=== PATIENT | female | born 1990 | race Caucasian/White ===

== ENCOUNTER 2020-03-30 11:54 | Outpatient (CLI) | payer OTHER ==
--- NOTE | 2020-03-30 16:56 | XRAY Report ---
PROCEDURE: Knee 3 View LT INDICATIONS: KNEE PAIN, LEFT TECHNIQUE: 3 views of the left knee(s) were acquired. COMPARISON: None. FINDINGS: Bones: No acute fractures or dislocations. No suspicious bony lesions. Soft tissues: Small joint effusion. No suspicious soft tissue calcifications. IMPRESSION: Small suprapatellar joint effusion. No acute fracture or dislocation of the left knee. If there is persistent clinical concern for a radiographically occult fracture, recommend immobiliza tion and repeat imaging in 10 to 14 days. Reviewed by: Richard Gomez MD on 03/30/2020 4:54 PM PST Approved by: Richard Gomez MD on 03/30/2020 4:54 PM PST Station ID: [id number]
== END 2020-03-30 23:59 | disposition home or self-care (01) ==
LOC: DI.N 11:54
PROVIDERS: ATTEND Family Medicine
DX: M25.562 Pain in left knee (principal); M25.462 Effusion, left knee

== ENCOUNTER 2020-04-01 06:23 | Emergency (ER) | payer OTHER ==
[2020-04-01] MEDS ORDERED: IBUPROFEN 600 MG TABLET PO STA (07:17)
--- NOTE | 2020-04-01 07:22 | ED Physician Documentation ---
History of Present Illness - Stated complaint Stated Complaint: LT KNEE PX - Chief complaint Chief Complaint: Trauma Ext - History obtained from History obtained from: Patient - Additonal information Additional information: 29-year-old woman with history of diabetes, recent left knee injury 3 weeks ago status post clinic visit 2 days ago presents with worsening pain since that time. She states that she had a mechanical fall onto the knee with sudden onset severe pain that was constant gradually improving, but then started to result in swelling about a week ago prompting her to go to the clinic. X-rays at that time showed no fracture but a suprapatellar effusion. She was discharged and told she had a soft tissue injury. Patient states she has been ambulatory but that her pain has been constant and the swelling is getting worse. 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 - Present Medications Home Medications: Ambulatory Orders Medication Instructions Recorded Confirmed Insulin Glargine [Lantus Solostar] 10 - 20 units SUBQ DAILY 04/01/20 04/01/20 Sitagliptin Phos/Metformin HCl 1 tab PO BID 04/01/20 04/01/20 [Janumet 50-1,000 mg Tablet] - Allergies Allergies/Adverse Reactions: Allergies Allergy/AdvReac Type Severity Reaction Status Date / Time No Known Drug Allergies Allergy Verified 04/01/20 06:38 - Social History Does the pt smoke?: No Smoking Status: Never smoker Does the pt drink ETOH?: Yes Does the pt have substance abuse?: No - Immunizations Immunizations are current?: Yes - POLST Patient has POLST: No PD ED PE NORMAL - Vitals Vital signs reviewed: Yes - General General: Alert and oriented X 3 - HEENT HEENT: PERRL, EOMI - Extremities Extremities: Other (Left knee tender with range of motion. No bony tenderness. +anterior drawer sign. tender with vargus stress) - Neuro Neuro: Other (Normal strength, sensation, and movement in distal left lower extremity) Results - Vitals Vitals: Vital Signs - 24 hr 04/01/20 06:25 Temperature 36.8 C Heart Rate 95 Respiratory 16 Rate Blood Pressure 130/84 H O2 Saturation 98 Oxygen O2 Source Room air PD MEDICAL DECISION MAKING - ED course ED course: 29-year-old woman with left knee injury presents for second opinion after being seen in clinic 2 days ago with worsening pain. Agree that she has a soft tissue injury (likely ligament strain). Will repeat xrays, place in knee immobilizer and have her follow-up with orthopedics in 8 to 10 days. Return precautions given. Departure - Departure Clinical Impression: Suprapatellar effusion of knee, Knee pain Condition: Good Instructions: ED RICE, ED Immobilizer Knee Follow-Up: John Roman MD [Provider Admit Priv/Credential] - Comments: You were seen in the emergency department for persistent knee pain. You have fluid around your knee on examination and on x-ray. It does not appear that you have a break in any of the bones but you likely have a mild ligament tear/strain of the ligaments in your knee. This will require rest and follow-up with orthopedics in 8 to 10 days. Return to the ED if your symptoms worsen or you have other concerns. Forms: Activity restrictions
--- NOTE | 2020-04-01 08:10 | XRAY Report ---
PROCEDURE: Knee 2 View LT INDICATIONS: worsening swelling, knee pain TECHNIQUE: 2 views of the left knee(s) were acquired. COMPARISON: 03/30/2020 FINDINGS: Bones: No fractures or dislocations. No suspicious bony lesions. Soft tissues: There is a small joint effusion. No suspicious soft tissue calcifications. IMPRESSION: Small joint effusion again seen, without an acute bony abnormality seen. If there is strong clinical concern for internal derangement of the knee, please consider a dedicated , scheduled knee MRI for further evaluation (assuming that there is no contraindication). Reviewed by: Hardeep Rivera MD on 04/01/2020 7:09 AM [facility] Approved by: Hardeep Rivera MD on 04/01/2020 7:09 AM [facility] Station ID: [id number]
[2020-04-01 08:29] VITALS: BP 133/74
== END 2020-04-01 08:28 | disposition home or self-care (01) ==
LOC: ED 06:23
DX: M25.462 Effusion, left knee (principal); E11.9 Type 2 diabetes mellitus without complications; Z79.4 Long term (current) use of insulin
CPT/HCPCS: 73560; 99283; A9270

== ENCOUNTER 2020-04-02 12:02 | Inpatient (IN) | payer OTHER ==
[2020-04-02] MEDS ORDERED: HYDROmorphone 1 MG/ML CARPUJECT IVP STA (12:18)
--- NOTE | 2020-04-02 12:21 | ED Physician Documentation ---
History of Present Illness - Stated complaint Stated Complaint: L KNEE PX - Chief complaint Chief Complaint: Ext Problem - History obtained from History obtained from: Patient - Additonal information Additional information: 29-year-old female returns to the emergency department for evaluation of worsening left knee pain. She reports a slip and fall about 1 month ago on the linoleum at home but did not think much of it about 1 week ago she began to have having generalized swelling of the knee and increased pain with weightbearing. She presented to the emergency department yesterday underwent x-ray imaging that showed moderate effusion but no acute fractures. She was placed in a knee immobilizer and advised follow-up with orthopedics. She has had increased difficulty and pain with weightbearing since then. No fevers. She presents the emergency department crying and tearful. She reports that she is taking 1000 mg of ibuprofen 6 times a day. She does have a history of diabetes type 2. Typically has blood sugars in the 120s at home. 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 - Present Medications Home Medications: Ambulatory Orders Medication Instructions Recorded Confirmed Insulin Glargine [Lantus Solostar] 10 - 20 units SUBQ DAILY 04/01/20 04/02/20 Sitagliptin Phos/Metformin HCl 1 tab PO BID 04/01/20 04/02/20 [Janumet 50-1,000 mg Tablet] - Allergies Allergies/Adverse Reactions: Allergies Allergy/AdvReac Type Severity Reaction Status Date / Time No Known Drug Allergies Allergy Verified 04/02/20 12:05 - Social History Does the pt smoke?: No Smoking Status: Never smoker Does the pt drink ETOH?: Yes Does the pt have substance abuse?: No - Immunizations Immunizations are current?: Yes - POLST Patient has POLST: No PD ED PE EXPANDED - General General: Alert, In Pain - Cardiac Cardiac: Regular Rate, Tachy, Radial strong equal, Pedal strong equal, Cap refill < 2 sec - Respiratory Respiratory: Clear to ausultation camila. No: Distress, Labored - Abdomen Abdomen: Normal Bowel sounds. No: Tender to palpation - Extremities Extremities: Left knee (generalized swelling and mild warmth; no erythema; difficulty flexing knee secondary to pain; will not bear weight. + micromotion tenderness) Results - Vitals Vitals: Vital Signs - 24 hr 04/02/20 04/02/20 04/02/20 12:05 13:19 14:08 Temperature 36.7 C 36.9 C 36.8 C Heart Rate 111 H 94 97 Respiratory 20 16 14 Rate Blood Pressure 145/97 H 121/75 123/86 H O2 Saturation 98 96 99 Oxygen O2 Source Room air - Labs Labs: Microbiology 04/02/20 12:54 Body Fluid Culture - Preliminary Synovial Fluid Laboratory Tests 04/02/20 04/02/20 04/02/20 12:40 12:40 12:40 WBC 13.4 H RBC 4.49 Hgb 14.1 Hct 42.0 MCV 93.5 MCH 31.4 H MCHC 33.6 RDW 11.7 L Plt Count 309 MPV 9.6 Neut # (Auto) 9.0 H Lymph # (Auto) 3.3 Edwards # (Auto) 0.7 Eos # (Auto) 0.4 Baso # (Auto) 0.1 Absolute Nucleated RBC 0.00 Nucleated RBC % 0.0 ESR 45 H Sodium 133 L Potassium 3.7 Chloride 98 L Carbon Dioxide 23 Anion Gap 12.0 BUN 9 Creatinine 0.5 Estimated GFR (MDRD) 147 Glucose 352 H POC Whole Bld Glucose Calcium 9.4 Total Bilirubin 0.5 AST 30 ALT 42 Alkaline Phosphatase 198 H C-Reactive Protein 7.4 H Total Protein 7.8 Albumin 3.6 Globulin 4.2 Albumin/Globulin Ratio 0.9 L Lipase 32 Serum HCG, Qual Fluid Source Fluid Color Fluid Clarity Fluid WBC Fluid RBC Fluid Neutrophils % Fluid Lymphocytes % Fluid Monocytes % Fld Mesothelial Cell % Fluid Crystals 04/02/20 04/02/20 04/02/20 12:40 12:54 12:54 WBC RBC Hgb Hct MCV MCH MCHC RDW Plt Count MPV Neut # (Auto) Lymph # (Auto) Edwards # (Auto) Eos # (Auto) Baso # (Auto) Absolute Nucleated RBC Nucleated RBC % ESR Sodium Potassium Chloride Carbon Dioxide Anion Gap BUN Creatinine Estimated GFR (MDRD) Glucose POC Whole Bld Glucose Calcium Total Bilirubin AST ALT Alkaline Phosphatase C-Reactive Protein Total Protein Albumin Globulin Albumin/Globulin Ratio Lipase Serum HCG, Qual NEGATIVE Fluid Source KNEE Fluid Color PINK Fluid Clarity CLOUDY Fluid WBC 92699 Fluid RBC 83332 Fluid Neutrophils % 79 Fluid Lymphocytes % 13 Fluid Monocytes % 8 Fld Mesothelial Cell % Not Reportable Fluid Crystals NONE SEEN 04/02/20 13:29 WBC RBC Hgb Hct MCV MCH MCHC RDW Plt Count MPV Neut # (Auto) Lymph # (Auto) Edwards # (Auto) Eos # (Auto) Baso # (Auto) Absolute Nucleated RBC Nucleated RBC % ESR Sodium Potassium Chloride Carbon Dioxide Anion Gap BUN Creatinine Estimated GFR (MDRD) Glucose POC Whole Bld Glucose 277 H Calcium Total Bilirubin AST ALT Alkaline Phosphatase C-Reactive Protein Total Protein Albumin Globulin Albumin/Globulin Ratio Lipase Serum HCG, Qual Fluid Source Fluid Color Fluid Clarity Fluid WBC Fluid RBC Fluid Neutrophils % Fluid Lymphocytes % Fluid Monocytes % Fld Mesothelial Cell % Fluid Crystals Procedures - Arthrocentesis Joint: Knee Preparation: Consent obtained, Sterile prep and drape Anesthesia: Lidocaine 1% Fluid: Bloody, Cloudy, Sent for crystals, Sent for culture, Fluid obtained - cc (3), Sent for gram stain Aftercare: Dressing applied, No complications PD MEDICAL DECISION MAKING - ED course Complexity details: reviewed results, re-evaluated patient, considered differential, d/w patient ED course: 21-year-old female presents emergency department with worsening left knee pain. This is after a fall about 1 month ago. Seen here yesterday for the pain and had an x-ray completed that showed no fracture but generalized effusion. Since discharge yesterday she has had worsening pain and inability to bear weight. Here in the emergency department we did proceed with an arthrocentesis that showed a white count greater than 22,079% neutrophils. The Gram stain did show rare gram-positive cocci. This case was discussed with on-call orthopedic surgeon Dr. John Roman who would like to take the patient to the OR for washout this afternoon. Screening labs do show a white blood cell count greater than 13,000 as well as a CRP of 7. Blood cultures are pending. 2 g of IV ceftriaxone has been ordered. Plan will be to admit to medicine service with orthopedic consultation. 1530: Dr. Schneider has agreed to admit pt to the hospital following OR this afternoon for washout of left knee by orthopedics service Departure - Departure Disposition: 66 [facility] DC/Xfer Clinical Impression: DM hyperosmolarity type II, uncontrolled Septic arthritis Qualifiers: Septic arthritis location: knee Septic arthritis organism: due to unspecified organism Laterality: left Qualified Code(s): M00.9 - Pyogenic arthritis, unspecified
[2020-04-02] MEDS ORDERED: HYDROmorphone 1 MG/ML CARPUJECT IM STA (12:23)
[2020-04-02] MEDS ORDERED: BUFFERED LIDOCAINE 10 ML SYRINGE SUBQ STA (12:32)
[2020-04-02 12:50] LABS: BASOPHILS # (AUTO) 0.1 10^3/uL (0.0-0.1); BASOPHILS % (AUTO) 0.4 %; EOSINOPHILS # (AUTO) 0.4 10^3/uL (0.0-0.7); EOSINOPHILS % (AUTO) 2.6 %; HGB - HEMOGLOBIN 14.1 g/dL (12.0-16.0); LYMPHOCYTES # (AUTO) 3.3 10^3/uL (1.5-3.5); LYMPHOCYTES % (AUTO) 24.7 %; MEAN CORPUSCULAR HEMOGLOBIN 31.4 pg (27.0-31.0); MEAN CORPUSCULAR HGB CONC 33.6 g/dL (32.0-36.0); MEAN CORPUSCULAR VOLUME 93.5 fL (81.0-99.0); MEAN PLATELET VOLUME 9.6 fL (7.9-10.8); MONOCYTES # (AUTO) 0.7 10^3/uL (0.0-1.0); MONOCYTES % (AUTO) 5.4 %; NEUTROPHILS % (AUTO) 66.7 %; PLT - PLATELET COUNT 309 10^3/uL (130-450); RED BLOOD COUNT 4.49 10^6/uL (4.20-5.40); RED CELL DISTRIBUTION WIDTH 11.7 % (12.0-15.0); WHITE BLOOD COUNT 13.4 x10^3/uL (4.8-10.8)
[2020-04-02] MEDS ORDERED: DEXAMETHASONE 10 MG/ML VIAL PO STA (13:00)
[2020-04-02] MEDS ORDERED: CHERRY SYRUP 10 ML UDC PO ONE (13:00)
[2020-04-02 13:05] LABS: ALBUMIN 3.6 g/dL (3.2-5.5); ALBUMIN/GLOBULIN RATIO 0.9 (1.0-2.2); BILIRUBIN,TOTAL 0.5 mg/dL (0.2-1.0); CALCIUM 9.4 mg/dL (8.5-10.3); CREATININE 0.5 mg/dL (0.4-1.0); CRP - C-REACTIVE PROTEIN 7.4 mg/dL (0-1.0); TOTAL PROTEIN 7.8 g/dL (6.7-8.2)
[2020-04-02 13:25] LABS: BF CLARITY CLOUDY
[2020-04-02 13:32] LABS: BF COLOR PINK
[2020-04-02 13:33] LABS: CC,BF RBC 12000 /mm^3
[2020-04-02] MEDS ORDERED: ONDANSETRON ODT 4 MG TABLET TL STA (13:59)
[2020-04-02 14:06] LABS: LYMPHOCYTES %,BODY FLUID 13 %; MONOCYTES %,BODY FLUID 8 %
[2020-04-02 14:07] LABS: BF SOURCE KNEE
[2020-04-02] MEDS ORDERED: cefTRIAXone 250 MG VIAL IV STA (14:26)
[2020-04-02] MEDS ORDERED: SODIUM CHLORIDE 0.9% 1,000 ML IV STA (14:45)
[2020-04-02] MEDS ORDERED: VANCOMYCIN INJ 1.5 GM in SODIUM CHLORIDE 0.9% 500 ML IV SCH (15:00)
[2020-04-02] MEDS ORDERED: cefTRIAXone 2 GM in SODIUM CHLORIDE 0.9% MINIBAG 100 ML IV STA (15:12)
[2020-04-02 15:19] LABS: HCG,QUALITATIVE BLOOD NEGATIVE
[2020-04-02] MEDS ORDERED: cefTRIAXone 2 GM VIAL ONE (15:26)
--- NOTE | 2020-04-02 15:28 | ANESTHESIA ---
Pre-Anesthesia VS, & Labs - Diagnosis L knee sepsis - Procedure L knee arthroscopic washout Vital Signs: Temp Pulse Resp BP Pulse Ox 36.8 C 97 14 123/86 H 99 04/02/20 14:08 04/02/20 14:08 04/02/20 14:08 04/02/20 14:08 04/02/20 14:08 Height: 5 ft 2 in Weight (kg): 93.894 kg Body Mass Index: 37.8 BMI Classification: Obese - NPO Last Fluid Intake: sips h20 in ER Last Food Intake: 7 hours - Is Patient ?: Waiver signed ([employer]) - Lab Results Current Lab Results: Laboratory Tests 04/02/20 13:29: POC Whole Bld Glucose 277 H 04/02/20 12:40: Serum HCG, Qual NEGATIVE 04/02/20 12:40: ESR 45 H 04/02/20 12:40: Sodium 133 L, Potassium 3.7, Chloride 98 L, Carbon Dioxide 23, Anion Gap 12.0, BUN 9, Creatinine 0.5, Estimated GFR (MDRD) 147, Glucose 352 H, Calcium 9.4, Total Bilirubin 0.5, AST 30, ALT 42, Alkaline Phosphatase 198 H, C- Reactive Protein 7.4 H, Total Protein 7.8, Albumin 3.6, Globulin 4.2, Albumin/Globulin Ratio 0.9 L, Lipase 32 04/02/20 12:40: WBC 13.4 H, RBC 4.49, Hgb 14.1, Hct 42.0, MCV 93.5, MCH 31.4 H, MCHC 33.6, RDW 11.7 L, Plt Count 309, MPV 9.6, Neut # (Auto) 9.0 H, Lymph # (Auto) 3.3, [place] # (Auto) 0.7, Eos # (Auto) 0.4, Baso # (Auto) 0.1, Absolute Nucleated RBC 0.00, Nucleated RBC % 0.0 Lab results reviewed: Yes Fish Bones: 04/02/20 12:40 04/02/20 12:40 Home Medications and Allergies Active Medications Vancomycin HCl 2 gm/ Sodium (Chloride) 500 mls @ 250 mls/hr IV ONCE ONE Stop: 04/02/20 17:29 Ceftriaxone Sodium 2 gm/ (Sodium Chloride) 100 mls @ 200 mls/hr IV ONCE STA Stop: 04/02/20 15:41 Last Admin: 04/02/20 15:17 Dose: 200 mls/hr Documented by: Insulin Glargine [Lantus Solostar] 10 - 20 units SUBQ DAILY 04/01/20 Sitagliptin Phos/Metformin HCl [Janumet 50-1,000 mg Tablet] 1 tab PO BID 04/01/20 Allergies/Adverse Reactions: Allergies Allergy/AdvReac Type Severity Reaction Status Date / Time No Known Drug Allergies Allergy Verified 04/02/20 12:05 Anes History & Medical History - Anesthetic History Anesthesia Complications: reports: No previous complications Family history of Anesthesia Complications: Denies Family history of Malignant Hyperthermia: Denies - Medical History Cardiovascular: reports: None Urinary: reports: None Neuro: reports: None Musculoskeletal: reports: Other (L knee swelling) Endocrine/Autoimmune: reports: Type 2 diabetes Smoking Status: Never smoker Psychosocial: reports: Cannabis History of Cancer?: No - Surgical History Gynecologic: section Orthopedic: Other Exam General: Alert, Oriented x3, Cooperative Dental: WNL Mouth Openin Fingerbreadth Neck Mobility: Normal Mallampati classification: II Thyromental Distance: 4-6 cm Respiratory: Lungs clear, Normal breath sounds, No respiratory distress Cardiovascular: Regular rate Neurological: Normal speech Mental/Cognitive Status: Alert/Oriented X3, Normal for patient Cognitive Status: Within normal limits Plan Anesthesia Type: General Consent for Procedure(s) Verified and Reviewed: Yes Code Status: Attempt Resuscitation ASA classification: 2-Mild systemic disease Is this case an emergency?: Yes
[2020-04-02] MEDS ORDERED: VANCOMYCIN INJ 2 GM in SODIUM CHLORIDE 0.9% 500 ML IV ONE (15:30)
--- NOTE | 2020-04-02 15:40 | HISTORY & PHYSICAL EXAMINATION ---
Chief Complaint - Chief Complaint Chief Complaint: Left knee pain History of Present Illness - Admitted From Admitted From:: er - History Obtained From History obtained from: patient - History of Present Illness HPI Comment/Other: This patient seen in consultation today with regards to her left knee. She states that a week or 2 ago she fell onto the knee and bruised it however did not think she had really done much damage. Knee pain seemed to improve however the past couple days she noticed increased pain and swelling in the knee. She was seen both in urgent care as well as in the emergency room yesterday, where radiographs showed a small effusion with no acute bony abnormalities. She woke up this morning with severe pain in the knee, unable to weight-bear. She noted increased swelling of the knee. She denies any constitutional symptoms. Denies any fevers chills or night sweats. She has not felt unwell. She denies any other sources of infection.Arthrocentesis performed in the emergency room earlier today shows gram-positive cocci on Gram stain. CRP and ESR significantly elevated. WBC 13.4.She has a type II diabetic on insulin. 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 Exam - Vital Signs Vital Signs: Vital Signs x48h Temp Pulse Resp BP Pulse Ox 04/02/20 14:08 36.8 C 97 14 123/86 H 99 04/02/20 13:19 36.9 C 94 16 121/75 96 04/02/20 12:05 36.7 C 111 H 20 145/97 H 98 - Physical Exam General Appearance: positive: No acute distress Eyes Bilateral: positive: Normal inspection, PERRL, EOMI Neck: positive: Nml inspection Respiratory: positive: No respiratory distress, Breath sounds nml Cardiovascular: positive: Regular rate & rhythm Peripheral Pulses: positive: 2+ Abdomen: positive: Non-tender Skin: positive: Color nml, Other (Skin is intact.) Extremities: positive: Other (Examination of the left knee shows obvious swelling with a large joint effusion. Globally tender to palpation. Warm to touch compared to the contralateral side. Range of motion limited by pain.) Neurologic/Psychiatric: positive: Oriented x3, Motor nml, Sensation nml, Mood/affect nml Conclusion/Plan - Problem List (1) Septic arthritis Conclusion/Plan: I have recommended an arthroscopic irrigation and debridement of the left knee. We have discussed the risks and benefits associated with surgery. We have discussed the perioperative recovery course is to be expected. Patient will need at least 2 weeks of intravenous antibiotics, potentially up to 6 weeks.After discussion of surgery, patient has elected to proceed. Surgical site has been marked. Consent has been signed. I have asked the hospitalist to admit the patient for glycemic control, management of comorbidities, and management of antibiotic therapy. Patient will likely require a PICC line. Qualifiers: Septic arthritis location: knee Septic arthritis organism: due to unspecified organism Laterality: left Qualified Code(s): M00.9 - Pyogenic arthritis, unspecified - Lab Results Lab results reviewed: Yes Fish Bones: 04/02/20 12:40 04/02/20 12:40 Other Lab Results: Gram stain of the left knee intra-articular fluid positive for gram-positive cocci. - Diagnostic Imaging Results Diagnostic Imaging Results: positive: Read independently (No acute bony abnormalities noted. Moderate joint effusion)
[2020-04-02] MEDS ORDERED: LIDOCAINE 2%-EPI 1:100000 20 ML MDV ONE (15:43)
[2020-04-02] MEDS ORDERED: ROPIVACAINE 0.2% PF 20ML VIAL ONE (15:43)
[2020-04-02] MEDS ORDERED: ROPIVACAINE 0.5% PF 20 ML AMPULE ONE (15:44)
[2020-04-02] MEDS ORDERED: ROPIVACAINE 0.5% PF 20 ML AMPULE IU ONE ×2 (15:49)
[2020-04-02] MEDS ORDERED: LIDOCAINE 2%-EPI 1:100000 20 ML MDV SUBQ ONE (15:50)
[2020-04-02] MEDS ORDERED: VANCOMYCIN 1 GM VIAL ONE (15:52)
[2020-04-02 16:03] LABS: C. PNEUMONIAE- RESP PCR PANEL NOT DETECTED
--- NOTE | 2020-04-02 16:06 | OPERATIVE REPORT ---
Operative Report - General Procedure Date: 04/02/20 Planned Procedure: Arthroscopic irrigation and debridement left knee Pre-Op Diagnosis: Septic arthritis left knee Procedure Performed: Arthroscopic irrigation and debridement left knee Post Op Diagnosis: Same - Procedure Note Primary Surgeon: Abel Secondary Surgeon: Eliseo Anesthesia Technique: General LMA Estimated Blood Loss (mL): 5 Complications: none - Other Other Information/Narrative: Preamble: This 29-year-old diabetic presented to the emergency room with septic arthritis of the left knee. After discussion of operative and nonoperative management, patient elected to proceed with irrigation and debridement of the left knee. Consent was signed and site was marked. Patient received intravenous antibiotics in the emergency room for treatment of infection. Operative note: Patient was taken to the operating room general anesthetic was administered. Placed in the supine position with all bony prominences well- padded. Leg was then prepped and draped in usual sterile fashion. Surgical timeout was completed, verifying patient, procedure and side. Knee was preinjected with 2% lidocaine with epinephrine for hemostasis. Superolateral outflow portal created followed by anteromedial and anterolateral arthroscopy working portals. Arthroscope was introduced into the joint. There was evidence of extensive synovitis involving the fat pad with some synovitis in the notch.Patellofemoral compartment visualized and articular cartilage intact. Medial compartment visualized. Medial meniscus intact. 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 Lateral compartment visualized and there was focal area of grade II chondromalacia in the central lateral femoral condyle as well. Lateral meniscus intact. The knee was flushed with 6 L normal saline. Portals closed with nylon. Knee was infiltrated with 0.5% ropivacaine and 1 g of vancomycin. Sterile dressings were then applied. Patient was then transferred to regular hospital bed and taken to the recovery room in stable condition with no intraoperative complications. Postoperative plan: Vancomycin empirically until cultures and sensitivities are back. Probable duration of intravenous antibiotics 4 to 6 weeks. Weightbearing as tolerated. Aspirin 81 mg p.o. twice daily for 14 days for prophylaxis against deep vein thrombosis. Dressing change postoperative day 2 then as needed. Sutures out 10 to 14 days in clinic. Outpatient referral to infectious diseases.
[2020-04-02] MEDS ORDERED: ePHEDrine 50 MG/ML VIAL IVP PRN (16:22)
[2020-04-02] MEDS ORDERED: ATROPINE ABBOJECT 1 MG/10 ML SYRINGE IVP PRN (16:22)
[2020-04-02] MEDS ORDERED: NALOXONE 0.4 MG/ML VIAL IVP PRN (16:22)
[2020-04-02] MEDS ORDERED: MORPHINE 2 MG/ML CARPUJECT IVP PRN (16:22)
[2020-04-02] MEDS ORDERED: ONDANSETRON 4 MG/2 ML VIAL IVP PRN (16:22)
[2020-04-02] MEDS ORDERED: fentaNYL 100 MCG/2 ML VIAL IVP PRN (16:22)
[2020-04-02] MEDS ORDERED: HYDROmorphone 0.5 MG/0.5 ML SYRINGE IVP PRN (16:22)
[2020-04-02] MEDS ORDERED: ACETAMINOPHEN 1,000 MG/100 ML 100 ML IV PRN (16:58)
[2020-04-02] MEDS ORDERED: DOCUSATE SODIUM 100 MG CAPSULE PO PRN (16:58)
[2020-04-02] MEDS ORDERED: SODIUM CHLORIDE FLUSH 0.9% 10 ML SYRINGE IVP PRN (16:58)
[2020-04-02] MEDS ORDERED: PROCHLORPERAZINE 10 MG/2 ML VIAL IVP PRN (16:58)
[2020-04-02] MEDS ORDERED: LACTATED RINGERS 1,000 ML IV ONE ×2 (16:58→17:32)
[2020-04-02] MEDS ORDERED: LACTATED RINGERS 1,000 ML IV SCH (17:00)
[2020-04-02] MEDS ORDERED: HYDROmorphone 1 MG/ML CARPUJECT ONE (17:27)
--- NOTE | 2020-04-02 17:35 | ANESTHESIA POST OP EVALUATION ---
Anesthesia Post Eval - Post Anesthesia Eval Vitals: Last Vital Signs Temp 37 C 04/02/20 17:25 Pulse 90 04/02/20 17:25 Resp 16 04/02/20 17:25 BP 122/88 H 04/02/20 17:25 Pulse Ox 100 04/02/20 17:25 CV Function Including HR & BP: positive: Stable Pain Control: positive: Satisfactory Nausea & Vomiting: positive: Negative (treated with Zofran) Mental Status: positive: Baseline Respiratory Status: Airway Patent (cough that continues to resolve) Hydration Status: Satisfactory Anesthesia Complications: positive: None
[2020-04-02] MEDS ORDERED: INSULIN REGULAR HUMAN 300 UNIT/3 ML VIAL SUBQ SCH (18:00)
[2020-04-02] MEDS: SODIUM CHLORIDE FLUSH 0.9% 10 ML SYRINGE IVP SCH (18:41)
[2020-04-02] MEDS: METOCLOPRAMIDE 10 MG/2 ML VIAL IVP PRN (19:15)
--- NOTE | 2020-04-02 19:19 | HISTORY & PHYSICAL EXAMINATION ---
Chief Complaint - Chief Complaint Chief Complaint: Left knee swelling and pain History of Present Illness - Admitted From Admitted From:: [facility] ED - History Obtained From Records Reviewed: Yes History obtained from: Patient - History of Present Illness HPI Comment/Other: Patient is 29-year-old female with medical history significant for diabetes mellitus type 2 on Lantus who presented to the ED with worsening left knee swelling and pain to the point where she was unable to walk today. Her symptoms started a couple of weeks ago when she slipped and fell in her kitchen landing on her left knee. The knee was bruised but there was no puncture injury to it. 1 week later it became harder to bend the knee. Another week after that the k nee was swollen. She went to urgent care where an x-ray was done on , 03/30/2020. She came to the emergency department on 04/01/2020 because the pain in the left knee had gotten worse and it was more difficult to get around. X-ray was repeated and she was given an immobilizing knee brace and discharged home. However today the pain was unbearable and she could not walk so she returned to the ED. Fluid was aspirated from the knee joint and it was concerning for a septic joint. There were a few gram-positive cocci on Gram stain and 22,000 WBCs. The patient did not have fever or redness in the area. However the knee was warm to touch. She denied chest pain, dyspnea, abdominal pain, nausea, vomiting. She was taken to the OR for a washout by Dr. Roman and then to the [facility] floor afterwards. She is being admitted for further treatment. Currently at bedside she was resting comfortably. History - Past Medical History Cardiovascular: reports: None Neuro: reports: None Endocrine/Autoimmune: reports: Type 2 diabetes : reports: None Musculoskeletal: reports: Other Derm: reports: Other (Hydradenitis suppurativa) MRSA Hx?: No - Past Surgical History Ortho: reports: Other /DRAFTER LANDSCAPE: reports: section Other past surgical history: Reconstructive surgery to the left ankle ligament. Pilonidal cyst removal. Tonsillectomy and adenoidectomy - Family & Social History Family History Comment/Other: The patient's father in his 40s from esophageal cancer. He used to smoke and drink. The patient's mother has diabetes mellitus type 2. She has obesity and underwent a gastric bypass. The patient sister has diabetes mellitus type 2. Social History Notes: The patient lives at home with her son and . Her is in the [place] and is currently in [employer] on duty. Her sister is currently living with her and helping with her son. The patient does not smoke tobacco products. She quit smoking 3 years ago. She smoked for 2 years before then. She stated that a pack of cigarettes would last her about a month when she was smoking. She smokes marijuana. She rarely drinks alcohol. - POLST Patient has POLST: No POLST Status: Full Code Meds/Allgy - Home Medications Home Medications: Ambulatory Orders Medication Instructions Recorded Confirmed Insulin Glargine [Lantus Solostar] 10 - 20 units SUBQ DAILY 04/01/20 04/02/20 Sitagliptin Phos/Metformin HCl 1 tab PO BID 04/01/20 04/02/20 [Janumet 50-1,000 mg Tablet] - Allergies Allergies/Adverse Reactions: Allergies Allergy/AdvReac Type Severity Reaction Status Date / Time No Known Drug Allergies Allergy Verified 04/02/20 12:05 Review of Systems - Constitutional Constitutional: denies: Fatigue, Fever, Chills - Eyes Eyes: denies: Pain, Dipolpia - Ears, Nose & Throat Ears, Nose & Throat: denies: Ear pain, Sore throat - Cardiovascular Cariovascular: denies: Irregular heart rate, Palpitations, Chest pain - Respiratory Respiratory: denies: Cough, Sputum production, Wheezing, SOB at rest, SOB with exertion - Gastrointestinal Gastrointestinal: denies: Abdominal pain, Abdominal distention, Constipation, Diarrhea, Coffee grounds emesis, Reflux/heartburn - Musculoskeletal Musculoskeletal: reports: Joint pain (Left knee joint swelling and pain). denies: Muscle pain, Back pain, Muscle aches - Integumentary Integumentary: denies: Rash, Pruritis - Neurological Neurological: denies: General weakness, Focal weakness, Headache, Dizziness - Psychiatric Psychiatric: denies: Depression, Anxiety - Endocrine Endocrine: denies: Polyuria, Polydypsia - Hematologic/Lymphatic Hematologic/Lymphatic: denies: Anemia, Bruising, Petechiae Prior Level of Functionality: She is independent of activities of daily living. Exam - Vital Signs Vital Signs: Vital Signs x48h Temp Pulse Pulse Resp BP BP Pulse Ox 04/02/20 18:34 37.0 C 92 20 123/80 99 04/02/20 17:35 37 C 87 16 132/74 H 99 04/02/20 17:30 36.9 C 85 16 135/87 H 98 04/02/20 17:25 37 C 90 16 122/88 H 100 04/02/20 17:20 37 C 88 16 120/76 99 04/02/20 17:15 37 C 89 16 113/58 L 100 04/02/20 17:10 36.9 C 98 19 134/89 H 100 04/02/20 17:05 36.8 C 99 18 133/78 H 100 04/02/20 17:00 36.8 C 103 H 20 119/75 99 04/02/20 15:40 37.3 C 102 H 16 122/77 98 04/02/20 14:08 36.8 C 97 14 123/86 H 99 04/02/20 13:19 36.9 C 94 16 121/75 96 04/02/20 12:05 36.7 C 111 H 20 145/97 H 98 - Physical Exam General Appearance: positive: Alert, Mild distress, Moderate distress Eyes Bilateral: positive: PERRL, EOMI ENT: positive: No signs of dehydration Neck: positive: No JVD, Trachea midline Respiratory: positive: Chest non-tender, No respiratory distress, Breath sounds nml. negative: Wheezes, Rales, Rhonchi Cardiovascular: positive: Regular rate & rhythm, No murmur. negative: Tachycardia Abdomen: negative: Non-tender, No organomegaly, Nml bowel sounds, No distention, Guarding, Rebound Back: negative: Nml inspection, CVA tenderness (R) Skin: positive: Color nml, No rash, Warm, Dry Extremities: positive: Joint swelling (Left knee. Left lower extremity is currently wrapped in bandage status post washout of the left knee joint.) Neurologic/Psychiatric: positive: Oriented x3, Mood/affect nml Conclusion/Plan - Problem List (1) Septic arthritis Conclusion/Plan: Status post washout by Dr. Roman. Gram stain from synovial fluid showed rare gram-positive cocci. Patient was given vancomycin and Rocephin in the ED. We will continue vancomycin and Rocephin 1 g IV daily for now. Synovial fluid cultures pending. We will de-escalate antibiotics accordingly. Pain management as needed. PT/OT to evaluate, treat and give recommendations. Orthopedics following. Qualifiers: Septic arthritis location: knee Septic arthritis organism: due to unspecified organism Laterality: left Qualified Code(s): M00.9 - Pyogenic arthritis, unspecified (2) DM hyperosmolarity type II, uncontrolled Conclusion/Plan: Patient's hemoglobin A1c was 11.6. Patient normally takes Lantus 20 units nightly if blood sugar greater than or equal to 150 and 10 units nightly if blood sugar less than 150. Lantus 20 units nightly ordered. Patient placed on moderate dose sliding scale insulin. Accu-Cheks before every meal and at bedtime. Carb controlled diet. - Lab Results Lab results reviewed: Yes Fish Bones: 04/02/20 12:40 04/02/20 12:40 Core Measures - Anticipated LOS I expect patient to be DC'd or transferred within 96 hours.: Yes - DVT/VTE - Prophylaxis VTE/DVT Device ordered at admit?: Yes VTE/DVT Prophylaxis med ordered at admit?: Yes
[2020-04-02 21:20] LABS: HEMOGLOBIN A1c% 11.6 % (4.27-6.07)
[2020-04-02] MEDS: ASPIRIN EC 81 MG TABLET PO SCH (22:07)
[2020-04-02] MEDS: INSULIN GLARGINE 300 UNIT/3 ML PEN SUBQ SCH (22:07)
[2020-04-02] MEDS ORDERED: LORazepam 2 MG/ML VIAL IVP PRN (22:13)
[2020-04-02] MEDS: INSULIN ASPART 300 UNIT/3 ML PEN SUBQ SCH (22:15)
[2020-04-02] MEDS ORDERED: NALOXONE 2 MG in SODIUM CHLORIDE 0.9% 495 ML IV SCH (23:00)
[2020-04-03] MEDS: HYDROcod/ACETAM 5/325 MG TABLET PO PRN ×4 (00:40→15:57)
[2020-04-03] MEDS ORDERED: VANCOMYCIN INJ 1.5 GM in SODIUM CHLORIDE 0.9% 500 ML IV SCH (04:00)
[2020-04-03] MEDS ORDERED: WATER FOR INJECTION,STERILE 20 ML MC ONE (04:30)
[2020-04-03] MEDS: ACETAMINOPHEN 325 MG TABLET PO PRN ×2 (04:55→14:20)
[2020-04-03] MEDS ORDERED: BENZOCAINE/MENTHOL LOZENGE MM PRN (04:56)
[2020-04-03] MEDS: SODIUM CHLORIDE FLUSH 0.9% 10 ML SYRINGE IVP SCH ×3 (05:06→17:02)
[2020-04-03] MEDS: ONDANSETRON 4 MG/2 ML VIAL IVP PRN ×2 (05:46→14:19)
[2020-04-03 05:55] LABS: BASOPHILS % (AUTO) 0.2 %; HGB - HEMOGLOBIN 13.1 g/dL (12.0-16.0); LYMPHOCYTES # (AUTO) 1.8 10^3/uL (1.5-3.5); LYMPHOCYTES % (AUTO) 11.3 %; MEAN CORPUSCULAR HEMOGLOBIN 30.8 pg (27.0-31.0); MEAN CORPUSCULAR HGB CONC 32.3 g/dL (32.0-36.0); MEAN CORPUSCULAR VOLUME 95.5 fL (81.0-99.0); MEAN PLATELET VOLUME 9.9 fL (7.9-10.8); MONOCYTES # (AUTO) 0.4 10^3/uL (0.0-1.0); MONOCYTES % (AUTO) 2.3 %; NEUTROPHILS # (AUTO) 13.3 10^3/uL (1.5-6.6); NEUTROPHILS % (AUTO) 85.7 %; PLT - PLATELET COUNT 295 10^3/uL (130-450); RED BLOOD COUNT 4.25 10^6/uL (4.20-5.40); RED CELL DISTRIBUTION WIDTH 11.6 % (12.0-15.0); WHITE BLOOD COUNT 15.5 x10^3/uL (4.8-10.8)
[2020-04-03 06:08] LABS: ALBUMIN 3.2 g/dL (3.2-5.5); ALBUMIN/GLOBULIN RATIO 0.9 (1.0-2.2); BILIRUBIN,TOTAL 1.1 mg/dL (0.2-1.0); CALCIUM 8.7 mg/dL (8.5-10.3); CREATININE 0.5 mg/dL (0.4-1.0); TOTAL PROTEIN 6.9 g/dL (6.7-8.2)
--- NOTE | 2020-04-03 07:21 | PROVIDER PROGRESS NOTE ---
Subjective - General Admit Date: 04/02/20 Procedure Date: 04/02/20 Post Op Days: 1 Procedure Performed: Arthroscopic washout left knee - Review of Systems Wound/Incisions: positive: Dressing dry and intact General: positive: No symptoms Musculoskeletal: positive: Joint pain (Denies numbness and tingling) Objective - Patient Data Vital Signs: Vital Signs x48h Temp Pulse Resp BP Pulse Ox 04/03/20 04:53 36.5 C 89 16 118/77 99 04/03/20 00:23 36.5 C 80 18 120/85 H 98 Weight: Weight 04/01/20 04/02/20 04/03/20 23:59 23:59 23:59 Weight (kg) 98 kg Intake & Output: Intake and Output Totals x24h 04/01/20 04/02/20 04/03/20 23:59 23:59 23:59 Intake Total 1900 1733 Output Total 900 Balance 1000 1733 - Lab Results Lab Results: 04/03/20 05:35 04/03/20 05:35 Other Lab Results: Lab Results x24hrs 04/03/20 04/03/20 04/02/20 Range/Units 05:35 05:35 18:35 WBC 15.5 H (4.8-10.8) x10^3/uL RBC 4.25 (4.20-5.40) 10^6/uL Hgb 13.1 (12.0-16.0) g/dL Hct 40.6 (37.0-47.0) % MCV 95.5 (81.0-99.0) fL MCH 30.8 (27.0-31.0) pg MCHC 32.3 (32.0-36.0) g/dL RDW 11.6 L (12.0-15.0) % Plt Count 295 (130-450) 10^3/uL MPV 9.9 (7.9-10.8) fL Neut # (Auto) 13.3 H (1.5-6.6) 10^3/uL Lymph # (Auto) 1.8 (1.5-3.5) 10^3/uL Treasure # (Auto) 0.4 (0.0-1.0) 10^3/uL Eos # (Auto) 0.0 (0.0-0.7) 10^3/uL Baso # (Auto) 0.0 (0.0-0.1) 10^3/uL Absolute Nucleated RBC 0.00 x10^3/uL Nucleated RBC % 0.0 /100WBC ESR (0-20) mm/Hr Sodium 132 L (135-145) mmol/L Potassium 3.7 (3.5-5.0) mmol/L Chloride 100 L (101-111) mmol/L Carbon Dioxide 21 (21-32) mmol/L Anion Gap 11.0 (6-13) BUN 15 (6-20) mg/dL Creatinine 0.5 (0.4-1.0) mg/dL Estimated GFR (MDRD) 147 (>89) Glucose 307 H (70-100) mg/dL POC Whole Bld Glucose 333 H (70 - 100) mg/dL Estimat Average Glucose (70-100) mg/dL Hemoglobin A1c % (4.27-6.07) % Calcium 8.7 (8.5-10.3) mg/dL Total Bilirubin 1.1 H (0.2-1.0) mg/dL AST 23 (10-42) IU/L ALT 37 (10-60) IU/L Alkaline Phosphatase 139 H (42-121) IU/L C-Reactive Protein (0-1.0) mg/dL Total Protein 6.9 (6.7-8.2) g/dL Albumin 3.2 (3.2-5.5) g/dL Globulin 3.7 (2.1-4.2) g/dL Albumin/Globulin Ratio 0.9 L (1.0-2.2) Lipase (22-51) U/L Serum HCG, Qual Fluid Source Fluid Color Fluid Clarity Fluid WBC /mm^3 Fluid RBC /mm^3 Fluid Neutrophils % % Fluid Lymphocytes % % Fluid Monocytes % % Fld Mesothelial Cell % Fluid Crystals Nasal Adenovirus (PCR) Nasal B. parapertussis DNA (PCR) Nasal Coronavir 229E PCR Nasal Coronavir HKU1 PCR Nasal Coronavir NL63 PCR Nasal Coronavir OC43 PCR Nasal Enterovir/Rhinovir PCR Nasal Influenza B PCR Nasal Influenza A PCR Nasal Parainfluen 1 PCR Nasal Parainfluen 2 PCR Nasal Parainfluen 3 PCR Nasal Parainfluen 4 PCR Nasal RSV (PCR) Nasal B.pertussis DNA PCR Nasal C.pneumoniae (PCR) Da Human Metapneumo PCR Nasal M.pneumoniae (PCR) Nasal SARS-CoV-2 (PCR) Serum Ketones (NEGATIVE) 04/02/20 04/02/20 04/02/20 Range/Units 14:42 13:29 12:54 WBC (4.8-10.8) x10^3/uL RBC (4.20-5.40) 10^6/uL Hgb (12.0-16.0) g/dL Hct (37.0-47.0) % MCV (81.0-99.0) fL MCH (27.0-31.0) pg MCHC (32.0-36.0) g/dL RDW (12.0-15.0) % Plt Count (130-450) 10^3/uL MPV (7.9-10.8) fL Neut # (Auto) (1.5-6.6) 10^3/uL Lymph # (Auto) (1.5-3.5) 10^3/uL Treasure # (Auto) (0.0-1.0) 10^3/uL Eos # (Auto) (0.0-0.7) 10^3/uL Baso # (Auto) (0.0-0.1) 10^3/uL Absolute Nucleated RBC x10^3/uL Nucleated RBC % /100WBC ESR (0-20) mm/Hr Sodium (135-145) mmol/L Potassium (3.5-5.0) mmol/L Chloride (101-111) mmol/L Carbon Dioxide (21-32) mmol/L Anion Gap (6-13) BUN (6-20) mg/dL Creatinine (0.4-1.0) mg/dL Estimated GFR (MDRD) (>89) Glucose (70-100) mg/dL POC Whole Bld Glucose 277 H (70 - 100) mg/dL Estimat Average Glucose (70-100) mg/dL Hemoglobin A1c % (4.27-6.07) % Calcium (8.5-10.3) mg/dL Total Bilirubin (0.2-1.0) mg/dL AST (10-42) IU/L ALT (10-60) IU/L Alkaline Phosphatase (42-121) IU/L C-Reactive Protein (0-1.0) mg/dL Total Protein (6.7-8.2) g/dL Albumin (3.2-5.5) g/dL Globulin (2.1-4.2) g/dL Albumin/Globulin Ratio (1.0-2.2) Lipase (22-51) U/L Serum HCG, Qual Fluid Source Fluid Color Fluid Clarity Fluid WBC /mm^3 Fluid RBC /mm^3 Fluid Neutrophils % % Fluid Lymphocytes % % Fluid Monocytes % % Fld Mesothelial Cell % Fluid Crystals NONE SEEN Nasal Adenovirus (PCR) NOT DETECTED Nasal B. parapertussis DNA (PCR) NOT DETECTED Nasal Coronavir 229E PCR NOT DETECTED Nasal Coronavir HKU1 PCR NOT DETECTED Nasal Coronavir NL63 PCR NOT DETECTED Nasal Coronavir OC43 PCR NOT DETECTED Nasal Enterovir/Rhinovir PCR NOT DETECTED Nasal Influenza B PCR NOT DETECTED Nasal Influenza A PCR NOT DETECTED Nasal Parainfluen 1 PCR NOT DETECTED Nasal Parainfluen 2 PCR NOT DETECTED Nasal Parainfluen 3 PCR NOT DETECTED Nasal Parainfluen 4 PCR NOT DETECTED Nasal RSV (PCR) NOT DETECTED Nasal B.pertussis DNA PCR NOT DETECTED Nasal C.pneumoniae (PCR) NOT DETECTED Da Human Metapneumo PCR NOT DETECTED Nasal M.pneumoniae (PCR) NOT DETECTED Nasal SARS-CoV-2 (PCR) NOT DETECTED Serum Ketones (NEGATIVE) 04/02/20 04/02/20 04/02/20 Range/Units 12:54 12:40 12:40 WBC (4.8-10.8) x10^3/uL RBC (4.20-5.40) 10^6/uL Hgb (12.0-16.0) g/dL Hct (37.0-47.0) % MCV (81.0-99.0) fL MCH (27.0-31.0) pg MCHC (32.0-36.0) g/dL RDW (12.0-15.0) % Plt Count (130-450) 10^3/uL MPV (7.9-10.8) fL Neut # (Auto) (1.5-6.6) 10^3/uL Lymph # (Auto) (1.5-3.5) 10^3/uL Treasure # (Auto) (0.0-1.0) 10^3/uL Eos # (Auto) (0.0-0.7) 10^3/uL Baso # (Auto) (0.0-0.1) 10^3/uL Absolute Nucleated RBC x10^3/uL Nucleated RBC % /100WBC ESR (0-20) mm/Hr Sodium (135-145) mmol/L Potassium (3.5-5.0) mmol/L Chloride (101-111) mmol/L Carbon Dioxide (21-32) mmol/L Anion Gap (6-13) BUN (6-20) mg/dL Creatinine (0.4-1.0) mg/dL Estimated GFR (MDRD) (>89) Glucose (70-100) mg/dL POC Whole Bld Glucose (70 - 100) mg/dL Estimat Average Glucose 286 H (70-100) mg/dL Hemoglobin A1c % 11.6 H (4.27-6.07) % Calcium (8.5-10.3) mg/dL Total Bilirubin (0.2-1.0) mg/dL AST (10-42) IU/L ALT (10-60) IU/L Alkaline Phosphatase (42-121) IU/L C-Reactive Protein (0-1.0) mg/dL Total Protein (6.7-8.2) g/dL Albumin (3.2-5.5) g/dL Globulin (2.1-4.2) g/dL Albumin/Globulin Ratio (1.0-2.2) Lipase (22-51) U/L Serum HCG, Qual Fluid Source KNEE Fluid Color PINK Fluid Clarity CLOUDY Fluid WBC 85082 /mm^3 Fluid RBC 07075 /mm^3 Fluid Neutrophils % 79 % Fluid Lymphocytes % 13 % Fluid Monocytes % 8 % Fld Mesothelial Cell % Not Reportable Fluid Crystals Nasal Adenovirus (PCR) Nasal B. parapertussis DNA (PCR) Nasal Coronavir 229E PCR Nasal Coronavir HKU1 PCR Nasal Coronavir NL63 PCR Nasal Coronavir OC43 PCR Nasal Enterovir/Rhinovir PCR Nasal Influenza B PCR Nasal Influenza A PCR Nasal Parainfluen 1 PCR Nasal Parainfluen 2 PCR Nasal Parainfluen 3 PCR Nasal Parainfluen 4 PCR Nasal RSV (PCR) Nasal B.pertussis DNA PCR Nasal C.pneumoniae (PCR) Da Human Metapneumo PCR Nasal M.pneumoniae (PCR) Nasal SARS-CoV-2 (PCR) Serum Ketones NEGATIVE (NEGATIVE) 04/02/20 04/02/20 04/02/20 Range/Units 12:40 12:40 12:40 WBC (4.8-10.8) x10^3/uL RBC (4.20-5.40) 10^6/uL Hgb (12.0-16.0) g/dL Hct (37.0-47.0) % MCV (81.0-99.0) fL MCH (27.0-31.0) pg MCHC (32.0-36.0) g/dL RDW (12.0-15.0) % Plt Count (130-450) 10^3/uL MPV (7.9-10.8) fL Neut # (Auto) (1.5-6.6) 10^3/uL Lymph # (Auto) (1.5-3.5) 10^3/uL Treasure # (Auto) (0.0-1.0) 10^3/uL Eos # (Auto) (0.0-0.7) 10^3/uL Baso # (Auto) (0.0-0.1) 10^3/uL Absolute Nucleated RBC x10^3/uL Nucleated RBC % /100WBC ESR 45 H (0-20) mm/Hr Sodium 133 L (135-145) mmol/L Potassium 3.7 (3.5-5.0) mmol/L Chloride 98 L (101-111) mmol/L Carbon Dioxide 23 (21-32) mmol/L Anion Gap 12.0 (6-13) BUN 9 (6-20) mg/dL Creatinine 0.5 (0.4-1.0) mg/dL Estimated GFR (MDRD) 147 (>89) Glucose 352 H (70-100) mg/dL POC Whole Bld Glucose (70 - 100) mg/dL Estimat Average Glucose (70-100) mg/dL Hemoglobin A1c % (4.27-6.07) % Calcium 9.4 (8.5-10.3) mg/dL Total Bilirubin 0.5 (0.2-1.0) mg/dL AST 30 (10-42) IU/L ALT 42 (10-60) IU/L Alkaline Phosphatase 198 H (42-121) IU/L C-Reactive Protein 7.4 H (0-1.0) mg/dL Total Protein 7.8 (6.7-8.2) g/dL Albumin 3.6 (3.2-5.5) g/dL Globulin 4.2 (2.1-4.2) g/dL Albumin/Globulin Ratio 0.9 L (1.0-2.2) Lipase 32 (22-51) U/L Serum HCG, Qual NEGATIVE Fluid Source Fluid Color Fluid Clarity Fluid WBC /mm^3 Fluid RBC /mm^3 Fluid Neutrophils % % Fluid Lymphocytes % % Fluid Monocytes % % Fld Mesothelial Cell % Fluid Crystals Nasal Adenovirus (PCR) Nasal B. parapertussis DNA (PCR) Nasal Coronavir 229E PCR Nasal Coronavir HKU1 PCR Nasal Coronavir NL63 PCR Nasal Coronavir OC43 PCR Nasal Enterovir/Rhinovir PCR Nasal Influenza B PCR Nasal Influenza A PCR Nasal Parainfluen 1 PCR Nasal Parainfluen 2 PCR Nasal Parainfluen 3 PCR Nasal Parainfluen 4 PCR Nasal RSV (PCR) Nasal B.pertussis DNA PCR Nasal C.pneumoniae (PCR) Da Human Metapneumo PCR Nasal M.pneumoniae (PCR) Nasal SARS-CoV-2 (PCR) Serum Ketones (NEGATIVE) 04/02/20 Range/Units 12:40 WBC 13.4 H (4.8-10.8) x10^3/uL RBC 4.49 (4.20-5.40) 10^6/uL Hgb 14.1 (12.0-16.0) g/dL Hct 42.0 (37.0-47.0) % MCV 93.5 (81.0-99.0) fL MCH 31.4 H (27.0-31.0) pg MCHC 33.6 (32.0-36.0) g/dL RDW 11.7 L (12.0-15.0) % Plt Count 309 (130-450) 10^3/uL MPV 9.6 (7.9-10.8) fL Neut # (Auto) 9.0 H (1.5-6.6) 10^3/uL Lymph # (Auto) 3.3 (1.5-3.5) 10^3/uL Treasure # (Auto) 0.7 (0.0-1.0) 10^3/uL Eos # (Auto) 0.4 (0.0-0.7) 10^3/uL Baso # (Auto) 0.1 (0.0-0.1) 10^3/uL Absolute Nucleated RBC 0.00 x10^3/uL Nucleated RBC % 0.0 /100WBC ESR (0-20) mm/Hr Sodium (135-145) mmol/L Potassium (3.5-5.0) mmol/L Chloride (101-111) mmol/L Carbon Dioxide (21-32) mmol/L Anion Gap (6-13) BUN (6-20) mg/dL Creatinine (0.4-1.0) mg/dL Estimated GFR (MDRD) (>89) Glucose (70-100) mg/dL POC Whole Bld Glucose (70 - 100) mg/dL Estimat Average Glucose (70-100) mg/dL Hemoglobin A1c % (4.27-6.07) % Calcium (8.5-10.3) mg/dL Total Bilirubin (0.2-1.0) mg/dL AST (10-42) IU/L ALT (10-60) IU/L Alkaline Phosphatase (42-121) IU/L C-Reactive Protein (0-1.0) mg/dL Total Protein (6.7-8.2) g/dL Albumin (3.2-5.5) g/dL Globulin (2.1-4.2) g/dL Albumin/Globulin Ratio (1.0-2.2) Lipase (22-51) U/L Serum HCG, Qual Fluid Source Fluid Color Fluid Clarity Fluid WBC /mm^3 Fluid RBC /mm^3 Fluid Neutrophils % % Fluid Lymphocytes % % Fluid Monocytes % % Fld Mesothelial Cell % Fluid Crystals Nasal Adenovirus (PCR) Nasal B. parapertussis DNA (PCR) Nasal Coronavir 229E PCR Nasal Coronavir HKU1 PCR Nasal Coronavir NL63 PCR Nasal Coronavir OC43 PCR Nasal Enterovir/Rhinovir PCR Nasal Influenza B PCR Nasal Influenza A PCR Nasal Parainfluen 1 PCR Nasal Parainfluen 2 PCR Nasal Parainfluen 3 PCR Nasal Parainfluen 4 PCR Nasal RSV (PCR) Nasal B.pertussis DNA PCR Nasal C.pneumoniae (PCR) Da Human Metapneumo PCR Nasal M.pneumoniae (PCR) Nasal SARS-CoV-2 (PCR) Serum Ketones (NEGATIVE) - Current Medications Current Medications: Current Medications Generic Name Dose Route Start Last Admin Trade Name Freq PRN Reason Stop Dose Admin Acetaminophen 650 - 975 mg 04/02/20 16:58 04/03/20 04:55 Acetaminophen 325 Mg Tablet PO 650 mg Q4HR PRN Administration PAIN Hydrocodone Bitart/Acetaminophen 1 tab 04/02/20 16:58 04/03/20 04:55 Hydrocod/Acetam 5/325 Mg Tablet PO 1 tab Q4HR PRN Administration PAIN Aspirin 81 mg 04/02/20 21:00 04/02/20 22:07 Aspirin Ec 81 Mg Tablet PO 81 mg BID NURYS Administration Vancomycin HCl 1.5 gm/ Sodium 500 mls @ 325 mls/hr 04/03/20 04:00 04/03/20 06:48 Chloride IV Infused Q12H NURYS Infusion Insulin Aspart 1 - 9 unit 04/02/20 21:52 04/02/20 22:15 Insulin Aspart 300 Unit/3 Ml Pen SUBQ 9 unit 0800,1200,1700,2100 NURYS Administration Protocol Insulin Glargine 20 unit 04/02/20 21:00 04/02/20 22:07 Insulin Glargine 300 Unit/3 Ml Pen SUBQ 20 unit QPM NURYS Administration Metoclopramide HCl 10 mg 04/02/20 16:22 04/02/20 19:15 Metoclopramide 10 Mg/2 Ml Vial IVP 10 mg Q6HR PRN Administration N/V not relieved by Zofran Ondansetron HCl 4 mg 04/02/20 16:22 04/02/20 17:24 Ondansetron 4 Mg/2 Ml Vial IVP 04/03/20 16:22 4 mg ONCE PRN Administration N/V ([facility]) Ondansetron HCl 4 mg 04/02/20 16:58 04/03/20 05:46 Ondansetron 4 Mg/2 Ml Vial IVP 4 mg Q6HR PRN Administration Nausea / Vomiting Sodium Chloride 10 ml 04/02/20 17:00 04/03/20 05:06 Sodium Chloride Flush 0.9% 10 Ml Syringe IVP Not Given 0100,0900,1700 [facility] - Physical Exam Wound/Incisions: positive: Dressing dry and intact Skin: positive: Color nml, Warm Neurologic/Psychiatric: positive: Oriented x3, Motor nml (Capillary refill within normal limits) ABX Reporting Has patient been on IV antibiotics over the past 48 hours?: Yes Impression/Plan - Problem List Problem List: Patient is a 29-year-old female admitted to the hospitalist service with surgical consult for septic knee that was arthroscopically washed out by Dr. John Roman on 04/02/2020. Patient is receiving IV vancomycin. Patient had no complaints this morning denies fevers chills or any drainage from surgical incision. Dressing clean and dry. Patient's assessment is septic knee. Patient plan: 1) IV antibiotics for 48 hours with PICC line insertion and outpatient thereafter 2) tight glycemic control preferably between 100-140 POC glucose
[2020-04-03] MEDS: INSULIN ASPART 300 UNIT/3 ML PEN SUBQ SCH ×6 (08:11→20:51)
[2020-04-03] MEDS ORDERED: cefTRIAXone 2 GM in SODIUM CHLORIDE 0.9% MINIBAG 100 ML IV SCH (09:00)
[2020-04-03] MEDS ORDERED: cefTRIAXone 1 GM in SODIUM CHLORIDE 0.9% MINIBAG 100 ML IV SCH (09:00)
[2020-04-03] MEDS ORDERED: THIAMINE 100 MG TABLET PO SCH (09:00)
[2020-04-03] MEDS ORDERED: MULTIVITAMIN 10 ML, THIAMINE INJ 100 MG, FOLIC ACID INJ 1 MG in SODIUM CHLORIDE 0.9% 1,... IV SCH (09:00)
[2020-04-03] MEDS: ASPIRIN EC 81 MG TABLET PO SCH ×2 (09:45→20:48)
[2020-04-03 10:11] LABS: HEMOGLOBIN A1c% 11.7 % (4.27-6.07)
--- NOTE | 2020-04-03 11:19 | PHARMACY PROGRESS NOTE ---
- Therapy Status Vancomycin regimen day #: 2 (started 04/02 @1530) Therapy status: Awaiting steady state Basis for treatment: Empirical Treatment indication: Septic Joint Trough goal: 15-20 Concurrent antibiotics: Ceftriaxone 2 g - CHANDLER Risk Risk level for Acute Kidney Injury: Low Acute Kidney Injury risk factors: Duration >7 days, Goal trough >15, Diabetes - Monitoring and Recommendation Clinical response to treatment: I&O Previous 24 hours 04/01/20 04/02/20 04/03/20 23:59 23:59 23:59 Intake Total 1900 2153 Output Total 900 Balance 1000 2153 Lab Results 04/03/20 04/02/20 04/02/20 05:35 12:40 12:40 ESR 45 H BUN 15 9 Creatinine 0.5 0.5 Estimated GFR (MDRD) 147 147 Cultures 04/02/20 12:54 Synovial Fluid Body Fluid Culture - Preliminary Monitoring plan: Daily serum creatinine (Loading dose of 2 g (20 mg/kg) given 04/02 @1500, then 1.5g q12h started 04/03@0420. Continue this dose, check level prior to 5th dose 04/04@1600)
--- NOTE | 2020-04-03 11:21 | ANESTHESIA PROCEDURE NOTE ---
Anesth Central Line Template - Central Line Central Line Preparation: Consent Obtained, Time out completed, Ultrasound used, Sterile prep and drape Central line location: Right Basilic Central line type: PICC Single Lumen Central line catheter tip site resides: Atrium, right Central line aftercare: Secured, Placement confirmed, No pneumothorax, No complications, Bundle checklist complete, Pt tolerated well
[2020-04-03] MEDS ORDERED: SODIUM CHLORIDE FLUSH 0.9% 10 ML SYRINGE IVP PRN ×2 (11:22)
--- NOTE | 2020-04-03 11:47 | XRAY Report ---
PROCEDURE: Chest for Line Placement INDICATIONS: confirm PICC placement, right basilic michelle TECHNIQUE: One view of the chest was acquired. COMPARISON: None. FINDINGS: Surgical changes and devices: There is a right upper extremity PICC line with the tip extending into the right atrium approximately 3 cm inferior to the cavoatrial junction. Lungs and pleura: No pleural effusions or pneumothorax. There is prominence of the bony vessels sug gestive of mild pulmonary edema. Mediastinum: Mediastinal contours appear normal. Heart size is normal. Bones and chest wall: No suspicious bony lesions. Overlying soft tissues appear unremarkable. IMPRESSION: 1. PICC line tip projects over the right atrium. Consider withdrawal by approximately 3 cm. 2. Pulmonary vascular prominence suggestive of mild edema. Reviewed by: Shlomo Hunter MD on 04/03/2020 11:46 AM PST Approved by: Shlomo Hunter MD on 04/03/2020 11:46 AM [facility] Station ID: [id number]
[2020-04-03] MEDS: polyethylene glycoL 3350 17 GM PACKET PO SCH (13:05)
[2020-04-03] MEDS: DOCUSATE SODIUM 250 MG CAPSULE PO SCH (13:06)
[2020-04-03] MEDS: SENNA 8.6 MG TABLET PO SCH (13:06)
[2020-04-03] MEDS: METOCLOPRAMIDE 10 MG/2 ML VIAL IVP PRN (15:58)
[2020-04-03] MEDS: VANCOMYCIN INJ 1.5 GM in SODIUM CHLORIDE 0.9% 500 ML IV SCH (16:47)
--- NOTE | 2020-04-03 17:34 | PROVIDER PROGRESS NOTE ---
Assessment/Plan - Problem List (1) Septic arthritis Qualifiers: Septic arthritis location: knee Septic arthritis organism: due to unspecified organism Laterality: left Qualified Code(s): M00.9 - Pyogenic arthritis, unspecified Assessment/Plan: She underwent knee washing by Orthopedics in the OR yesterday, before coming to her hospital bed. She is on empiric IV antibiotics. We are awaiting cultures from the knee fluid in order to focus her antibiotic treatment. Orthopedics has recommended a PICC line placement and it was done today. Orthopedics states she will need 4 to 6 weeks of IV antibiotics. Continue with narcotics for pain control as needed. (2) DM hyperosmolarity type II, uncontrolled Assessment/Plan: Leukosis are elevated, this is not surprising with her significant infection. Will increase her sliding scale insulin coverage, continue carb controlled diet (3) Hyponatremia Assessment/Plan: This may be pseudohyponatremia because of the very high serum glucose. Follow BMP daily. Continue gentle hydration (4) Obesity (BMI 30-39.9) Assessment/Plan: As per hx. - Current Meds Current Meds: Current Medications Generic Name Dose Route Start Last Admin Trade Name Freq PRN Reason Stop Dose Admin Acetaminophen 650 - 975 mg 04/02/20 16:58 04/03/20 14:20 Acetaminophen 325 Mg Tablet PO 650 mg Q4HR PRN Administration PAIN Hydrocodone Bitart/Acetaminophen 1 tab 04/02/20 16:58 04/03/20 15:57 Hydrocod/Acetam 5/325 Mg Tablet PO 1 tab Q4HR PRN Administration PAIN Aspirin 81 mg 04/02/20 21:00 04/03/20 09:45 Aspirin Ec 81 Mg Tablet PO 81 mg BID NURYS Administration Docusate Sodium 250 - 500 mg 04/03/20 13:00 04/03/20 13:06 Docusate Sodium 250 Mg Capsule PO 250 mg DAILY NURYS Administration Vancomycin HCl 1.5 gm/ Sodium 500 mls @ 250 mls/hr 04/03/20 16:30 04/03/20 16:47 Chloride IV 250 mls/hr Q12H NURYS Administration Insulin Aspart 5 unit 04/03/20 12:00 04/03/20 17:01 Insulin Aspart 300 Unit/3 Ml Pen SUBQ 5 unit TIDWM NURYS Administration Insulin Aspart 2 - 10 unit 04/03/20 17:00 04/03/20 17:01 Insulin Aspart 300 Unit/3 Ml Pen SUBQ 8 unit 0800,1200,1700,2100 NURYS Administration Protocol Insulin Glargine 20 unit 04/02/20 21:00 04/02/20 22:07 Insulin Glargine 300 Unit/3 Ml Pen SUBQ 20 unit QPM NURYS Administration Ondansetron HCl 4 mg 04/02/20 16:58 04/03/20 14:19 Ondansetron 4 Mg/2 Ml Vial IVP 4 mg Q6HR PRN Administration Nausea / Vomiting Polyethylene Glycol 17 gm 04/03/20 13:00 04/03/20 13:05 Polyethylene Glycol 3350 17 Gm Packet PO 17 gm DAILY NURYS Administration Senna 8.6 - 17.2 mg 04/03/20 13:00 04/03/20 13:06 Senna 8.6 Mg Tablet PO 8.6 mg DAILY NURYS Administration Sodium Chloride 10 ml 04/02/20 17:00 04/03/20 17:02 Sodium Chloride Flush 0.9% 10 Ml Syringe IVP 10 ml 0100,0900,1700 NURYS Administration - Lab Result Fish Bone Diagrams: 04/03/20 05:35 04/03/20 05:35 - Additional Planning My Orders: My Active Orders 04/02/20 21:08 IO [RC] IOSHIFT 04/03/20 04:56 Benzocaine/Menthol [Cepacol] 1 lozenge MM Q2HR PRN 04/03/20 12:00 Insulin Aspart [NovoLOG] 5 unit SUBQ TIDWM 04/03/20 13:00 Docusate Sodium 250Mg Capsule [Colace 250Mg Capsule] 250 - 500 mg PO DAILY Senna [Senokot] 8.6 - 17.2 mg PO DAILY polyethylene glycoL 3350 [Miralax] 17 gm PO DAILY 04/03/20 17:00 Insulin Aspart [NovoLOG] 2 - 10 unit SUBQ 0800,1200,1700,2100 Subjective - Subjective Patient Reports: Feeling Better, Resting Comfortably Objective Vital Signs: Vital Signs - 24 hr 04/02/20 04/02/20 04/02/20 17:35 18:34 18:50 Temperature 37 C 37.0 C 37.0 C Heart Rate 87 Heart Rate [ 92 93 Brachial] Heart Rate [ Supine] Respiratory 16 20 20 Rate Blood Pressure 132/74 H Blood Pressure [Activity] Blood Pressure [Left Brachial artery] Blood Pressure 123/80 127/84 H [Right Brachial artery] Blood Pressure [Right Radial artery] Blood Pressure [Supine] O2 Saturation 99 99 97 04/02/20 04/02/20 04/02/20 19:30 20:00 21:00 Temperature 37.0 C 37.0 C 36.7 C Heart Rate Heart Rate [ 86 93 94 Brachial] Heart Rate [ Supine] Respiratory 20 20 20 Rate Blood Pressure Blood Pressure [Activity] Blood Pressure [Left Brachial artery] Blood Pressure 128/84 H 126/77 128/91 H [Right Brachial artery] Blood Pressure [Right Radial artery] Blood Pressure [Supine] O2 Saturation 96 96 97 04/02/20 04/03/20 04/03/20 22:00 00:23 04:53 Temperature 36.8 C 36.5 C 36.5 C Heart Rate Heart Rate [ 95 80 89 Brachial] Heart Rate [ Supine] Respiratory 20 18 16 Rate Blood Pressure Blood Pressure [Activity] Blood Pressure [Left Brachial artery] Blood Pressure 130/79 120/85 H 118/77 [Right Brachial artery] Blood Pressure [Right Radial artery] Blood Pressure [Supine] O2 Saturation 96 98 99 04/03/20 04/03/20 04/03/20 08:00 11:30 11:54 Temperature 36.7 C Heart Rate Heart Rate [ 95 Brachial] Heart Rate [ 98 98 Supine] Respiratory 18 Rate Blood Pressure Blood Pressure 125/86 H 125/86 H [Activity] Blood Pressure [Left Brachial artery] Blood Pressure 124/80 [Right Brachial artery] Blood Pressure [Right Radial artery] Blood Pressure 124/89 H 124/89 H [Supine] O2 Saturation 98 04/03/20 04/03/20 12:00 16:00 Temperature 36.6 C 36.6 C Heart Rate Heart Rate [ 102 H 83 Brachial] Heart Rate [ Supine] Respiratory 18 20 Rate Blood Pressure Blood Pressure [Activity] Blood Pressure 109/66 [Left Brachial artery] Blood Pressure [Right Brachial artery] Blood Pressure 124/89 H [Right Radial artery] Blood Pressure [Supine] O2 Saturation 97 97 Oxygen O2 Source Room air I&O (Last 24 Hrs): Intake and Output Totals x24h 04/01/20 04/02/20 04/03/20 23:59 23:59 23:59 Intake Total 1900 2513 Output Total 900 Balance 1000 2513 General: Other (Lethargic, awakens but falls asleep easily) HEENT: Mucous membr. moist/pink Neck: Supple Neuro: Alert, Non Focal Cardiovascular: Regular rate Respiratory: No respiratory distress Abdomen: Soft Extremities: Other (The left knee is LARRY-bandaged down to the ankle) - Results Results: Laboratory Results WBC 15.5 x10^3/uL (4.8-10.8) H 04/03/20 05:35 RBC 4.25 10^6/uL (4.20-5.40) 04/03/20 05:35 Hgb 13.1 g/dL (12.0-16.0) 04/03/20 05:35 Hct 40.6 % (37.0-47.0) 04/03/20 05:35 MCV 95.5 fL (81.0-99.0) 04/03/20 05:35 MCH 30.8 pg (27.0-31.0) 04/03/20 05:35 MCHC 32.3 g/dL (32.0-36.0) 04/03/20 05:35 RDW 11.6 % (12.0-15.0) L 04/03/20 05:35 Plt Count 295 10^3/uL (130-450) 04/03/20 05:35 MPV 9.9 fL (7.9-10.8) 04/03/20 05:35 Neut # (Auto) 13.3 10^3/uL (1.5-6.6) H 04/03/20 05:35 Lymph # (Auto) 1.8 10^3/uL (1.5-3.5) 04/03/20 05:35 [place] # (Auto) 0.4 10^3/uL (0.0-1.0) 04/03/20 05:35 Eos # (Auto) 0.0 10^3/uL (0.0-0.7) 04/03/20 05:35 Baso # (Auto) 0.0 10^3/uL (0.0-0.1) 04/03/20 05:35 Absolute Nucleated RBC 0.00 x10^3/uL 04/03/20 05:35 Nucleated RBC % 0.0 /100WBC 04/03/20 05:35 ESR 45 mm/Hr (0-20) H 04/02/20 12:40 Sodium 132 mmol/L (135-145) L 04/03/20 05:35 Potassium 3.7 mmol/L (3.5-5.0) 04/03/20 05:35 Chloride 100 mmol/L (101-111) L 04/03/20 05:35 Carbon Dioxide 21 mmol/L (21-32) 04/03/20 05:35 Anion Gap 11.0 (6-13) 04/03/20 05:35 BUN 15 mg/dL (6-20) 04/03/20 05:35 Creatinine 0.5 mg/dL (0.4-1.0) 04/03/20 05:35 Estimated GFR (MDRD) 147 (>89) 04/03/20 05:35 Glucose 307 mg/dL (70-100) H 04/03/20 05:35 POC Whole Bld Glucose 289 mg/dL (70 - 100) H 04/03/20 16:46 Estimat Average Glucose 289 mg/dL (70-100) H 04/03/20 05:35 Hemoglobin A1c % 11.7 % (4.27-6.07) H 04/03/20 05:35 Calcium 8.7 mg/dL (8.5-10.3) 04/03/20 05:35 Total Bilirubin 1.1 mg/dL (0.2-1.0) H 04/03/20 05:35 AST 23 IU/L (10-42) 04/03/20 05:35 ALT 37 IU/L (10-60) 04/03/20 05:35 Alkaline Phosphatase 139 IU/L (42-121) H 04/03/20 05:35 C-Reactive Protein 7.4 mg/dL (0-1.0) H 04/02/20 12:40 Total Protein 6.9 g/dL (6.7-8.2) 04/03/20 05:35 Albumin 3.2 g/dL (3.2-5.5) 04/03/20 05:35 Globulin 3.7 g/dL (2.1-4.2) 04/03/20 05:35 Albumin/Globulin Ratio 0.9 (1.0-2.2) L 04/03/20 05:35 Lipase 32 U/L (22-51) 04/02/20 12:40 Serum HCG, Qual NEGATIVE 04/02/20 12:40 Fluid Source KNEE 04/02/20 12:54 Fluid Color PINK 04/02/20 12:54 Fluid Clarity CLOUDY 04/02/20 12:54 Fluid WBC 02587 /mm^3 04/02/20 12:54 Fluid RBC 75213 /mm^3 04/02/20 12:54 Fluid Neutrophils % 79 % 04/02/20 12:54 Fluid Lymphocytes % 13 % 04/02/20 12:54 Fluid Monocytes % 8 % 04/02/20 12:54 Fld Mesothelial Cell % Not Reportable 04/02/20 12:54 Fluid Crystals NONE SEEN 04/02/20 12:54 Nasal Adenovirus (PCR) NOT DETECTED 04/02/20 14:42 Nasal B. parapertussis DNA (PCR) NOT DETECTED 04/02/20 14:42 Nasal Coronavir 229E PCR NOT DETECTED 04/02/20 14:42 Nasal Coronavir HKU1 PCR NOT DETECTED 04/02/20 14:42 Nasal Coronavir NL63 PCR NOT DETECTED 04/02/20 14:42 Nasal Coronavir OC43 PCR NOT DETECTED 04/02/20 14:42 Nasal Enterovir/Rhinovir PCR NOT DETECTED 04/02/20 14:42 Nasal Influenza B PCR NOT DETECTED 04/02/20 14:42 Nasal Influenza A PCR NOT DETECTED 04/02/20 14:42 Nasal Parainfluen 1 PCR NOT DETECTED 04/02/20 14:42 Nasal Parainfluen 2 PCR NOT DETECTED 04/02/20 14:42 Nasal Parainfluen 3 PCR NOT DETECTED 04/02/20 14:42 Nasal Parainfluen 4 PCR NOT DETECTED 04/02/20 14:42 Nasal RSV (PCR) NOT DETECTED 04/02/20 14:42 Nasal B.pertussis DNA PCR NOT DETECTED 04/02/20 14:42 Nasal C.pneumoniae (PCR) NOT DETECTED 04/02/20 14:42 Da Human Metapneumo PCR NOT DETECTED 04/02/20 14:42 Nasal M.pneumoniae (PCR) NOT DETECTED 04/02/20 14:42 Nasal SARS-CoV-2 (PCR) NOT DETECTED 04/02/20 14:42 Serum Ketones NEGATIVE (NEGATIVE) 04/02/20 12:40
[2020-04-03] MEDS: INSULIN GLARGINE 300 UNIT/3 ML PEN SUBQ SCH (20:51)
[2020-04-04] MEDS: SODIUM CHLORIDE FLUSH 0.9% 10 ML SYRINGE IVP SCH ×5 (00:01→23:58)
[2020-04-04] MEDS: HYDROcod/ACETAM 5/325 MG TABLET PO PRN ×5 (00:01→22:58)
[2020-04-04] MEDS: VANCOMYCIN INJ 1.5 GM in SODIUM CHLORIDE 0.9% 500 ML IV SCH ×3 (04:56→23:56)
[2020-04-04] MEDS: ACETAMINOPHEN 325 MG TABLET PO PRN (06:42)
[2020-04-04] MEDS: ONDANSETRON 4 MG/2 ML VIAL IVP PRN (08:21)
[2020-04-04] MEDS: INSULIN ASPART 300 UNIT/3 ML PEN SUBQ SCH ×5 (08:30→21:45)
[2020-04-04] MEDS ORDERED: MORPHINE 2 MG/ML CARPUJECT IVP PRN ×3 (08:53→19:03)
[2020-04-04] MEDS ORDERED: INSULIN GLARGINE 300 UNIT/3 ML PEN SUBQ SCH (09:00)
[2020-04-04 09:20] LABS: BASOPHILS % (AUTO) 0.4 %; EOSINOPHILS % (AUTO) 0.4 %; HGB - HEMOGLOBIN 12.8 g/dL (12.0-16.0); LYMPHOCYTES % (AUTO) 38.4 %; MEAN CORPUSCULAR HEMOGLOBIN 31.4 pg (27.0-31.0); MEAN CORPUSCULAR VOLUME 95.1 fL (81.0-99.0); MEAN PLATELET VOLUME 9.6 fL (7.9-10.8); MONOCYTES % (AUTO) 5.6 %; NEUTROPHILS % (AUTO) 54.8 %; PLT - PLATELET COUNT 297 10^3/uL (130-450); RED BLOOD COUNT 4.08 10^6/uL (4.20-5.40); RED CELL DISTRIBUTION WIDTH 12.1 % (12.0-15.0)
[2020-04-04 09:25] LABS: ABNORMAL LYMPHS % (MANUAL) 0 %; BAND NEUTROPHILS % (MANUAL) 0 %
[2020-04-04 09:44] LABS: ALBUMIN 2.9 g/dL (3.2-5.5); ALBUMIN/GLOBULIN RATIO 0.9 (1.0-2.2); BILIRUBIN,TOTAL 0.5 mg/dL (0.2-1.0); CALCIUM 8.5 mg/dL (8.5-10.3); CREATININE 0.4 mg/dL (0.4-1.0); TOTAL PROTEIN 6.3 g/dL (6.7-8.2)
[2020-04-04] MEDS: SENNA 8.6 MG TABLET PO SCH (10:07)
[2020-04-04] MEDS: ASPIRIN EC 81 MG TABLET PO SCH (10:07)
[2020-04-04] MEDS: DOCUSATE SODIUM 250 MG CAPSULE PO SCH (10:07)
[2020-04-04] MEDS: cefTRIAXone 2 GM in SODIUM CHLORIDE 0.9% MINIBAG 100 ML IV SCH (10:07)
[2020-04-04] MEDS: polyethylene glycoL 3350 17 GM PACKET PO SCH (10:09)
[2020-04-04 10:39] LABS: LYMPHOCYTES # (MANUAL) 4.5 10^3/uL (1.5-3.5); LYMPHOCYTES % (MANUAL) 32 %; MONOCYTES # (MANUAL) 0.3 10^3/uL (0.0-1.0); PLATELET ESTIMATE, MANUAL NORMAL (130-450,000) (NORMAL); PLATELET MORPHOLOGY NORMAL APPEARANCE (NORMAL); RBC MORPHOLOGY (MULTIPLE) NORMAL APPEARANCE (NORMAL)
[2020-04-04 10:40] LABS: DIFFERENTIAL COMMENT MANUAL DIFFERENTIAL
--- NOTE | 2020-04-04 11:45 | PROVIDER PROGRESS NOTE ---
Subjective - Prog Note Date Prog Note Date: 04/04/20 - Subjective Pt reports feeling: Worse Subjective: Patient report her left knee had more pain. Patient still had elevated WBC, elevated CRP and ESR, Slightly improved. Call orthopedic surgeon Dr. Zapien, He see this patient at this afternoon, and order pt for NPO at lunch. Current Medications - Current Medications Current Medications: Active Medications Acetaminophen (Acetaminophen 325 Mg Tablet) 650 - 975 mg PO Q4HR PRN PRN Reason: PAIN Last Admin: 04/04/20 06:42 Dose: 650 mg Documented by: Hydrocodone Bitart/Acetaminophen (Hydrocod/Acetam 5/325 Mg Tablet) 1 tab PO Q4HR PRN PRN Reason: PAIN Last Admin: 04/04/20 11:07 Dose: 1 tab Documented by: Aspirin (Aspirin Ec 81 Mg Tablet) 81 mg PO BID [facility] Last Admin: 04/04/20 10:07 Dose: 81 mg Documented by: Docusate Sodium (Docusate Sodium 100 Mg Capsule) 100 mg PO BID PRN PRN Reason: Constipation Docusate Sodium (Docusate Sodium 250 Mg Capsule) 250 - 500 mg PO DAILY [facility] Last Admin: 04/04/20 10:07 Dose: 250 mg Documented by: Acetaminophen (Ofirmev) 100 mls @ 400 mls/hr IV Q6HR PRN PRN Reason: PAIN Ceftriaxone Sodium 2 gm/ (Sodium Chloride) 100 mls @ 200 mls/hr IV DAILY [facility] Last Infusion: 04/04/20 10:40 Dose: Infused Documented by: Vancomycin HCl 1.5 gm/ Sodium (Chloride) 500 mls @ 250 mls/hr IV Q12H [facility] Last Infusion: 04/04/20 07:45 Dose: Infused Documented by: Sodium Chloride (Normal Saline 0.9%) 1,000 mls @ 100 mls/hr IV .Q10H [facility] Stop: 04/05/20 07:59 Insulin Aspart (Insulin Aspart 300 Unit/3 Ml Pen) 5 unit SUBQ TIDWM [facility] Last Admin: 04/04/20 08:30 Dose: 5 unit Documented by: Insulin Aspart (Insulin Aspart 300 Unit/3 Ml Pen) 2 - 10 unit SUBQ 0800,1200,1700,2100 [facility]; Protocol Last Admin: 04/04/20 08:31 Dose: 4 unit Documented by: Insulin Glargine (Insulin Glargine 300 Unit/3 Ml Pen) 20 unit SUBQ QPM [facility] Last Admin: 04/03/20 20:51 Dose: 20 unit Documented by: Insulin Glargine (Insulin Glargine 300 Unit/3 Ml Pen) 7 unit SUBQ QDBREAKFAST [facility] Last Admin: 04/04/20 10:10 Dose: 7 unit Documented by: Morphine Sulfate (Morphine 2 Mg/Ml Carpuject) 2 mg IVP Q2HR PRN PRN Reason: PAIN Ondansetron HCl (Ondansetron 4 Mg/2 Ml Vial) 4 mg IVP Q6HR PRN PRN Reason: Nausea / Vomiting Last Admin: 04/04/20 08:21 Dose: 4 mg Documented by: Polyethylene Glycol (Polyethylene Glycol 3350 17 Gm Packet) 17 gm PO DAILY [facility] Last Admin: 04/04/20 10:09 Dose: 17 gm Documented by: Prochlorperazine Edisylate (Prochlorperazine 10 Mg/2 Ml Vial) 10 mg IVP Q6HR PRN PRN Reason: Nausea / Vomiting Senna (Senna 8.6 Mg Tablet) 8.6 - 17.2 mg PO DAILY [facility] Last Admin: 04/04/20 10:07 Dose: 8.6 mg Documented by: Sodium Chloride (Sodium Chloride Flush 0.9% 10 Ml Syringe) 10 ml IVP 0100,0900,1700 [facility] Last Admin: 04/04/20 10:15 Dose: Not Given Documented by: Sodium Chloride (Sodium Chloride Flush 0.9% 10 Ml Syringe) 10 ml IVP PRN PRN PRN Reason: NEEDED PER PROVIDER ORDERS Sodium Chloride (Sodium Chloride Flush 0.9% 10 Ml Syringe) 10 ml IVP PRN PRN PRN Reason: NEEDED PER PROVIDER ORDERS Sodium Chloride (Sodium Chloride Flush 0.9% 10 Ml Syringe) 20 ml IVP PRN PRN PRN Reason: After TPN or Blood Draw Throat Lozenges (Benzocaine/Menthol Lozenge) 1 lozenge MM Q2HR PRN PRN Reason: Throat pain Insulin Glargine [Lantus Solostar] 10 - 20 units SUBQ DAILY 04/01/20 Sitagliptin Phos/Metformin HCl [Janumet 50-1,000 mg Tablet] 1 tab PO BID 04/01/20 Objective - Vital Signs/Intake & Output Vital Signs: Vital Signs x48h Temp Pulse Resp BP Pulse Ox 04/04/20 08:00 36.7 C 81 18 127/86 H 98 04/04/20 04:00 36.8 C 79 16 122/81 H 96 Intake & Output: Intake & Output 04/01/20 04/02/20 04/03/20 04/04/20 23:59 23:59 23:59 23:59 Intake Total 1900 3433 840 Output Total 900 Balance 1000 3433 840 - Objective General Appearance: positive: Alert, Mild distress. negative: Lethargic Eyes Bilateral: positive: Normal inspection, PERRL, No lid inflammation ENT: positive: ENT inspection nml, No signs of dehydration. negative: Purulent nasal drainage Neck: positive: Nml inspection, Thyroid nml, Trachea midline. negative: Thyromegaly, Tracheal deviation Respiratory: positive: Chest non-tender, No respiratory distress, Breath sounds nml. negative: Wheezes, Rales, Rhonchi Cardiovascular: positive: Regular rate & rhythm, No murmur. negative: Tachycardia, Bradycardia, Systolic murmur, Diastolic murmur - Lab Results Fish Bones: 04/04/20 09:06 04/04/20 09:06 Other Labs: Lab Results x24hrs 04/04/20 04/04/20 04/04/20 Range/Units 09:06 09:06 09:06 WBC 14.0 H (4.8-10.8) x10^3/uL RBC 4.08 L (4.20-5.40) 10^6/uL Hgb 12.8 (12.0-16.0) g/dL Hct 38.8 (37.0-47.0) % MCV 95.1 (81.0-99.0) fL MCH 31.4 H (27.0-31.0) pg MCHC 33.0 (32.0-36.0) g/dL RDW 12.1 (12.0-15.0) % Plt Count 297 (130-450) 10^3/uL MPV 9.6 (7.9-10.8) fL Neut # (Auto) Not Reportable Lymph # (Auto) Not Reportable [place] # (Auto) Not Reportable Eos # (Auto) Not Reportable Baso # (Auto) Not Reportable Absolute Nucleated RBC Not Reportable Total Counted 100 Band Neuts % (Manual) 0 (0 - 10) % Abnorm Lymph % (Manual) 0 % Nucleated RBC % Not Reportable Neutrophils # (Manual) 9.2 H (1.5-6.6) 10^3/uL Lymphocytes # (Manual) 4.5 H (1.5-3.5) 10^3/uL Monocytes # (Manual) 0.3 (0.0-1.0) 10^3/uL Eosinophils # (Manual) 0.0 (0-0.7) 10^3/uL Basophils # (Manual) 0.0 (0-0.1) 10^3/uL Differential Comment MANUAL DIFFERENTIAL WBC Morphology 1+ TOXIC GRANULATION (NORMAL) Platelet Estimate NORMAL (130-450,000) (NORMAL) Platelet Morphology NORMAL APPEARANCE (NORMAL) RBC Morph Micro Appear NORMAL APPEARANCE (NORMAL) ESR 38 H (0-20) mm/Hr Sodium 137 (135-145) mmol/L Potassium 3.5 (3.5-5.0) mmol/L Chloride 103 (101-111) mmol/L Carbon Dioxide 24 (21-32) mmol/L Anion Gap 10.0 (6-13) BUN 15 (6-20) mg/dL Creatinine 0.4 (0.4-1.0) mg/dL Estimated GFR (MDRD) 190 (>89) Glucose 217 H (70-100) mg/dL POC Whole Bld Glucose (70 - 100) mg/dL Calcium 8.5 (8.5-10.3) mg/dL Total Bilirubin 0.5 (0.2-1.0) mg/dL AST 40 (10-42) IU/L ALT 35 (10-60) IU/L Alkaline Phosphatase 114 (42-121) IU/L C-Reactive Protein (0-1.0) mg/dL Total Protein 6.3 L (6.7-8.2) g/dL Albumin 2.9 L (3.2-5.5) g/dL Globulin 3.4 (2.1-4.2) g/dL Albumin/Globulin Ratio 0.9 L (1.0-2.2) 04/04/20 04/04/20 04/03/20 Range/Units 09:06 07:34 20:35 WBC (4.8-10.8) x10^3/uL RBC (4.20-5.40) 10^6/uL Hgb (12.0-16.0) g/dL Hct (37.0-47.0) % MCV (81.0-99.0) fL MCH (27.0-31.0) pg MCHC (32.0-36.0) g/dL RDW (12.0-15.0) % Plt Count (130-450) 10^3/uL MPV (7.9-10.8) fL Neut # (Auto) Lymph # (Auto) [place] # (Auto) Eos # (Auto) Baso # (Auto) Absolute Nucleated RBC Total Counted Band Neuts % (Manual) (0 - 10) % Abnorm Lymph % (Manual) % Nucleated RBC % Neutrophils # (Manual) (1.5-6.6) 10^3/uL Lymphocytes # (Manual) (1.5-3.5) 10^3/uL Monocytes # (Manual) (0.0-1.0) 10^3/uL Eosinophils # (Manual) (0-0.7) 10^3/uL Basophils # (Manual) (0-0.1) 10^3/uL Differential Comment WBC Morphology (NORMAL) Platelet Estimate (NORMAL) Platelet Morphology (NORMAL) RBC Morph Micro Appear (NORMAL) ESR (0-20) mm/Hr Sodium (135-145) mmol/L Potassium (3.5-5.0) mmol/L Chloride (101-111) mmol/L Carbon Dioxide (21-32) mmol/L Anion Gap (6-13) BUN (6-20) mg/dL Creatinine (0.4-1.0) mg/dL Estimated GFR (MDRD) (>89) Glucose (70-100) mg/dL POC Whole Bld Glucose 190 H 249 H (70 - 100) mg/dL Calcium (8.5-10.3) mg/dL Total Bilirubin (0.2-1.0) mg/dL AST (10-42) IU/L ALT (10-60) IU/L Alkaline Phosphatase (42-121) IU/L C-Reactive Protein 5.3 H (0-1.0) mg/dL Total Protein (6.7-8.2) g/dL Albumin (3.2-5.5) g/dL Globulin (2.1-4.2) g/dL Albumin/Globulin Ratio (1.0-2.2) 04/03/20 04/03/20 Range/Units 16:46 11:43 WBC (4.8-10.8) x10^3/uL RBC (4.20-5.40) 10^6/uL Hgb (12.0-16.0) g/dL Hct (37.0-47.0) % MCV (81.0-99.0) fL MCH (27.0-31.0) pg MCHC (32.0-36.0) g/dL RDW (12.0-15.0) % Plt Count (130-450) 10^3/uL MPV (7.9-10.8) fL Neut # (Auto) Lymph # (Auto) [place] # (Auto) Eos # (Auto) Baso # (Auto) Absolute Nucleated RBC Total Counted Band Neuts % (Manual) (0 - 10) % Abnorm Lymph % (Manual) % Nucleated RBC % Neutrophils # (Manual) (1.5-6.6) 10^3/uL Lymphocytes # (Manual) (1.5-3.5) 10^3/uL Monocytes # (Manual) (0.0-1.0) 10^3/uL Eosinophils # (Manual) (0-0.7) 10^3/uL Basophils # (Manual) (0-0.1) 10^3/uL Differential Comment WBC Morphology (NORMAL) Platelet Estimate (NORMAL) Platelet Morphology (NORMAL) RBC Morph Micro Appear (NORMAL) ESR (0-20) mm/Hr Sodium (135-145) mmol/L Potassium (3.5-5.0) mmol/L Chloride (101-111) mmol/L Carbon Dioxide (21-32) mmol/L Anion Gap (6-13) BUN (6-20) mg/dL Creatinine (0.4-1.0) mg/dL Estimated GFR (MDRD) (>89) Glucose (70-100) mg/dL POC Whole Bld Glucose 289 H 312 H (70 - 100) mg/dL Calcium (8.5-10.3) mg/dL Total Bilirubin (0.2-1.0) mg/dL AST (10-42) IU/L ALT (10-60) IU/L Alkaline Phosphatase (42-121) IU/L C-Reactive Protein (0-1.0) mg/dL Total Protein (6.7-8.2) g/dL Albumin (3.2-5.5) g/dL Globulin (2.1-4.2) g/dL Albumin/Globulin Ratio (1.0-2.2) ABX Reporting Has patient been on IV antibiotics over the past 48 hours?: Yes Assessment/Plan - Problem List (1) Septic arthritis Impression: Patient reported she has more pain at her left knee. Patient still has elevated WBC, CRP and ESR. aspiration fluid from left knee culture is still pending. called surgeon Dr. Zapien, he would like to put the patient on n.p.o., he will see patient this afternoon, continue intravenous antibiotics, increase pain control, Continue PT and OT. (2) DM hyperosmolarity type II, uncontrolled Assessment/Plan: Patient has uncontrolled diabetic, her A1c 11.7. We will add morning Lantus, continue sliding scale (3) Obesity (BMI 30-39.9) Assessment/Plan: As per hx. Advised patient loss of her weight. Qualifiers: Septic arthritis location: knee Septic arthritis organism: due to unspecified organism Laterality: left Qualified Code(s): M00.9 - Pyogenic arthritis, unspecified
[2020-04-04] MEDS: SODIUM CHLORIDE 0.9% 1,000 ML IV SCH ×2 (12:50→22:35)
[2020-04-04] MEDS: INSULIN REGULAR HUMAN 300 UNIT/3 ML VIAL SUBQ SCH ×2 (13:03→18:47)
[2020-04-04] MEDS ORDERED: diphenhydrAMINE 25 MG CAPSULE PO PRN (14:01)
[2020-04-04] MEDS ORDERED: METOCLOPRAMIDE 10 MG/2 ML VIAL IVP PRN (14:03)
[2020-04-04] MEDS ORDERED: LIDOCAINE 2%-EPI 1:100000 20 ML MDV ONE (15:04)
[2020-04-04] MEDS ORDERED: BUPIVACAINE 0.5% PF 30 ML VIAL ONE (15:04)
--- NOTE | 2020-04-04 15:19 | CONSULTATION NOTE ---
DATE OF SERVICE: 04/04/2020 Physician: Abel Light MD REFERRING PHYSICIAN: FAIZAN Dan, of the hospitalist service. CHIEF COMPLAINT: "My left knee is hurting again." HISTORY OF PRESENT ILLNESS: Patient is a 29-year-old, overweight, , diabetic female patient that was admitted over the past weekend with a probable septic left knee. She was evaluated initial ly by the orthopedic service with Dr. John Roman. Aspiration of the left knee showed a gram-positi ve cocci present. She underwent arthroscopic washout of her left knee on the day of her admission. She has been on dual antibiotics postoperatively. Initially, the first day postoperatively, she appe ared to be improving clinically. By the second postoperative, today, she was noting increasing tight ness in her knee with more pain, and there was a concern that her infection was creating a recurrent knee effusion. We have been asked to reevaluate the knee and help with her management now that Dr. Jennie teague is no longer on this service. PHYSICAL EXAM GENERAL: Shows the patient is still afebrile with vitals signs which are stable. LEFT KNEE: It is still in its postoperative Jame wrap bandage. I can palpate that the knee is still somewhat swollen and it is quite tender diffusely on palpation. There is limited knee range of motio n secondary to pain as well. Neurovascularly, she appears to be intact with good voluntary motion of her toes. Sensation intact. Good capillary filling noted. IMAGING: Review of the aspiration that was done previously does show evidence of a rare gram-positiv e cocci seen on aspiration. Cultures, however, have been negative x2 days. ASSESSMENT: Recurrent left knee effusion following an arthroscopic washout for a left septic knee. She is now 2 days post-arthroscopic washout. PLAN: In view of the patient's worsening symptoms and recurrent effusion, I have elected to take her back to the operating room for another washout of her knee. I have discussed the rationale for this surgical procedure with the patient. She appears to understand and wishes to proceed as planned. R isks and benefits of the surgery were explained to her, including recurrent infection, bleeding, woun d healing problems, etc. She appears to understand these risks and wishes to proceed. All of her qu estions were answered. The leg was marked. Consent signed. TD: 04/04/2020 15:00
[2020-04-04 16:28] LABS: VANCOMYCIN,TROUGH 5.1 ug/mL (10.0-20.0)
--- NOTE | 2020-04-04 16:44 | PHARMACY PROGRESS NOTE ---
- Therapy Status Vancomycin regimen day #: 3 Therapy status: Trough subtherapeutic Basis for treatment: Empirical Treatment indication: Septic knee Trough goal: 15-20 Concurrent antibiotics: Ceftriaxone - CHANDLER Risk Risk level for Acute Kidney Injury: Low Acute Kidney Injury risk factors: Duration >7 days, Goal trough >15, Diabetes, Total daily Vancomycin >4 grams - Monitoring and Recommendation Clinical response to treatment: I&O Previous 24 hours 04/02/20 04/03/20 04/04/20 23:59 23:59 23:59 Intake Total 1900 3433 840 Output Total 900 Balance 1000 3433 840 Lab Results 04/04/20 04/04/20 04/03/20 09:06 09:06 05:35 ESR 38 H BUN 15 15 Creatinine 0.4 0.5 Estimated GFR (MDRD) 190 147 04/02/20 04/02/20 12:40 12:40 ESR 45 H BUN 9 Creatinine 0.5 Estimated GFR (MDRD) 147 Vancomycin Monitoring 04/04/20 15:53 Vancomycin Trough 5.1 L Cultures 04/02/20 14:49 Blood - Right Hand Blood Culture - Preliminary NO GROWTH AFTER 2 DAYS 04/02/20 14:38 Blood - Left Arm Blood Culture - Preliminary NO GROWTH AFTER 2 DAYS 04/02/20 12:54 Synovial Fluid Body Fluid Culture - Preliminary A/P: Trough before the 5th dose 5.1, renal function stable. All cultures are NGTD. Will continue to monitor cultures for possibility of narrowing or discontinuing antibiotics. Increase vancomycin from 1.5 g q12h to 1.5 g q8h, recheck level in 2 days (04/06) Monitoring plan: Daily serum creatinine (Loading dose of 2 g (20 mg/kg) given 04/02 @1500, then 1.5g q12h started 04/03@0420. Continue this dose, check level prior to 5th dose 04/04@1600)
[2020-04-04] MEDS ORDERED: fentaNYL 100 MCG/2 ML VIAL ONE (17:23)
[2020-04-04] MEDS ORDERED: MIDAZOLAM 2 MG/2 ML VIAL ONE (17:23)
[2020-04-04] MEDS ORDERED: LIDOCAINE-MPF 2% 5 ML VIAL ONE (17:23)
[2020-04-04] MEDS ORDERED: PROPOFOL 200 MG/20 ML VIAL IVP ONE (17:23)
[2020-04-04] MEDS ORDERED: BUPIVACAINE 0.5% PF 30 ML VIAL INFIL ONE ×2 (17:25)
[2020-04-04] MEDS ORDERED: LIDOCAINE 2%-EPI 1:100000 20 ML MDV SUBQ ONE ×2 (17:25)
--- NOTE | 2020-04-04 17:35 | ANESTHESIA ---
Pre-Anesthesia VS, & Labs - Diagnosis Left knee septic arthritis - Procedure Left knee arthroscopy Vital Signs: Temp Pulse Resp BP Pulse Ox 37.0 C 81 20 125/73 100 04/04/20 15:49 04/04/20 15:49 04/04/20 15:49 04/04/20 15:49 04/04/20 15:49 Height: 5 ft 2 in Weight (kg): 98 kg Body Mass Index: 39.5 BMI Classification: Obese - NPO >8 hours - Is Patient ?: No - Lab Results Current Lab Results: Laboratory Tests 04/04/20 16:51: POC Whole Bld Glucose 170 H 04/04/20 15:53: Last Dose Date Not Reportable, Last Dose Time Not Reportable, Vancomycin Trough 5.1 L 04/04/20 12:01: POC Whole Bld Glucose 267 H 04/04/20 09:06: ESR 38 H 04/04/20 09:06: Sodium 137, Potassium 3.5, Chloride 103, Carbon Dioxide 24, Anion Gap 10.0, BUN 15, Creatinine 0.4, Estimated GFR (MDRD) 190, Glucose 217 H, Calcium 8.5, Total Bilirubin 0.5, AST 40, ALT 35, Alkaline Phosphatase 114, Total Protein 6.3 L, Albumin 2.9 L, Globulin 3.4, Albumin/Globulin Ratio 0.9 L 04/04/20 09:06: WBC 14.0 H, RBC 4.08 L, Hgb 12.8, Hct 38.8, MCV 95.1, MCH 31.4 H , MCHC 33.0, RDW 12.1, Plt Count 297, MPV 9.6, Neut # (Auto) Not Reportable, Lymph # (Auto) Not Reportable, Mcculloch # (Auto) Not Reportable, Eos # (Auto) Not Reportable, Baso # (Auto) Not Reportable, Absolute Nucleated RBC Not Reportable, Total Counted 100, Band Neuts % (Manual) 0, Abnorm Lymph % (Manual) 0, Nucleated RBC % Not Reportable, Neutrophils # (Manual) 9.2 H, Lymphocytes # (Manual) 4.5 H , Monocytes # (Manual) 0.3, Eosinophils # (Manual) 0.0, Basophils # (Manual) 0.0, Differential Comment MANUAL DIFFERENTIAL, WBC Morphology 1+ TOXIC GRANULATION, Platelet Estimate NORMAL (130-450,000), Platelet Morphology NORMAL APPEARANCE, RBC Morph Micro Appear NORMAL APPEARANCE 04/04/20 09:06: C-Reactive Protein 5.3 H 04/04/20 07:34: POC Whole Bld Glucose 190 H 04/03/20 20:35: POC Whole Bld Glucose 249 H 04/03/20 16:46: POC Whole Bld Glucose 289 H 04/03/20 11:43: POC Whole Bld Glucose 312 H 04/03/20 07:45: POC Whole Bld Glucose 305 H 04/03/20 05:35: Sodium 132 L, Potassium 3.7, Chloride 100 L, Carbon Dioxide 21, Anion Gap 11.0, BUN 15, Creatinine 0.5, Estimated GFR (MDRD) 147, Glucose 307 H, Calcium 8.7, Total Bilirubin 1.1 H, AST 23, ALT 37, Alkaline Phosphatase 139 H, Total Protein 6.9, Albumin 3.2, Globulin 3.7, Albumin/Globulin Ratio 0.9 L 04/03/20 05:35: WBC 15.5 H, RBC 4.25, Hgb 13.1, Hct 40.6, MCV 95.5, MCH 30.8, MCHC 32.3, RDW 11.6 L, Plt Count 295, MPV 9.9, Neut # (Auto) 13.3 H, Lymph # (Auto) 1.8, Mcculloch # (Auto) 0.4, Eos # (Auto) 0.0, Baso # (Auto) 0.0, Absolute Nucleated RBC 0.00, Nucleated RBC % 0.0 04/03/20 05:35: Estimat Average Glucose 289 H, Hemoglobin A1c % 11.7 H 04/02/20 18:35: POC Whole Bld Glucose 333 H 04/02/20 13:29: POC Whole Bld Glucose 277 H 04/02/20 12:40: Estimat Average Glucose 286 H, Hemoglobin A1c % 11.6 H 04/02/20 12:40: Serum Ketones NEGATIVE 04/02/20 12:40: Serum HCG, Qual NEGATIVE 04/02/20 12:40: ESR 45 H 04/02/20 12:40: Sodium 133 L, Potassium 3.7, Chloride 98 L, Carbon Dioxide 23, Anion Gap 12.0, BUN 9, Creatinine 0.5, Estimated GFR (MDRD) 147, Glucose 352 H, Calcium 9.4, Total Bilirubin 0.5, AST 30, ALT 42, Alkaline Phosphatase 198 H, C- Reactive Protein 7.4 H, Total Protein 7.8, Albumin 3.6, Globulin 4.2, Albumin/Globulin Ratio 0.9 L, Lipase 32 04/02/20 12:40: WBC 13.4 H, RBC 4.49, Hgb 14.1, Hct 42.0, MCV 93.5, MCH 31.4 H, MCHC 33.6, RDW 11.7 L, Plt Count 309, MPV 9.6, Neut # (Auto) 9.0 H, Lymph # (Auto) 3.3, Mcculloch # (Auto) 0.7, Eos # (Auto) 0.4, Baso # (Auto) 0.1, Absolute Nucleated RBC 0.00, Nucleated RBC % 0.0 Fish Bones: 04/04/20 09:06 04/04/20 09:06 Home Medications and Allergies Active Medications Acetaminophen (Acetaminophen 325 Mg Tablet) 650 - 975 mg PO Q4HR PRN PRN Reason: PAIN Last Admin: 04/04/20 06:42 Dose: 650 mg Documented by: Hydrocodone Bitart/Acetaminophen (Hydrocod/Acetam 5/325 Mg Tablet) 1 tab PO Q4HR PRN PRN Reason: PAIN Last Admin: 04/04/20 16:14 Dose: 1 tab Documented by: Aspirin (Aspirin Ec 81 Mg Tablet) 81 mg PO BID [facility] Last Admin: 04/04/20 10:07 Dose: 81 mg Documented by: Diphenhydramine HCl (Diphenhydramine 25 Mg Capsule) 25 mg PO Q4HR PRN PRN Reason: Allergy Symptoms Last Admin: 04/04/20 14:27 Dose: 25 mg Documented by: Docusate Sodium (Docusate Sodium 100 Mg Capsule) 100 mg PO BID PRN PRN Reason: Constipation Docusate Sodium (Docusate Sodium 250 Mg Capsule) 250 - 500 mg PO DAILY [facility] Last Admin: 04/04/20 10:07 Dose: 250 mg Documented by: Acetaminophen (Ofirmev) 100 mls @ 400 mls/hr IV Q6HR PRN PRN Reason: PAIN Ceftriaxone Sodium 2 gm/ (Sodium Chloride) 100 mls @ 200 mls/hr IV DAILY [facility] Last Infusion: 04/04/20 10:40 Dose: Infused Documented by: Vancomycin HCl 1.5 gm/ Sodium (Chloride) 500 mls @ 250 mls/hr IV Q12H [facility] Last Admin: 04/04/20 16:59 Dose: 250 mls/hr Documented by: Sodium Chloride (Normal Saline 0.9%) 1,000 mls @ 100 mls/hr IV .Q10H [facility] Stop: 04/05/20 07:59 Last Infusion: 04/04/20 16:59 Dose: 0 mls/hr Documented by: Insulin Aspart (Insulin Aspart 300 Unit/3 Ml Pen) 5 unit SUBQ TIDWM [facility] Last Admin: 04/04/20 17:02 Dose: Not Given Documented by: Insulin Glargine (Insulin Glargine 300 Unit/3 Ml Pen) 20 unit SUBQ QPM [facility] Last Admin: 04/03/20 20:51 Dose: 20 unit Documented by: Insulin Glargine (Insulin Glargine 300 Unit/3 Ml Pen) 7 unit SUBQ QDBREAKFAST [facility] Last Admin: 04/04/20 10:10 Dose: 7 unit Documented by: Insulin Human Regular (Insulin Regular Human 300 Unit/3 Ml Vial) 3 - 11 unit SUBQ Q6HR [facility]; Protocol Last Admin: 04/04/20 13:03 Dose: 7 unit Documented by: Metoclopramide HCl (Metoclopramide 10 Mg/2 Ml Vial) 5 mg IVP Q6HR PRN PRN Reason: Nausea / Vomiting Morphine Sulfate (Morphine 2 Mg/Ml Carpuject) 2 mg IVP Q2HR PRN PRN Reason: PAIN Last Admin: 04/04/20 14:27 Dose: 2 mg Documented by: Ondansetron HCl (Ondansetron 4 Mg/2 Ml Vial) 4 mg IVP Q6HR PRN PRN Reason: Nausea / Vomiting Last Admin: 04/04/20 08:21 Dose: 4 mg Documented by: Polyethylene Glycol (Polyethylene Glycol 3350 17 Gm Packet) 17 gm PO DAILY [facility] Last Admin: 04/04/20 10:09 Dose: 17 gm Documented by: Prochlorperazine Edisylate (Prochlorperazine 10 Mg/2 Ml Vial) 10 mg IVP Q6HR PRN PRN Reason: Nausea / Vomiting Senna (Senna 8.6 Mg Tablet) 8.6 - 17.2 mg PO DAILY [facility] Last Admin: 04/04/20 10:07 Dose: 8.6 mg Documented by: Sodium Chloride (Sodium Chloride Flush 0.9% 10 Ml Syringe) 10 ml IVP 0100,0900,1700 [facility] Last Admin: 04/04/20 17:03 Dose: 10 ml Documented by: Sodium Chloride (Sodium Chloride Flush 0.9% 10 Ml Syringe) 10 ml IVP PRN PRN PRN Reason: NEEDED PER PROVIDER ORDERS Sodium Chloride (Sodium Chloride Flush 0.9% 10 Ml Syringe) 10 ml IVP PRN PRN PRN Reason: NEEDED PER PROVIDER ORDERS Sodium Chloride (Sodium Chloride Flush 0.9% 10 Ml Syringe) 20 ml IVP PRN PRN PRN Reason: After TPN or Blood Draw Throat Lozenges (Benzocaine/Menthol Lozenge) 1 lozenge MM Q2HR PRN PRN Reason: Throat pain Insulin Glargine [Lantus Solostar] 10 - 20 units SUBQ DAILY 04/01/20 Sitagliptin Phos/Metformin HCl [Janumet 50-1,000 mg Tablet] 1 tab PO BID 04/01/20 Allergies/Adverse Reactions: Allergies Allergy/AdvReac Type Severity Reaction Status Date / Time No Known Drug Allergies Allergy Verified 04/02/20 12:05 Anes History & Medical History - Anesthetic History Anesthesia Complications: reports: No previous complications - Medical History Cardiovascular: reports: None Pulmonary: reports: None Gastrointestinal: reports: None Urinary: reports: None Neuro: reports: None Musculoskeletal: reports: Other Endocrine/Autoimmune: reports: Type 2 diabetes Blood Disorders: reports: None Skin: reports: Other (Hydradenitis suppurativa) Smoking Status: Never smoker Psychosocial: reports: Cannabis History of Cancer?: No - Surgical History Gynecologic: section Orthopedic: Arthroscopic surgery, Other Other Past Surgical History: Reconstructive surgery to the left ankle ligament. Pilonidal cyst removal. Tonsillectomy and adenoidectomy Exam General: Alert, Oriented x3, Cooperative, No acute distress Dental: WNL Mouth Openin Fingerbreadth Neck Mobility: Normal Mallampati classification: II Mental/Cognitive Status: Alert/Oriented X3, Normal for patient Plan Anesthesia Type: General Consent for Procedure(s) Verified and Reviewed: Yes Code Status: Attempt Resuscitation ASA classification: 2-Mild systemic disease Is this case an emergency?: Yes
[2020-04-04] MEDS ORDERED: VANCOMYCIN INJ 1.5 GM in SODIUM CHLORIDE 0.9% 500 ML IV SCH (17:41)
[2020-04-04] MEDS ORDERED: ONDANSETRON 4 MG/2 ML VIAL ONE (18:27)
[2020-04-04] MEDS ORDERED: HYDROmorphone 1 MG/ML CARPUJECT ONE (18:52)
--- NOTE | 2020-04-04 18:54 | OPERATIVE REPORT ---
Operative Report - General Admit Date: 04/02/20 Procedure Date: 04/04/20 Planned Procedure: Arthroscopic Irrigation and Debridement of left knee Pre-Op Diagnosis: Septic left knee Procedure Performed: Arthroscopic irrigation and debridement of left knee Post Op Diagnosis: Same - Procedure Note Primary Surgeon: Cherie Light MD Anesthesia Provider: Kevin Dixon CRNA Anesthesia Technique: General LMA IV Fluids (mL): 800 Estimated Blood Loss (mL): 100 Complications: None
[2020-04-04] MEDS ORDERED: DOCUSATE SODIUM 100 MG CAPSULE PO PRN (18:55)
[2020-04-04] MEDS ORDERED: SODIUM CHLORIDE FLUSH 0.9% 10 ML SYRINGE IVP PRN (18:55)
[2020-04-04] MEDS ORDERED: ONDANSETRON 4 MG/2 ML VIAL IVP PRN ×2 (18:55→19:03)
[2020-04-04] MEDS ORDERED: NALOXONE 0.4 MG/ML VIAL IVP PRN (19:03)
[2020-04-04] MEDS ORDERED: fentaNYL 100 MCG/2 ML VIAL IVP PRN (19:03)
[2020-04-04] MEDS ORDERED: ATROPINE ABBOJECT 1 MG/10 ML SYRINGE IVP PRN (19:03)
[2020-04-04] MEDS ORDERED: HYDROmorphone 0.5 MG/0.5 ML SYRINGE IVP PRN (19:03)
[2020-04-04] MEDS ORDERED: LORazepam 2 MG/ML VIAL IVP PRN (19:04)
[2020-04-04] MEDS ORDERED: LACTATED RINGERS 800 ML IV ONE (19:18)
--- NOTE | 2020-04-04 19:24 | OPERATIVE REPORT ---
DATE OF SERVICE: 04/04/2020 Physician: Abel Light MD PREOPERATIVE DIAGNOSIS: Septic left knee. POSTOPERATIVE DIAGNOSIS: Septic left knee. PROCEDURE PERFORMED: Arthroscopic irrigation and debridement of the left knee. SURGEON: Abel Light MD ANESTHESIA: General. DESCRIPTION OF PROCEDURE: The patient was taken to the operating room on the afternoon of 04/04/2020 where she was placed under general anesthetic in the supine position without any complications. We then prepped and draped the leg free in the usual fashion for our procedure. Through the anterolater al parapatellar incision, we inserted the inflow catheter and arthroscope into the knee. Through a l ateral superior parapatellar incision, we inserted the outflow portal. Through these 2 portals, we w ere able to flush the knee out with a total of 8500 mL of irrigation solution to wash out the knee. We also inspected the knee and found the anterior cruciate ligament intact. The menisci were intact. There was some generalized hyperemic mildly hypertrophic synovitis noted in multiple compartments o f the knee as well. At the end of the procedure, we then removed the portal catheters from her knee and closed the wound using interrupted simple stitches of 4-0 nylon suture. We then injected in the incisions, about 10 mL of 0.5% Marcaine with epinephrine. Into the knee, we injected a total of 25 m L of 0.5% Marcaine with epinephrine as well. We then dressed the wound with Xeroform gauze, 4 x 4's, ABD, and a 6-inch Jame wrap. It should be noted when we inserted our portal catheters in the knee at the start of the case, we bel cuated about 10 mL of yellowish clear fluid. Specimens were sent to microbiology for aerobic and gee erobic cultures and sensitivities. At the conclusion of our procedure, we took the patient to recovery room in satisfactory condition. ESTIMATED BLOOD LOSS: 100 mL REPLACEMENT: 800 mL of fluid. TOURNIQUET TIME: None. PLAN: The patient will be continued with IV antibiotics and will be mobilized as tolerated. Weight bear on this extremity. We will adjust the antibiotics as needed pending the results of our cultures . TD: 04/04/2020 19:05
--- NOTE | 2020-04-04 19:26 | ANESTHESIA POST OP EVALUATION ---
Anesthesia Post Eval - Post Anesthesia Eval Vitals: Last Vital Signs Temp 36.5 C 04/04/20 19:20 Pulse 76 04/04/20 19:20 Resp 21 04/04/20 19:20 BP 134/86 H 04/04/20 19:20 Pulse Ox 100 04/04/20 19:20 CV Function Including HR & BP: positive: Stable Pain Control: positive: Satisfactory Nausea & Vomiting: positive: Negative Mental Status: positive: Baseline Respiratory Status: Airway Patent Hydration Status: Satisfactory Anesthesia Complications: positive: None
[2020-04-04] MEDS ORDERED: LACTATED RINGERS 1,000 ML IV SCH (20:00)
[2020-04-04] MEDS ORDERED: INSULIN REGULAR HUMAN 300 UNIT/3 ML VIAL SUBQ SCH (21:00)
[2020-04-04] MEDS: INSULIN GLARGINE 300 UNIT/3 ML PEN SUBQ SCH (21:44)
[2020-04-05] MEDS: ACETAMINOPHEN 325 MG TABLET PO PRN ×2 (02:31→15:57)
[2020-04-05] MEDS: HYDROcod/ACETAM 5/325 MG TABLET PO PRN ×5 (02:56→23:38)
[2020-04-05 05:09] LABS: BASOPHILS % (AUTO) 0.3 %; EOSINOPHILS # (AUTO) 0.1 10^3/uL (0.0-0.7); EOSINOPHILS % (AUTO) 0.5 %; HGB - HEMOGLOBIN 12.2 g/dL (12.0-16.0); LYMPHOCYTES # (AUTO) 4.3 10^3/uL (1.5-3.5); LYMPHOCYTES % (AUTO) 33.4 %; MEAN CORPUSCULAR HEMOGLOBIN 30.9 pg (27.0-31.0); MEAN CORPUSCULAR HGB CONC 32.8 g/dL (32.0-36.0); MEAN CORPUSCULAR VOLUME 94.2 fL (81.0-99.0); MEAN PLATELET VOLUME 9.5 fL (7.9-10.8); MONOCYTES # (AUTO) 0.9 10^3/uL (0.0-1.0); MONOCYTES % (AUTO) 6.9 %; NEUTROPHILS # (AUTO) 7.5 10^3/uL (1.5-6.6); NEUTROPHILS % (AUTO) 58.5 %; PLT - PLATELET COUNT 287 10^3/uL (130-450); RED BLOOD COUNT 3.95 10^6/uL (4.20-5.40); RED CELL DISTRIBUTION WIDTH 11.9 % (12.0-15.0); WHITE BLOOD COUNT 12.8 x10^3/uL (4.8-10.8)
[2020-04-05 05:23] LABS: ALBUMIN 2.9 g/dL (3.2-5.5); ALBUMIN/GLOBULIN RATIO 0.8 (1.0-2.2); BILIRUBIN,TOTAL 0.5 mg/dL (0.2-1.0); CALCIUM 8.3 mg/dL (8.5-10.3); CREATININE 0.4 mg/dL (0.4-1.0); CRP - C-REACTIVE PROTEIN 6.1 mg/dL (0-1.0); TOTAL PROTEIN 6.6 g/dL (6.7-8.2)
[2020-04-05] MEDS ORDERED: POTASSIUM CHLORIDE 20 MEQ TABLET PO ONE (07:23)
[2020-04-05] MEDS: INSULIN ASPART 300 UNIT/3 ML PEN SUBQ SCH ×7 (07:57→21:42)
[2020-04-05] MEDS: ASPIRIN 325 MG TABLET PO SCH ×2 (07:57→16:56)
[2020-04-05] MEDS: INSULIN GLARGINE 300 UNIT/3 ML PEN SUBQ SCH (07:59)
[2020-04-05] MEDS: VANCOMYCIN INJ 1.5 GM in SODIUM CHLORIDE 0.9% 500 ML IV SCH (08:01)
[2020-04-05] MEDS: SENNA 8.6 MG TABLET PO SCH (10:07)
[2020-04-05] MEDS: SODIUM CHLORIDE FLUSH 0.9% 10 ML SYRINGE IVP SCH ×6 (10:07→23:41)
[2020-04-05] MEDS: polyethylene glycoL 3350 17 GM PACKET PO SCH (10:07)
[2020-04-05] MEDS: DOCUSATE SODIUM 250 MG CAPSULE PO SCH (10:15)
[2020-04-05] MEDS: cefTRIAXone 2 GM in SODIUM CHLORIDE 0.9% MINIBAG 100 ML IV SCH (10:15)
--- NOTE | 2020-04-05 11:46 | PROVIDER PROGRESS NOTE ---
Assessment/Plan - Problem List (1) Septic arthritis Qualifiers: Septic arthritis location: knee Septic arthritis organism: due to unspecified organism Laterality: left Qualified Code(s): M00.9 - Pyogenic arthritis, unspecified Assessment/Plan: 2/3 Patient report her left knee pain is improved. Patient denies fever. WBC is slightly decreased. Patient had IArthroscopic Irrigation and Debridement of left knee on yesterday. The culture and gram staining of Fluid from the procedure on yesterday is pending. Discussed the care plan with orthopedic surgeon, and pharmacy for medication care management, According to first Time aspiration fluids culture form left knee, we recommend pt has once IV Dalvance 1500mg medication, but this medication is required to be approved by out-pt provider, we consult with child protective services social worker and hopefully to get the approve Patient reported she has more pain at her left knee. Patient still has elevated WBC, CRP and ESR. aspiration fluid from left knee culture is still pending. called surgeon Dr. Zapien, he would like to put the patient on n.p.o., he will see patient this afternoon, continue intravenous antibiotics, increase pain control, Continue PT and OT. (2) DM hyperosmolarity type II, uncontrolled Assessment/Plan: 2/3 pt has A1c 11.7, uncontrolled DM2, we will consult diabetes education consult for pt, continue slide scale in hospital. Patient has uncontrolled diabetic, her A1c 11.7. We will add morning Lantus, continue sliding scale (3) Obesity (BMI 30-39.9) Assessment/Plan: As per hx. Advised patient loss of her weight. - Current Meds Current Meds: Current Medications Generic Name Dose Route Start Last Admin Trade Name Josueq PRN Reason Stop Dose Admin Acetaminophen 650 - 975 mg 04/04/20 18:55 04/05/20 02:31 Acetaminophen 325 Mg Tablet PO 650 mg Q4HR PRN Administration PAIN Hydrocodone Bitart/Acetaminophen 1 tab 04/04/20 18:55 04/05/20 07:52 Hydrocod/Acetam 5/325 Mg Tablet PO 1 tab Q4HR PRN Administration PAIN Aspirin 325 mg 04/05/20 08:00 04/05/20 07:57 Aspirin 325 Mg Tablet PO 325 mg BIDWM NURYS Administration Diphenhydramine HCl 25 mg 04/04/20 14:01 04/04/20 14:27 Diphenhydramine 25 Mg Capsule PO 25 mg Q4HR PRN Administration Allergy Symptoms Docusate Sodium 250 - 500 mg 04/03/20 13:00 04/05/20 10:15 Docusate Sodium 250 Mg Capsule PO 250 mg DAILY NURYS Administration Docusate Sodium 100 mg 04/04/20 18:55 04/05/20 07:57 Docusate Sodium 100 Mg Capsule PO 100 mg BID PRN Administration Constipation Ceftriaxone Sodium 2 gm/ 100 mls @ 200 mls/hr 04/03/20 10:26 04/05/20 10:15 Sodium Chloride IV 200 mls/hr DAILY NURYS Administration Vancomycin HCl 1.5 gm/ Sodium 500 mls @ 250 mls/hr 04/04/20 17:41 04/05/20 10:01 Chloride IV Infused 0000,0800,1600 [facility] Infusion Insulin Aspart 5 unit 04/03/20 12:00 04/05/20 07:57 Insulin Aspart 300 Unit/3 Ml Pen SUBQ 5 unit TIDWM NURYS Administration Insulin Aspart 2 - 10 unit 04/04/20 21:30 04/05/20 07:58 Insulin Aspart 300 Unit/3 Ml Pen SUBQ 2 unit 0800,1200,1700,2100 [facility] Administration Protocol Insulin Glargine 10 unit 04/05/20 08:00 04/05/20 07:59 Insulin Glargine 300 Unit/3 Ml Pen SUBQ 10 unit QDBREAKFAST NURYS Administration Metoclopramide HCl 5 mg 04/04/20 14:03 04/04/20 21:51 Metoclopramide 10 Mg/2 Ml Vial IVP 5 mg Q6HR PRN Administration Nausea / Vomiting Polyethylene Glycol 17 gm 04/03/20 13:00 04/05/20 10:07 Polyethylene Glycol 3350 17 Gm Packet PO Not Given DAILY NURYS Senna 8.6 - 17.2 mg 04/03/20 13:00 04/05/20 10:07 Senna 8.6 Mg Tablet PO Not Given DAILY NURYS Sodium Chloride 10 ml 04/02/20 17:00 04/05/20 10:07 Sodium Chloride Flush 0.9% 10 Ml Syringe IVP Not Given 0100,0900,1700 NURYS Sodium Chloride 10 ml 04/05/20 01:00 04/05/20 10:07 Sodium Chloride Flush 0.9% 10 Ml Syringe IVP Not Given 0100,0900,1700 NURYS - Lab Result Fish Bone Diagrams: 04/05/20 04:38 04/05/20 04:38 - Additional Planning My Orders: My Active Orders 04/04/20 14:01 diphenhydrAMINE [Benadryl] 25 mg PO Q4HR PRN 04/04/20 14:03 Metoclopramide Inj [Reglan Inj] 5 mg IVP Q6HR PRN 04/05/20 gas well pumper Consult [CONS] Routine 04/05/20 08:00 Insulin Glargine [Lantus Solostar] 10 unit SUBQ QDBREAKFAST 04/05/20 09:05 Diabetic Education [RC] ONCE 04/05/20 21:00 Insulin Glargine [Lantus Solostar] 20 unit SUBQ QPM 04/06/20 05:00 CBC - COMP BLD CT W/AUTO DIFF [HEME] DAILYLAB CMP [COMPREHENSIVE METABOLIC PANEL] [CHEM] DAILYLAB CRP - C-REACTIVE PROTEIN [CHEM] DAILYLAB ESR- ERYTHROCYTE SEDIMENT RATE [HEME] DAILYLAB 04/07/20 05:00 CBC - COMP BLD CT W/AUTO DIFF [HEME] DAILYLAB CMP [COMPREHENSIVE METABOLIC PANEL] [CHEM] DAILYLAB CRP - C-REACTIVE PROTEIN [CHEM] DAILYLAB ESR- ERYTHROCYTE SEDIMENT RATE [HEME] DAILYLAB 04/08/20 05:00 CBC - COMP BLD CT W/AUTO DIFF [HEME] DAILYLAB CMP [COMPREHENSIVE METABOLIC PANEL] [CHEM] DAILYLAB CRP - C-REACTIVE PROTEIN [CHEM] DAILYLAB ESR- ERYTHROCYTE SEDIMENT RATE [HEME] DAILYLAB 04/09/20 05:00 CBC - COMP BLD CT W/AUTO DIFF [HEME] DAILYLAB CMP [COMPREHENSIVE METABOLIC PANEL] [CHEM] DAILYLAB CRP - C-REACTIVE PROTEIN [CHEM] DAILYLAB ESR- ERYTHROCYTE SEDIMENT RATE [HEME] DAILYLAB 04/10/20 05:00 CBC - COMP BLD CT W/AUTO DIFF [HEME] DAILYLAB CMP [COMPREHENSIVE METABOLIC PANEL] [CHEM] DAILYLAB ESR- ERYTHROCYTE SEDIMENT RATE [HEME] DAILYLAB Subjective - Subjective Patient Reports: Feeling Better Objective Vital Signs: Vital Signs - 24 hr 04/04/20 04/04/20 04/04/20 12:00 15:49 18:53 Temperature 36.7 C 37.0 C 36.5 C Heart Rate 107 H Heart Rate [ 81 Brachial] Heart Rate [ 72 Radial] Respiratory 16 20 18 Rate Blood Pressure 143/100 H Blood Pressure 126/87 H 125/73 [Left Brachial artery] O2 Saturation 99 100 100 04/04/20 04/04/20 04/04/20 19:00 19:05 19:10 Temperature 36.5 C 36.5 C 36.5 C Heart Rate 77 77 78 Heart Rate [ Brachial] Heart Rate [ Radial] Respiratory 18 21 21 Rate Blood Pressure 136/88 H 124/94 H 126/84 H Blood Pressure [Left Brachial artery] O2 Saturation 100 100 100 04/04/20 04/04/20 04/04/20 19:15 19:20 19:39 Temperature 36.5 C 36.5 C Heart Rate 76 76 Heart Rate [ 86 Brachial] Heart Rate [ Radial] Respiratory 21 21 16 Rate Blood Pressure 135/89 H 134/86 H Blood Pressure 150/83 H [Left Brachial artery] O2 Saturation 100 100 93 04/04/20 04/04/20 04/04/20 20:09 20:39 21:39 Temperature 37.3 C 36.7 C 36.9 C Heart Rate Heart Rate [ 79 77 91 Brachial] Heart Rate [ Radial] Respiratory 16 14 24 Rate Blood Pressure Blood Pressure 128/79 130/79 106/58 L [Left Brachial artery] O2 Saturation 98 97 98 04/04/20 04/04/20 04/05/20 22:39 23:59 04:47 Temperature 36.9 C 36.5 C 37 C Heart Rate Heart Rate [ 93 82 Brachial] Heart Rate [ 91 Radial] Respiratory 20 20 16 Rate Blood Pressure Blood Pressure 110/58 L 115/71 110/72 [Left Brachial artery] O2 Saturation 94 98 98 04/05/20 08:00 Temperature 37 C Heart Rate Heart Rate [ 79 Brachial] Heart Rate [ Radial] Respiratory 18 Rate Blood Pressure Blood Pressure 132/86 H [Left Brachial artery] O2 Saturation 98 Oxygen O2 Source Room air I&O (Last 24 Hrs): Intake and Output Totals x24h 04/03/20 04/04/20 04/05/20 23:59 23:59 23:59 Intake Total 3433 2043.333 1120 Balance 3433 3.333 1120 General: Alert, Oriented x3, Cooperative, No acute distress HEENT: Atraumatic, PERRLA Neck: Supple Lymphatic: no adenopathy Neuro: Alert, Non Focal, Oriented Times 3 Cardiovascular: Regular rate, Normal S1, Normal S2 Respiratory: Chest non-tender, No respiratory distress, Breath sounds nml Abdomen: Normal bowel sounds, Soft, No tenderness Extremities: No edema, Normal pulses - Results Results: Laboratory Results WBC 12.8 x10^3/uL (4.8-10.8) H 04/05/20 04:38 RBC 3.95 10^6/uL (4.20-5.40) L 04/05/20 04:38 Hgb 12.2 g/dL (12.0-16.0) 04/05/20 04:38 Hct 37.2 % (37.0-47.0) 04/05/20 04:38 MCV 94.2 fL (81.0-99.0) 04/05/20 04:38 MCH 30.9 pg (27.0-31.0) 04/05/20 04:38 MCHC 32.8 g/dL (32.0-36.0) 04/05/20 04:38 RDW 11.9 % (12.0-15.0) L 04/05/20 04:38 Plt Count 287 10^3/uL (130-450) 04/05/20 04:38 MPV 9.5 fL (7.9-10.8) 04/05/20 04:38 Neut # (Auto) 7.5 10^3/uL (1.5-6.6) H 04/05/20 04:38 Lymph # (Auto) 4.3 10^3/uL (1.5-3.5) H 04/05/20 04:38 Sharp # (Auto) 0.9 10^3/uL (0.0-1.0) 04/05/20 04:38 Eos # (Auto) 0.1 10^3/uL (0.0-0.7) 04/05/20 04:38 Baso # (Auto) 0.0 10^3/uL (0.0-0.1) 04/05/20 04:38 Absolute Nucleated RBC 0.00 x10^3/uL 04/05/20 04:38 Total Counted 100 04/04/20 09:06 Band Neuts % (Manual) 0 % (0-10) 04/04/20 09:06 Abnorm Lymph % (Manual) 0 % 04/04/20 09:06 Nucleated RBC % 0.0 /100WBC 04/05/20 04:38 Neutrophils # (Manual) 9.2 10^3/uL (1.5-6.6) H 04/04/20 09:06 Lymphocytes # (Manual) 4.5 10^3/uL (1.5-3.5) H 04/04/20 09:06 Monocytes # (Manual) 0.3 10^3/uL (0.0-1.0) 04/04/20 09:06 Eosinophils # (Manual) 0.0 10^3/uL (0-0.7) 04/04/20 09:06 Basophils # (Manual) 0.0 10^3/uL (0-0.1) 04/04/20 09:06 Differential Comment MANUAL DIFFERENTIAL 04/04/20 09:06 WBC Morphology 1+ TOXIC GRANULATION (NORMAL) 04/04/20 09:06 Platelet Estimate NORMAL (130-450,000) (NORMAL) 04/04/20 09:06 Platelet Morphology NORMAL APPEARANCE (NORMAL) 04/04/20 09:06 RBC Morph Micro Appear NORMAL APPEARANCE (NORMAL) 04/04/20 09:06 ESR 45 mm/Hr (0-20) H 04/05/20 04:38 Sodium 133 mmol/L (135-145) L 04/05/20 04:38 Potassium 3.4 mmol/L (3.5-5.0) L 04/05/20 04:38 Chloride 99 mmol/L (101-111) L 04/05/20 04:38 Carbon Dioxide 25 mmol/L (21-32) 04/05/20 04:38 Anion Gap 9.0 (6-13) 04/05/20 04:38 BUN 7 mg/dL (6-20) 04/05/20 04:38 Creatinine 0.4 mg/dL (0.4-1.0) 04/05/20 04:38 Estimated GFR (MDRD) 190 (>89) 04/05/20 04:38 Glucose 232 mg/dL (70-100) H 04/05/20 04:38 POC Whole Bld Glucose 159 mg/dL (70 - 100) H 04/05/20 07:33 Estimat Average Glucose 289 mg/dL (70-100) H 04/03/20 05:35 Hemoglobin A1c % 11.7 % (4.27-6.07) H 04/03/20 05:35 Calcium 8.3 mg/dL (8.5-10.3) L 04/05/20 04:38 Total Bilirubin 0.5 mg/dL (0.2-1.0) 04/05/20 04:38 AST 33 IU/L (10-42) 04/05/20 04:38 ALT 36 IU/L (10-60) 04/05/20 04:38 Alkaline Phosphatase 100 IU/L (42-121) 04/05/20 04:38 C-Reactive Protein 6.1 mg/dL (0-1.0) H 04/05/20 04:38 Total Protein 6.6 g/dL (6.7-8.2) L 04/05/20 04:38 Albumin 2.9 g/dL (3.2-5.5) L 04/05/20 04:38 Globulin 3.7 g/dL (2.1-4.2) 04/05/20 04:38 Albumin/Globulin Ratio 0.8 (1.0-2.2) L 04/05/20 04:38 Lipase 32 U/L (22-51) 04/02/20 12:40 Serum HCG, Qual NEGATIVE 04/02/20 12:40 Fluid Source KNEE 04/02/20 12:54 Fluid Color PINK 04/02/20 12:54 Fluid Clarity CLOUDY 04/02/20 12:54 Fluid WBC 02621 /mm^3 04/02/20 12:54 Fluid RBC 85719 /mm^3 04/02/20 12:54 Fluid Neutrophils % 79 % 04/02/20 12:54 Fluid Lymphocytes % 13 % 04/02/20 12:54 Fluid Monocytes % 8 % 04/02/20 12:54 Fld Mesothelial Cell % Not Reportable 04/02/20 12:54 Fluid Crystals NONE SEEN 04/02/20 12:54 Nasal Adenovirus (PCR) NOT DETECTED 04/02/20 14:42 Nasal B. parapertussis DNA (PCR) NOT DETECTED 04/02/20 14:42 Nasal Coronavir 229E PCR NOT DETECTED 04/02/20 14:42 Nasal Coronavir HKU1 PCR NOT DETECTED 04/02/20 14:42 Nasal Coronavir NL63 PCR NOT DETECTED 04/02/20 14:42 Nasal Coronavir OC43 PCR NOT DETECTED 04/02/20 14:42 Nasal Enterovir/Rhinovir PCR NOT DETECTED 04/02/20 14:42 Nasal Influenza B PCR NOT DETECTED 04/02/20 14:42 Nasal Influenza A PCR NOT DETECTED 04/02/20 14:42 Nasal Parainfluen 1 PCR NOT DETECTED 04/02/20 14:42 Nasal Parainfluen 2 PCR NOT DETECTED 04/02/20 14:42 Nasal Parainfluen 3 PCR NOT DETECTED 04/02/20 14:42 Nasal Parainfluen 4 PCR NOT DETECTED 04/02/20 14:42 Nasal RSV (PCR) NOT DETECTED 04/02/20 14:42 Nasal B.pertussis DNA PCR NOT DETECTED 04/02/20 14:42 Nasal C.pneumoniae (PCR) NOT DETECTED 04/02/20 14:42 Da Human Metapneumo PCR NOT DETECTED 04/02/20 14:42 Nasal M.pneumoniae (PCR) NOT DETECTED 04/02/20 14:42 Nasal SARS-CoV-2 (PCR) NOT DETECTED 04/02/20 14:42 Last Dose Date Not Reportable 04/04/20 15:53 Last Dose Time Not Reportable 04/04/20 15:53 Vancomycin Trough 5.1 ug/mL (10.0-20.0) L 04/04/20 15:53 Serum Ketones NEGATIVE (NEGATIVE) 04/02/20 12:40 ABX Reporting Has patient been on IV antibiotics over the past 48 hours?: Yes Current Medications - Current Medications Current Medications: Active Medications Acetaminophen (Acetaminophen 325 Mg Tablet) 650 - 975 mg PO Q4HR PRN PRN Reason: PAIN Last Admin: 04/05/20 02:31 Dose: 650 mg Documented by: Hydrocodone Bitart/Acetaminophen (Hydrocod/Acetam 5/325 Mg Tablet) 1 tab PO Q4HR PRN PRN Reason: PAIN Last Admin: 04/05/20 07:52 Dose: 1 tab Documented by: Aspirin (Aspirin 325 Mg Tablet) 325 mg PO BIDWM NURYS Last Admin: 04/05/20 07:57 Dose: 325 mg Documented by: Diphenhydramine HCl (Diphenhydramine 25 Mg Capsule) 25 mg PO Q4HR PRN PRN Reason: Allergy Symptoms Last Admin: 04/04/20 14:27 Dose: 25 mg Documented by: Docusate Sodium (Docusate Sodium 250 Mg Capsule) 250 - 500 mg PO DAILY [facility] Last Admin: 04/05/20 10:15 Dose: 250 mg Documented by: Docusate Sodium (Docusate Sodium 100 Mg Capsule) 100 mg PO BID PRN PRN Reason: Constipation Last Admin: 04/05/20 07:57 Dose: 100 mg Documented by: Ceftriaxone Sodium 2 gm/ (Sodium Chloride) 100 mls @ 200 mls/hr IV DAILY [facility] Last Admin: 04/05/20 10:15 Dose: 200 mls/hr Documented by: Vancomycin HCl 1.5 gm/ Sodium (Chloride) 500 mls @ 250 mls/hr IV 0000,0800,1600 [facility] Last Infusion: 04/05/20 10:01 Dose: Infused Documented by: Insulin Aspart (Insulin Aspart 300 Unit/3 Ml Pen) 5 unit SUBQ TIDWM [facility] Last Admin: 04/05/20 07:57 Dose: 5 unit Documented by: Insulin Aspart (Insulin Aspart 300 Unit/3 Ml Pen) 2 - 10 unit SUBQ 0800,1200,1700,2100 [facility]; Protocol Last Admin: 04/05/20 07:58 Dose: 2 unit Documented by: Insulin Glargine (Insulin Glargine 300 Unit/3 Ml Pen) 10 unit SUBQ QDBREAKFAST [facility] Last Admin: 04/05/20 07:59 Dose: 10 unit Documented by: Insulin Glargine (Insulin Glargine 300 Unit/3 Ml Pen) 20 unit SUBQ QPM [facility] Lorazepam (Lorazepam 2 Mg/Ml Vial) 0.5 mg IVP PRN PRN PRN Reason: Anxiety Metoclopramide HCl (Metoclopramide 10 Mg/2 Ml Vial) 5 mg IVP Q6HR PRN PRN Reason: Nausea / Vomiting Last Admin: 04/04/20 21:51 Dose: 5 mg Documented by: Morphine Sulfate (Morphine 2 Mg/Ml Carpuject) 2 mg IVP Q2HR PRN PRN Reason: PAIN Ondansetron HCl (Ondansetron 4 Mg/2 Ml Vial) 4 mg IVP Q6HR PRN PRN Reason: Nausea / Vomiting Polyethylene Glycol (Polyethylene Glycol 3350 17 Gm Packet) 17 gm PO DAILY [facility] Last Admin: 04/05/20 10:07 Dose: Not Given Documented by: Prochlorperazine Edisylate (Prochlorperazine 10 Mg/2 Ml Vial) 10 mg IVP Q6HR PRN PRN Reason: Nausea / Vomiting Senna (Senna 8.6 Mg Tablet) 8.6 - 17.2 mg PO DAILY [facility] Last Admin: 04/05/20 10:07 Dose: Not Given Documented by: Sodium Chloride (Sodium Chloride Flush 0.9% 10 Ml Syringe) 10 ml IVP 0100,0900,1700 [facility] Last Admin: 04/05/20 10:07 Dose: Not Given Documented by: Sodium Chloride (Sodium Chloride Flush 0.9% 10 Ml Syringe) 10 ml IVP PRN PRN PRN Reason: NEEDED PER PROVIDER ORDERS Sodium Chloride (Sodium Chloride Flush 0.9% 10 Ml Syringe) 20 ml IVP PRN PRN PRN Reason: After TPN or Blood Draw Sodium Chloride (Sodium Chloride Flush 0.9% 10 Ml Syringe) 10 ml IVP 0100,0900,1700 [facility] Last Admin: 04/05/20 10:07 Dose: Not Given Documented by: Sodium Chloride (Sodium Chloride Flush 0.9% 10 Ml Syringe) 10 ml IVP PRN PRN PRN Reason: NEEDED PER PROVIDER ORDERS Throat Lozenges (Benzocaine/Menthol Lozenge) 1 lozenge MM Q2HR PRN PRN Reason: Throat pain Insulin Glargine [Lantus Solostar] 10 - 20 units SUBQ DAILY 04/01/20 Sitagliptin Phos/Metformin HCl [Janumet 50-1,000 mg Tablet] 1 tab PO BID 04/01/20
--- NOTE | 2020-04-05 14:41 | PROVIDER PROGRESS NOTE ---
Subjective - Prog Note Date Prog Note Date: 04/05/20 Prog Note Time: 14:39 - Subjective Pt reports feeling: Improved Objective - Vital Signs/Intake & Output Vital Signs: Vital Signs x48h Temp Pulse Pulse Resp BP Pulse Ox 04/05/20 13:33 36.9 C 87 16 121/74 98 04/05/20 08:00 37 C 79 18 132/86 H 98 Intake & Output: Intake & Output 04/02/20 04/03/20 04/04/20 04/05/20 23:59 23:59 23:59 23:59 Intake Total 1900 3433 2043.333 1700 Output Total 900 Balance 1000 3433 2043.333 1700 - Lab Results Fish Bones: 04/05/20 04:38 04/05/20 04:38 Other Labs: Lab Results x24hrs 04/05/20 04/05/20 04/05/20 Range/Units 11:47 07:33 04:38 WBC (4.8-10.8) x10^3/uL RBC (4.20-5.40) 10^6/uL Hgb (12.0-16.0) g/dL Hct (37.0-47.0) % MCV (81.0-99.0) fL MCH (27.0-31.0) pg MCHC (32.0-36.0) g/dL RDW (12.0-15.0) % Plt Count (130-450) 10^3/uL MPV (7.9-10.8) fL Neut # (Auto) (1.5-6.6) 10^3/uL Lymph # (Auto) (1.5-3.5) 10^3/uL Lares # (Auto) (0.0-1.0) 10^3/uL Eos # (Auto) (0.0-0.7) 10^3/uL Baso # (Auto) (0.0-0.1) 10^3/uL Absolute Nucleated RBC x10^3/uL Nucleated RBC % /100WBC ESR 45 H (0-20) mm/Hr Sodium (135-145) mmol/L Potassium (3.5-5.0) mmol/L Chloride (101-111) mmol/L Carbon Dioxide (21-32) mmol/L Anion Gap (6-13) BUN (6-20) mg/dL Creatinine (0.4-1.0) mg/dL Estimated GFR (MDRD) (>89) Glucose (70-100) mg/dL POC Whole Bld Glucose 197 H 159 H (70 - 100) mg/dL Calcium (8.5-10.3) mg/dL Total Bilirubin (0.2-1.0) mg/dL AST (10-42) IU/L ALT (10-60) IU/L Alkaline Phosphatase (42-121) IU/L C-Reactive Protein (0-1.0) mg/dL Total Protein (6.7-8.2) g/dL Albumin (3.2-5.5) g/dL Globulin (2.1-4.2) g/dL Albumin/Globulin Ratio (1.0-2.2) Last Dose Date Last Dose Time Vancomycin Trough (10.0-20.0) ug/mL 04/05/20 04/05/20 04/04/20 Range/Units 04:38 04:38 20:50 WBC 12.8 H (4.8-10.8) x10^3/uL RBC 3.95 L (4.20-5.40) 10^6/uL Hgb 12.2 (12.0-16.0) g/dL Hct 37.2 (37.0-47.0) % MCV 94.2 (81.0-99.0) fL MCH 30.9 (27.0-31.0) pg MCHC 32.8 (32.0-36.0) g/dL RDW 11.9 L (12.0-15.0) % Plt Count 287 (130-450) 10^3/uL MPV 9.5 (7.9-10.8) fL Neut # (Auto) 7.5 H (1.5-6.6) 10^3/uL Lymph # (Auto) 4.3 H (1.5-3.5) 10^3/uL Lares # (Auto) 0.9 (0.0-1.0) 10^3/uL Eos # (Auto) 0.1 (0.0-0.7) 10^3/uL Baso # (Auto) 0.0 (0.0-0.1) 10^3/uL Absolute Nucleated RBC 0.00 x10^3/uL Nucleated RBC % 0.0 /100WBC ESR (0-20) mm/Hr Sodium 133 L (135-145) mmol/L Potassium 3.4 L (3.5-5.0) mmol/L Chloride 99 L (101-111) mmol/L Carbon Dioxide 25 (21-32) mmol/L Anion Gap 9.0 (6-13) BUN 7 (6-20) mg/dL Creatinine 0.4 (0.4-1.0) mg/dL Estimated GFR (MDRD) 190 (>89) Glucose 232 H (70-100) mg/dL POC Whole Bld Glucose 215 H (70 - 100) mg/dL Calcium 8.3 L (8.5-10.3) mg/dL Total Bilirubin 0.5 (0.2-1.0) mg/dL AST 33 (10-42) IU/L ALT 36 (10-60) IU/L Alkaline Phosphatase 100 (42-121) IU/L C-Reactive Protein 6.1 H (0-1.0) mg/dL Total Protein 6.6 L (6.7-8.2) g/dL Albumin 2.9 L (3.2-5.5) g/dL Globulin 3.7 (2.1-4.2) g/dL Albumin/Globulin Ratio 0.8 L (1.0-2.2) Last Dose Date Last Dose Time Vancomycin Trough (10.0-20.0) ug/mL 04/04/20 04/04/20 04/04/20 Range/Units 17:33 16:51 15:53 WBC (4.8-10.8) x10^3/uL RBC (4.20-5.40) 10^6/uL Hgb (12.0-16.0) g/dL Hct (37.0-47.0) % MCV (81.0-99.0) fL MCH (27.0-31.0) pg MCHC (32.0-36.0) g/dL RDW (12.0-15.0) % Plt Count (130-450) 10^3/uL MPV (7.9-10.8) fL Neut # (Auto) (1.5-6.6) 10^3/uL Lymph # (Auto) (1.5-3.5) 10^3/uL Lares # (Auto) (0.0-1.0) 10^3/uL Eos # (Auto) (0.0-0.7) 10^3/uL Baso # (Auto) (0.0-0.1) 10^3/uL Absolute Nucleated RBC x10^3/uL Nucleated RBC % /100WBC ESR (0-20) mm/Hr Sodium (135-145) mmol/L Potassium (3.5-5.0) mmol/L Chloride (101-111) mmol/L Carbon Dioxide (21-32) mmol/L Anion Gap (6-13) BUN (6-20) mg/dL Creatinine (0.4-1.0) mg/dL Estimated GFR (MDRD) (>89) Glucose (70-100) mg/dL POC Whole Bld Glucose 151 H 170 H (70 - 100) mg/dL Calcium (8.5-10.3) mg/dL Total Bilirubin (0.2-1.0) mg/dL AST (10-42) IU/L ALT (10-60) IU/L Alkaline Phosphatase (42-121) IU/L C-Reactive Protein (0-1.0) mg/dL Total Protein (6.7-8.2) g/dL Albumin (3.2-5.5) g/dL Globulin (2.1-4.2) g/dL Albumin/Globulin Ratio (1.0-2.2) Last Dose Date Not Reportable Last Dose Time Not Reportable Vancomycin Trough 5.1 L (10.0-20.0) ug/mL - Other Results/Comments Other Results/Comments: Left knee: minimal effusion. Mildly tender. Better PROM of knee: 10-60 degr ees. N/V ok distally Assessment/Plan - Problem List (1) Septic arthritis Impression: clinically improved PLAN: Arrangement for outpt management with antibiotics has been set up. Discharge in AM. Follow up in orthopedic clinic in 2 weeks. Qualifiers: Septic arthritis location: knee Septic arthritis organism: due to unspecified organism Laterality: left Qualified Code(s): M00.9 - Pyogenic arthritis, unspecified
[2020-04-05] MEDS: VANCOMYCIN INJ 1 GM, VANCOMYCIN INJ 500 MG in SODIUM CHLORIDE 0.9% 500 ML IV SCH ×2 (16:22→23:32)
[2020-04-05] MEDS ORDERED: INSULIN GLARGINE 300 UNIT/3 ML PEN SUBQ SCH ×2 (21:00)
[2020-04-06] MEDS: ACETAMINOPHEN 325 MG TABLET PO PRN ×2 (01:35→09:18)
[2020-04-06 05:21] LABS: BASOPHILS % (AUTO) 0.3 %; EOSINOPHILS # (AUTO) 0.3 10^3/uL (0.0-0.7); EOSINOPHILS % (AUTO) 2.2 %; HGB - HEMOGLOBIN 12.2 g/dL (12.0-16.0); LYMPHOCYTES # (AUTO) 4.4 10^3/uL (1.5-3.5); MEAN CORPUSCULAR HEMOGLOBIN 30.5 pg (27.0-31.0); MEAN CORPUSCULAR VOLUME 95.3 fL (81.0-99.0); MEAN PLATELET VOLUME 9.6 fL (7.9-10.8); MONOCYTES # (AUTO) 0.7 10^3/uL (0.0-1.0); MONOCYTES % (AUTO) 5.8 %; NEUTROPHILS # (AUTO) 6.1 10^3/uL (1.5-6.6); NEUTROPHILS % (AUTO) 53.3 %; PLT - PLATELET COUNT 283 10^3/uL (130-450); RED CELL DISTRIBUTION WIDTH 11.8 % (12.0-15.0); WHITE BLOOD COUNT 11.5 x10^3/uL (4.8-10.8)
[2020-04-06 05:49] LABS: ALBUMIN 2.7 g/dL (3.2-5.5); ALBUMIN/GLOBULIN RATIO 0.8 (1.0-2.2); BILIRUBIN,TOTAL 0.8 mg/dL (0.2-1.0); CALCIUM 8.4 mg/dL (8.5-10.3); CREATININE 0.3 mg/dL (0.4-1.0); CRP - C-REACTIVE PROTEIN 7.1 mg/dL (0-1.0); TOTAL PROTEIN 6.2 g/dL (6.7-8.2)
[2020-04-06] MEDS: VANCOMYCIN INJ 1 GM, VANCOMYCIN INJ 500 MG in SODIUM CHLORIDE 0.9% 500 ML IV SCH (09:18)
[2020-04-06] MEDS: ASPIRIN 325 MG TABLET PO SCH ×2 (09:19→17:00)
[2020-04-06] MEDS: INSULIN ASPART 300 UNIT/3 ML PEN SUBQ SCH ×6 (09:24→17:02)
[2020-04-06] MEDS: INSULIN GLARGINE 300 UNIT/3 ML PEN SUBQ SCH (09:25)
[2020-04-06] MEDS: DOCUSATE SODIUM 250 MG CAPSULE PO SCH (09:26)
[2020-04-06] MEDS: polyethylene glycoL 3350 17 GM PACKET PO SCH (09:26)
[2020-04-06] MEDS: SENNA 8.6 MG TABLET PO SCH (09:26)
[2020-04-06] MEDS: SODIUM CHLORIDE FLUSH 0.9% 10 ML SYRINGE IVP SCH ×3 (09:26→17:05)
--- NOTE | 2020-04-06 11:18 | PROVIDER PROGRESS NOTE ---
Subjective - Prog Note Date Prog Note Date: 04/06/20 Prog Note Time: 11:16 - Subjective Pt reports feeling: Improved Objective - Vital Signs/Intake & Output Vital Signs: Vital Signs x48h Temp Pulse Pulse Resp BP Pulse Ox 04/06/20 08:45 36.8 C 94 14 115/79 98 04/06/20 04:54 36.9 C 76 16 103/68 98 Intake & Output: Intake & Output 04/03/20 04/04/20 04/05/20 04/06/20 23:59 23:59 23:59 23:59 Intake Total 3433 2043.333 3440 700 Balance 3433 2043.333 3440 700 - Lab Results Fish Bones: 04/06/20 05:00 04/06/20 05:00 Other Labs: Lab Results x24hrs 04/06/20 04/06/20 04/06/20 Range/Units 10:57 07:33 05:00 WBC (4.8-10.8) x10^3/uL RBC (4.20-5.40) 10^6/uL Hgb (12.0-16.0) g/dL Hct (37.0-47.0) % MCV (81.0-99.0) fL MCH (27.0-31.0) pg MCHC (32.0-36.0) g/dL RDW (12.0-15.0) % Plt Count (130-450) 10^3/uL MPV (7.9-10.8) fL Neut # (Auto) (1.5-6.6) 10^3/uL Lymph # (Auto) (1.5-3.5) 10^3/uL [place] # (Auto) (0.0-1.0) 10^3/uL Eos # (Auto) (0.0-0.7) 10^3/uL Baso # (Auto) (0.0-0.1) 10^3/uL Absolute Nucleated RBC x10^3/uL Nucleated RBC % /100WBC ESR 80 H (0-20) mm/Hr Sodium (135-145) mmol/L Potassium (3.5-5.0) mmol/L Chloride (101-111) mmol/L Carbon Dioxide (21-32) mmol/L Anion Gap (6-13) BUN (6-20) mg/dL Creatinine (0.4-1.0) mg/dL Estimated GFR (MDRD) (>89) Glucose (70-100) mg/dL POC Whole Bld Glucose 230 H 180 H (70 - 100) mg/dL Calcium (8.5-10.3) mg/dL Total Bilirubin (0.2-1.0) mg/dL AST (10-42) IU/L ALT (10-60) IU/L Alkaline Phosphatase (42-121) IU/L C-Reactive Protein (0-1.0) mg/dL Total Protein (6.7-8.2) g/dL Albumin (3.2-5.5) g/dL Globulin (2.1-4.2) g/dL Albumin/Globulin Ratio (1.0-2.2) 04/06/20 04/06/20 04/05/20 Range/Units 05:00 05:00 20:38 WBC 11.5 H (4.8-10.8) x10^3/uL RBC 4.00 L (4.20-5.40) 10^6/uL Hgb 12.2 (12.0-16.0) g/dL Hct 38.1 (37.0-47.0) % MCV 95.3 (81.0-99.0) fL MCH 30.5 (27.0-31.0) pg MCHC 32.0 (32.0-36.0) g/dL RDW 11.8 L (12.0-15.0) % Plt Count 283 (130-450) 10^3/uL MPV 9.6 (7.9-10.8) fL Neut # (Auto) 6.1 (1.5-6.6) 10^3/uL Lymph # (Auto) 4.4 H (1.5-3.5) 10^3/uL [place] # (Auto) 0.7 (0.0-1.0) 10^3/uL Eos # (Auto) 0.3 (0.0-0.7) 10^3/uL Baso # (Auto) 0.0 (0.0-0.1) 10^3/uL Absolute Nucleated RBC 0.00 x10^3/uL Nucleated RBC % 0.0 /100WBC ESR (0-20) mm/Hr Sodium 135 (135-145) mmol/L Potassium 3.7 (3.5-5.0) mmol/L Chloride 102 (101-111) mmol/L Carbon Dioxide 25 (21-32) mmol/L Anion Gap 8.0 (6-13) BUN 9 (6-20) mg/dL Creatinine 0.3 L (0.4-1.0) mg/dL Estimated GFR (MDRD) 265 (>89) Glucose 178 H (70-100) mg/dL POC Whole Bld Glucose 208 H (70 - 100) mg/dL Calcium 8.4 L (8.5-10.3) mg/dL Total Bilirubin 0.8 (0.2-1.0) mg/dL AST 44 H (10-42) IU/L ALT 38 (10-60) IU/L Alkaline Phosphatase 106 (42-121) IU/L C-Reactive Protein 7.1 H (0-1.0) mg/dL Total Protein 6.2 L (6.7-8.2) g/dL Albumin 2.7 L (3.2-5.5) g/dL Globulin 3.5 (2.1-4.2) g/dL Albumin/Globulin Ratio 0.8 L (1.0-2.2) 04/05/20 04/05/20 Range/Units 16:44 11:47 WBC (4.8-10.8) x10^3/uL RBC (4.20-5.40) 10^6/uL Hgb (12.0-16.0) g/dL Hct (37.0-47.0) % MCV (81.0-99.0) fL MCH (27.0-31.0) pg MCHC (32.0-36.0) g/dL RDW (12.0-15.0) % Plt Count (130-450) 10^3/uL MPV (7.9-10.8) fL Neut # (Auto) (1.5-6.6) 10^3/uL Lymph # (Auto) (1.5-3.5) 10^3/uL [place] # (Auto) (0.0-1.0) 10^3/uL Eos # (Auto) (0.0-0.7) 10^3/uL Baso # (Auto) (0.0-0.1) 10^3/uL Absolute Nucleated RBC x10^3/uL Nucleated RBC % /100WBC ESR (0-20) mm/Hr Sodium (135-145) mmol/L Potassium (3.5-5.0) mmol/L Chloride (101-111) mmol/L Carbon Dioxide (21-32) mmol/L Anion Gap (6-13) BUN (6-20) mg/dL Creatinine (0.4-1.0) mg/dL Estimated GFR (MDRD) (>89) Glucose (70-100) mg/dL POC Whole Bld Glucose 171 H 197 H (70 - 100) mg/dL Calcium (8.5-10.3) mg/dL Total Bilirubin (0.2-1.0) mg/dL AST (10-42) IU/L ALT (10-60) IU/L Alkaline Phosphatase (42-121) IU/L C-Reactive Protein (0-1.0) mg/dL Total Protein (6.7-8.2) g/dL Albumin (3.2-5.5) g/dL Globulin (2.1-4.2) g/dL Albumin/Globulin Ratio (1.0-2.2) - Other Results/Comments Other Results/Comments: Up in chair without problems. Able to stand and weight bear on leg Assessment/Plan - Problem List (1) Septic arthritis Impression: Satis post op PLAN: Discharge home today. Antibiotics as discussed. Follow up in orthopedic clinic in 2 weeks. Qualifiers: Septic arthritis location: knee Septic arthritis organism: due to unspecified organism Laterality: left Qualified Code(s): M00.9 - Pyogenic arthritis, unspecified
[2020-04-06] MEDS: cefTRIAXone 2 GM in SODIUM CHLORIDE 0.9% MINIBAG 100 ML IV SCH (11:28)
[2020-04-06 15:54] VITALS: BP 127/75
[2020-04-06 16:04] LABS: VANCOMYCIN,TROUGH 7.3 ug/mL (10.0-20.0)
--- NOTE | 2020-04-06 17:15 | Discharge Plan ---
Discharge Plan Problem Reviewed?: Yes Disposition: Home, Self Care Condition: Stable Prescriptions: HYDROcod/ACETAM 5/325 [[place] 5/325] 1 tab PO Q4HR PRN #20 tablet PRN Reason: Pain Aspirin [Aspirin EC] 81 mg PO BID #30 tablet. Insulin Aspart [NovoLOG] 2 - 10 unit SUBQ 0800,1200,1700,2100 #5 pen Diet: Diabetic Activity Restrictions: Activity as Tolerated Shower Restrictions: No (fall precaution) Instruction Topics: Diabetes Intermediate Complications, Hyperglycemia, Diabetes Type 2 Coping, Blood Sugar Check, Diabetes Carbs, Arthritis Health Concerns: septic arthritis, uncontrolled diabetes Plan of Treatment: you will have Dalvance antibiotics on today, you may followup with orthopedics office for continuing management on tomorrow. Your A1c is 11.7, you are prescribed short acting insulin, you may followup with your PCP continue your diabetes management. Care Goals: stabilization and improvement of your medical conditions Assessment: discussed the care plan with you, answered your questions, you understood. Additional Instructions or Follow Up instructions: you may followup with your PCP in one week, followup with orthopedics office on tomorrow. should your symptoms return or worsen, you may present ER or call 911 for help. Follow-Up Care: [facility] [place] [facility] - Diabetes Ed No Smoking: If you smoke, Please STOP! Call for help. Follow-up with: John Kerns [Primary Care Provider] -
--- NOTE | 2020-04-06 17:40 | DISCHARGE SUMMARY ---
Discharge Summary Admit Date: 04/02/20 Discharge Date: 04/06/20 Discharging Provider: Jason Silva Primary Care Provider: Dru Elizalde Condition at Discharge: Stable Discharge Disposition: 01 Home, Self Care Discharge Facility Name: home - DIAGNOSES Discharge Diagnoses with Status of Each Condition: (1) Septic arthritis Patient report her left knee pain is good controlled. pt want to be d/c to home. Fluid culture and staining show rare gram positive cocci [place] [address]. Patient has no fever in the hospital, WBC trended down. Blood culture is negative for bacteremia. Clinically patient has greatly improved with pain control after treated with antibiotics. pt has once IV Dalvance 1500mg medication in the hospital instead of two weeks of IV antibiotics. pt will followup with Orthopedics office in tomorrow, and continue to have assessment as clinic indicated. (2) DM hyperosmolarity type II, uncontrolled pt has A1c 11.7, uncontrolled DM2, pt was consulted by diabetes education consult. Patient is prescribed short acting insulin, patient state she had all device for check glucose level in the home. (3) Obesity (BMI 30-39.9) Advised patient loss of her weight. - HPI History of Present Illness: refer from Dr. Foster's HPI on 04/02/20 Patient is 29-year-old female with medical history significant for diabetes mellitus type 2 on Lantus who presented to the ED with worsening left knee swelling and pain to the point where she was unable to walk today. Her symptoms started a couple of weeks ago when she slipped and fell in her kitchen landing on her left knee. The knee was bruised but there was no puncture injury to it. 1 week later it became harder to bend the knee. Another week after that the kne e was swollen. She went to urgent care where an x-ray was done on , 03/30/2020. She came to the emergency department on 04/01/2020 because the pain in the left knee had gotten worse and it was more difficult to get around. X-ray was repeated and she was given an immobilizing knee brace and discharged home. However today the pain was unbearable and she could not walk so she returned to the ED. Fluid was aspirated from the knee joint and it was concerning for a septic joint. There were a few gram-positive cocci on Gram stain and 22,000 WBCs. The patient did not have fever or redness in the area. However the knee was warm to touch. She denied chest pain, dyspnea, abdominal pain, nausea, vomiting. She was taken to the OR for a washout by Dr. Roman and then to the [facility] floor afterwards. She is being admitted for further treatment. Currently at bedside she was resting comfortably. - HOSPITAL COURSE Hospital Course: Patient was admitted for worsening left knee swelling and pain. Patient had I&D done by Orthopedics surgeon, And the fluids from I&D procedure was sent for culture and staining which show rare gram-positive cocci, Final culture [place] bacteria [place] [address] in fluid. Patient had a second I&D done by another orthopedic surgeon because she complain of more pain at her left knee. after antibiotics treatment, pt feel much better and pain is controlled. she want to be d/c to home. pt's diabetes was not controlled. pt was consulted with simulation educator. pt is prescribed short acting insulin. pt was given IV dalvance once at hospital instead of IV antibiotics in the home. Patient was discharged in hemodynamically stable condition - ALLERGIES Allergies/Adverse Reactions: Allergies Allergy/AdvReac Type Severity Reaction Status Date / Time No Known Drug Allergies Allergy Verified 04/02/20 12:05 - MEDICATIONS Home Medications: Ambulatory Orders Medication Instructions Recorded Confirmed Insulin Glargine [Lantus Solostar] 10 - 20 units SUBQ DAILY 04/01/20 04/02/20 Sitagliptin Phos/Metformin HCl 1 tab PO BID 04/01/20 04/02/20 [Janumet 50-1,000 mg Tablet] Aspirin [Aspirin EC] 81 mg PO BID #30 tablet. 04/06/20 HYDROcod/ACETAM 5/325 [[place] 5/325] 1 tab PO Q4HR PRN #20 tablet 04/06/20 Insulin Aspart [NovoLOG] 2 - 10 unit SUBQ 04/06/20 0800,1200,1700,2100 #5 pen - PHYSICAL EXAM AT DISCHARGE General Appearance: positive: No acute distress, Alert. negative: Lethargic Eyes Bilateral: positive: Normal inspection, PERRL, No lid inflammation ENT: positive: ENT inspection nml, No signs of dehydration. negative: Purulent nasal drainage Neck: positive: Nml inspection, Trachea midline. negative: Thyromegaly, Stiff neck, Tracheal deviation Respiratory: positive: Chest non-tender, No respiratory distress, Breath sounds nml. negative: Wheezes, Rales, Rhonchi Cardiovascular: positive: Regular rate & rhythm, No murmur. negative: Tachycardia, Bradycardia, Systolic murmur, Diastolic murmur Peripheral Pulses: positive: 2+ Abdomen: positive: Non-tender, Nml bowel sounds, No distention. negative: Tenderness, Guarding, Rebound Back: positive: Nml inspection. negative: CVA tenderness (R), CVA tenderness (L) Skin: positive: Color nml, Warm, Dry. negative: Cyanosis, Diaphoresis, Pallor Extremities: positive: Non-tender, Nml appearance. negative: Calf tenderness Neurologic/Psychiatric: positive: Oriented x3, Sensation nml, Mood/affect nml. negative: Weakness, Sensory loss, Facial droop, Slurred/abnml speech, Depressed mood/affect - LABS Result Diagrams: 04/06/20 05:00 04/06/20 05:00 - FOLLOW UP Follow Up: you will have Dalvance antibiotics on today, you may followup with orthopedics office for continuing management on tomorrow. Your A1c is 11.7, you are prescribed short acting insulin, you may followup with your PCP continue your diabetes management. you may followup with your PCP in one week, followup with orthopedics office on tomorrow. should your symptoms return or worsen, you may present ER or call 911 for help. - TIME SPENT Time Spent in Discharge (Minutes): 30
== END 2020-04-06 18:22 | disposition home or self-care (01) | DRG 548 ==
LOC: ED 12:02 → MS2 15:43
PROVIDERS: ADMIT Internal Medicine; ATTEND Nurse Practitioner Gerontology
PROC: 0S9D4ZX Drainage of Left Knee Joint, Percutaneous Endoscopic Approach, Diagnostic (ICD-10-PCS; principal; 2020-04-02 15:18)
PROC: 02H633Z Insertion of Infusion Device into Right Atrium, Percutaneous Approach (ICD-10-PCS; 2020-04-03)
PROC: 0S9D4ZX Drainage of Left Knee Joint, Percutaneous Endoscopic Approach, Diagnostic (ICD-10-PCS; 2020-04-04)
DX: M00.9 Pyogenic arthritis, unspecified (principal); E11.00 Type 2 diabetes mellitus with hyperosmolarity without nonketotic hyperglycemic-hyperosmolar coma (NKHHC); E87.1 Hypo-osmolality and hyponatremia; E11.65 Type 2 diabetes mellitus with hyperglycemia; M65.862 Other synovitis and tenosynovitis, left lower leg; M94.262 Chondromalacia, left knee; L73.2 Hidradenitis suppurativa; E66.9 Obesity, unspecified; W19.XXXD Unspecified fall, subsequent encounter; Z68.39 Body mass index [BMI] 39.0-39.9, adult; Z79.4 Long term (current) use of insulin; S80.02XD Contusion of left knee, subsequent encounter; Z87.891 Personal history of nicotine dependence; Z72.89 Other problems related to lifestyle
CPT/HCPCS: 0202U; 20610; 36415; 71045; 80053; 80202; 81599; 82009; 83036; 83690; 84703; 85025; 85651; 86140; 87040; 87070; 87205; 89051; 89060; 97161; 97165; 97530; 99284; 99285; A9270; C1751; J1170; J1815; J2765; J2795; J3370; J7120; Q0162

== ENCOUNTER 2020-04-10 10:31 | Outpatient (CLI) | payer OTHER ==
--- NOTE | 2020-04-10 12:58 | XRAY Report ---
PROCEDURE: Knee 3 View LT INDICATIONS: L KNEE PX TECHNIQUE: 3 views of the left knee(s) were acquired. COMPARISON: None. FINDINGS: Bones: Mild medial femorotibial joint space narrowing. Remaining joint spaces maintained. No fracture s or dislocations. No suspicious bony lesions. Soft tissues: No joint effusion. No suspicious soft tissue calcifications. IMPRESSION: Mild medial femorotibial joint space narrowing. Reviewed by: Silver Aguilar MD on 04/10/2020 11:57 AM [facility] Approved by: Silver Aguilar MD on 04/10/2020 11:57 AM [facility] Station ID: [id number]
== END 2020-04-10 23:59 | disposition home or self-care (01) ==
LOC: DI.N 10:31
PROVIDERS: ATTEND Physician Assistant
DX: M25.562 Pain in left knee (principal)

== ENCOUNTER 2020-06-21 16:48 | Outpatient (CLI) | payer OTHER | END 2020-06-21 16:49 | disposition home or self-care (01) | LOC: LAB.N 16:48 | PROVIDERS: ATTEND Physician Assistant | DX: M00.862 Arthritis due to other bacteria, left knee (principal) | CPT/HCPCS: 36415; 85651; 86140 ==

== ENCOUNTER 2020-07-24 11:03 | Emergency (ER) | payer OTHER ==
--- NOTE | 2020-07-24 11:27 | ED Physician Documentation ---
PD HPI ABD PAIN - Stated complaint Stated Complaint: ABD PX - Chief complaint Chief Complaint: Abd Pain - History obtained from History obtained from: Patient - History of Present Illness Timing - onset: Last night, Yesterday Timing - duration: Days (1) Timing - details: Gradual onset, Still present Quality: Cramping, Aching, Pain Location: RUQ, Epigastric Radiation: Right flank Improved by: No: Vomiting, Meds (tried ibuprofen at home) Worsened by: Eating Associated symptoms: Nausea, Vomiting (once last evening), Loss of appetite. No: Hematemesis, Diarrhea (soft stool for past 2 days, no diarrhea per se.), Near syncope / syncope Similar symptoms before: Diagnosis (She has had similar episodes about every 3 to 4 months for the last couple of years. Diagnosis was presumed gallbladder problem and she had met with the surgeon about having gallbladder removal. This was deferred I believe due to Covid.) Recently seen: Clinic (first Moderna vaccine 2 weeks ago.) Review of Systems Constitutional: reports: Myalgias. denies: Fever, Chills Nose: denies: Rhinorrhea / runny nose, Congestion Throat: denies: Sore throat Respiratory: denies: Cough GI: reports: Abdominal Pain (episodic), Nausea, Vomiting. denies: Diarrhea : denies: Dysuria, Frequency Skin: denies: Rash, Lesions Neurologic: reports: Generalized weakness. 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 - Present Medications Home Medications: Ambulatory Orders Medication Instructions Recorded Confirmed Insulin Glargine [Lantus Solostar] 10 - 20 units SUBQ DAILY 04/01/20 07/24/20 Sitagliptin Phos/Metformin HCl 1 tab PO BID 04/01/20 07/24/20 [Janumet 50-1,000 mg Tablet] Insulin Aspart [NovoLOG] 2 - 10 unit SUBQ 04/06/20 07/24/20 0800,1200,1700,2100 #5 pen Dicyclomine [Bentyl] 10 mg PO QID PRN #20 cap 07/24/20 HYDROcod/ACETAM 5/325 [[place] 5/325] 1 ea PO Q6H PRN #15 tablet 07/24/20 Ondansetron Odt [Zofran] 4 mg TL Q6H PRN #20 tablet 07/24/20 - Allergies Allergies/Adverse Reactions: Allergies Allergy/AdvReac Type Severity Reaction Status Date / Time No Known Drug Allergies Allergy Verified 07/24/20 11:10 - Social History Does the pt smoke?: No Smoking Status: Never smoker Does the pt drink ETOH?: Yes Does the pt have substance abuse?: No - Immunizations Immunizations are current?: Yes - POLST Patient has POLST: No POLST Status: Full Code PD ED PE NORMAL - Vitals Vital signs reviewed: Yes - General General: Alert and oriented X 3, Well developed/nourished, Other (appears in pain from upper abd.) - HEENT HEENT: Moist mucous membranes, Pharynx benign - Neck Neck: Supple, no meningeal sign, No adenopathy - Cardiac Cardiac: RRR (mild tachycardia), No murmur - Respiratory Respiratory: Clear bilaterally - Abdomen Abdomen: Normal bowel sounds, Soft, Non distended, No organomegaly, Other (Moderately obese with tenderness in the epigastric to right upper quadrant area. There is percussion and mild rebound tenderness. No referred tenderness from the right lower abdomen. No CVA tenderness.) - Female Female : Deferred - Rectal Rectal: Deferred - Back Back: No CVA TTP - Derm Derm: Normal color, Warm and dry, No rash - Extremities Extremities: No edema, No calf tenderness / cord - Neuro Neuro: Alert and oriented X 3, No motor deficit, Normal speech Results - Vitals Vitals: Vital Signs - 24 hr 07/24/20 07/24/20 07/24/20 11:08 13:31 15:05 Temperature 36.2 C L Heart Rate 106 H 90 91 Respiratory 16 16 20 Rate Blood Pressure 131/89 H 127/87 H 112/80 O2 Saturation 100 97 99 Oxygen O2 Source Room air - Labs Labs: Laboratory Tests 07/24/20 07/24/20 07/24/20 11:20 11:40 11:40 WBC 12.3 H RBC 4.69 Hgb 14.2 Hct 42.5 MCV 90.6 MCH 30.3 MCHC 33.4 RDW 12.1 Plt Count 330 MPV 9.6 Neut # (Auto) 7.4 H Lymph # (Auto) 4.1 H [place] # (Auto) 0.6 Eos # (Auto) 0.1 Baso # (Auto) 0.0 Absolute Nucleated RBC 0.00 Nucleated RBC % 0.0 Sodium 134 L Potassium 3.5 Chloride 99 L Carbon Dioxide 26 Anion Gap 9.0 BUN 16 Creatinine 0.5 Estimated GFR (MDRD) 147 Glucose 242 H Calcium 9.2 Total Bilirubin 0.8 AST 55 H ALT 40 Alkaline Phosphatase 159 H Total Protein 8.4 H Albumin 4.1 Globulin 4.3 H Albumin/Globulin Ratio 1.0 Lipase 28 Urine Color DARK YELLOW Urine Clarity CLEAR Urine pH 5.5 Ur Specific [place] >=1.030 H Urine Protein 30 H Urine Glucose (UA) 250 H Urine Ketones NEGATIVE Urine Occult Blood LARGE H Urine Nitrite NEGATIVE Urine Bilirubin SMALL H Urine Urobilinogen 0.2 (NORMAL) Ur Leukocyte Esterase NEGATIVE Urine RBC TNTC H Urine WBC 0-3 Ur Squamous Epith Cells FEW Squamous Urine Bacteria Rare Urine Mucus Moderate Strands Ur Microscopic Review INDICATED Urine Culture Comments NOT INDICATED Urine HCG, Qual NEGATIVE - Rads (name of study) RUQ U/S Radiology: Prelim report reviewed (no stones, GB wall 1.3 mm; CBD 5.4 mm. No hydronephrosis. ), See rad report PD MEDICAL DECISION MAKING - ED course Complexity details: reviewed results (No signs of acute cholecystitis or pancreatitis. She may have some element of gastritis but otherwise sounds like biliary colic.), re-evaluated patient (Symptoms are improved with IV fluids and medications. However her nausea does return after short while and redosed on antiemetics. She had some mild increase in pain as well.), considered differential (Her symptoms and findings seem consistent with gallbladder process. Will check labs for pancreatic as well. She had a Covid did not vaccine 2 weeks ago so seems a bit delayed for side effects to that. Has had gallbladder problems in the past.), d/w patient, d/w apartment leasing consultant (Talked with Dr. Granda on-call for surgery who would be happy to see the patient in follow-up in the office.) Departure - Departure Disposition: 01 Home, Self Care Clinical Impression: Acute upper abdominal pain Condition: Stable Record reviewed to determine appropriate education?: Yes Instructions: Abdominal Pain Follow-Up: Dru Currie DO [Primary Care Provider] - Uche Finley MD [Provider Admit Priv/Credential] - Ranjeet Hernandez MD [Provider Admit Priv/Credential] - Prescriptions: Dicyclomine [Bentyl] 10 mg PO QID PRN #20 cap PRN Reason: Abdominal Pain HYDROcod/ACETAM 5/325 [[place] 5/325] 1 ea PO Q6H PRN #15 tablet PRN Reason: Pain Ondansetron Odt [Zofran] 4 mg TL Q6H PRN #20 tablet PRN Reason: Nausea / Vomiting Comments: No signs of acute inflammation or infection of your gallbladder at this point on your labs or ultrasound. Your symptoms do sound like gallbladder spasms and colic and this can happen in the absence of gallstones. I talked with our surgeon on-call and there is no indication for acute surgery right now. Follow-up with general surgery in the office to discuss potential gallbladder surgery, the pros and cons of it. Meanwhile use ondansetron if needed for nausea and dicyclomine for pain and spasms. Add Tylenol or hydrocodone if needed for worse pain. [place] food with low fat over the next 2 to 3 days and progress to a more normal diet as tolerated. Return to the ER if worsening again. Discharge Date/Time: 07/24/20 15:20
[2020-07-24 11:30] LABS: GLUCOSE, URINE (UA) 250 mg/dL (NEGATIVE); KETONES,URINE (UA) NEGATIVE (NEGATIVE); LEUKOCYTE ESTERASE, URINE NEGATIVE (NEGATIVE); NITRITE,URINE NEGATIVE (NEGATIVE); OCCULT BLOOD,URINE LARGE (NEGATIVE); PH,URINE 5.5 PH (5.0-7.5); PROTEIN,URINE 30 mg/dL (NEGATIVE); UROBILINOGEN,URINE 0.2 (NORMAL) E.U./dL (NORMAL)
[2020-07-24 11:35] LABS: BILIRUBIN,URINE SMALL (NEGATIVE); CLARITY,URINE CLEAR (CLEAR); ICTOTEST,URINE POSITIVE
[2020-07-24 11:36] LABS: HCG UR QUAL NEGATIVE
[2020-07-24 11:41] LABS: WBC,URINE 0-3 /HPF (0-5)
[2020-07-24] MEDS ORDERED: FAMOTIDINE 20 MG/2 ML VIAL IVP STA (11:41)
[2020-07-24] MEDS ORDERED: SODIUM CHLORIDE 0.9% 1,000 ML IV STA (11:41)
[2020-07-24] MEDS ORDERED: HYDROmorphone 0.5 MG/0.5 ML SYRINGE IVP STA (11:41)
[2020-07-24] MEDS ORDERED: KETOROLAC 15 MG/ML VIAL IVP STA (11:41)
[2020-07-24] MEDS ORDERED: ONDANSETRON 4 MG/2 ML VIAL IVP STA ×2 (11:41→13:38)
[2020-07-24 11:42] LABS: BACTERIA,URINE Rare /HPF (None Seen); MUCUS,URINE Moderate Strands; RBC,URINE TNTC /HPF (0-5); SQUAMOUS EPITHELIAL CELL,UR FEW Squamous (<= Few)
[2020-07-24 12:01] LABS: BASOPHILS % (AUTO) 0.2 %; EOSINOPHILS # (AUTO) 0.1 10^3/uL (0.0-0.7); EOSINOPHILS % (AUTO) 1.1 %; HCT - HEMATOCRIT 42.5 % (37.0-47.0); HGB - HEMOGLOBIN 14.2 g/dL (12.0-16.0); LYMPHOCYTES # (AUTO) 4.1 10^3/uL (1.5-3.5); LYMPHOCYTES % (AUTO) 33.3 %; MEAN CORPUSCULAR HEMOGLOBIN 30.3 pg (27.0-31.0); MEAN CORPUSCULAR HGB CONC 33.4 g/dL (32.0-36.0); MEAN CORPUSCULAR VOLUME 90.6 fL (81.0-99.0); MEAN PLATELET VOLUME 9.6 fL (7.9-10.8); MONOCYTES # (AUTO) 0.6 10^3/uL (0.0-1.0); MONOCYTES % (AUTO) 4.9 %; NEUTROPHILS # (AUTO) 7.4 10^3/uL (1.5-6.6); NEUTROPHILS % (AUTO) 60.1 %; PLT - PLATELET COUNT 330 10^3/uL (130-450); RED BLOOD COUNT 4.69 10^6/uL (4.20-5.40); RED CELL DISTRIBUTION WIDTH 12.1 % (12.0-15.0); WHITE BLOOD COUNT 12.3 x10^3/uL (4.8-10.8)
[2020-07-24 12:15] LABS: ALBUMIN 4.1 g/dL (3.2-5.5); BILIRUBIN,TOTAL 0.8 mg/dL (0.2-1.0); CALCIUM 9.2 mg/dL (8.5-10.3); CREATININE 0.5 mg/dL (0.4-1.0); POTASSIUM 3.5 mmol/L (3.5-5.0); TOTAL PROTEIN 8.4 g/dL (6.7-8.2)
--- NOTE | 2020-07-24 13:01 | Ultrasound Report ---
PROCEDURE: Abdomen Limited INDICATIONS: upper abd pain since yest; h/o gallstones TECHNIQUE: Real-time focused scanning was performed of the abdomen, with image documentation. COMPARISON: None. FINDINGS: The liver is normal and craniocaudad height, and coarse in echotexture consistent with fat ty infiltration. There is mild sparing at the gallbladder fossa resulting in focally reduced echotext ure at that site. The gallbladder itself is normal in appearance. The bile ducts are not distended. T he pancreas cannot be seen due to body habitus and bowel gas. The right kidney is normal. IMPRESSION: Limitations of this study are present due to bowel gas, reducing visualization of the retroperitoneum and therefore the pancreas could not be located. Fatty infiltration within the liver, liver size at the upper limits of normal. No hydronephrosis or nephrolithiasis found on the right.. Reviewed by: Ariel Hurtado MD on 07/24/2020 12:59 PM PDT Approved by: Ariel Hurtado MD on 07/24/2020 12:59 PM PDT Station ID: [id number]
[2020-07-24] MEDS ORDERED: HYDROmorphone 1 MG/ML CARPUJECT IVP STA (13:53)
[2020-07-24] MEDS ORDERED: DROPERIDOL 5 MG/2 ML VIAL IVP STA (14:52)
[2020-07-24 15:06] VITALS: BP 112/80
== END 2020-07-24 15:20 | disposition home or self-care (01) ==
LOC: ED 11:03
DX: R10.11 Right upper quadrant pain (principal); R10.13 Epigastric pain; R11.2 Nausea with vomiting, unspecified; E11.9 Type 2 diabetes mellitus without complications; Z79.4 Long term (current) use of insulin
CPT/HCPCS: 36415; 76705; 80053; 81001; 81025; 83690; 85025; 96361; 96374; 96375; 96376; 99284; 99285; J1170; 81003; 87086

== ENCOUNTER 2020-09-06 12:28 | Emergency (ER) | payer OTHER ==
[2020-09-06 13:08] LABS: BASOPHILS # (AUTO) 0.1 10^3/uL (0.0-0.1); BASOPHILS % (AUTO) 0.5 %; EOSINOPHILS # (AUTO) 0.1 10^3/uL (0.0-0.7); EOSINOPHILS % (AUTO) 1.1 %; HCT - HEMATOCRIT 43.8 % (37.0-47.0); HGB - HEMOGLOBIN 14.5 g/dL (12.0-16.0); LYMPHOCYTES # (AUTO) 4.6 10^3/uL (1.5-3.5); MEAN CORPUSCULAR HEMOGLOBIN 30.1 pg (27.0-31.0); MEAN CORPUSCULAR HGB CONC 33.1 g/dL (32.0-36.0); MEAN CORPUSCULAR VOLUME 91.1 fL (81.0-99.0); MEAN PLATELET VOLUME 9.3 fL (7.9-10.8); MONOCYTES # (AUTO) 0.6 10^3/uL (0.0-1.0); NEUTROPHILS # (AUTO) 7.3 10^3/uL (1.5-6.6); NEUTROPHILS % (AUTO) 56.7 %; PLT - PLATELET COUNT 354 10^3/uL (130-450); RED BLOOD COUNT 4.81 10^6/uL (4.20-5.40); RED CELL DISTRIBUTION WIDTH 12.1 % (12.0-15.0); WHITE BLOOD COUNT 12.8 x10^3/uL (4.8-10.8)
[2020-09-06 13:20] LABS: ALBUMIN 4.4 g/dL (3.2-5.5); BILIRUBIN,TOTAL 0.6 mg/dL (0.2-1.0); CALCIUM 9.1 mg/dL (8.5-10.3); CREATININE 0.5 mg/dL (0.4-1.0); POTASSIUM 3.5 mmol/L (3.5-5.0); TOTAL PROTEIN 8.9 g/dL (6.7-8.2)
[2020-09-06 13:29] LABS: BILIRUBIN,URINE NEGATIVE (NEGATIVE); GLUCOSE, URINE (UA) >=1000 mg/dL (NEGATIVE); KETONES,URINE (UA) NEGATIVE (NEGATIVE); LEUKOCYTE ESTERASE, URINE NEGATIVE (NEGATIVE); NITRITE,URINE NEGATIVE (NEGATIVE); OCCULT BLOOD,URINE MODERATE (NEGATIVE); PH,URINE 5.5 PH (5.0-7.5); PROTEIN,URINE 30 mg/dL (NEGATIVE); UROBILINOGEN,URINE 0.2 (NORMAL) E.U./dL (NORMAL)
[2020-09-06 13:32] LABS: CLARITY,URINE HAZY (CLEAR); HCG UR QUAL NEGATIVE
[2020-09-06 13:41] LABS: BACTERIA,URINE Few /HPF (None Seen); RBC,URINE 0-5 /HPF (0-5); SQUAMOUS EPITHELIAL CELL,UR FEW Squamous (<= Few); WBC,URINE 0-3 /HPF (0-5)
[2020-09-06] MEDS ORDERED: IOVERSOL 320 100 ML VIAL IVP ONE ×2 (14:40→15:01)
[2020-09-06] MEDS ORDERED: SUCRALFATE 1 GM/10 ML UDC PO STA (14:51)
[2020-09-06] MEDS ORDERED: MORPHINE 2 MG/ML CARPUJECT IVP STA (14:51)
[2020-09-06] MEDS ORDERED: LIDOCAINE VISCOUS 2% 15 ML UDC MM STA (14:51)
[2020-09-06] MEDS ORDERED: MAG HYDROX/AL HYDROX/SIMETH 30 ML UDC PO STA (14:51)
[2020-09-06] MEDS ORDERED: FAMOTIDINE 20 MG TABLET PO STA (14:51)
--- NOTE | 2020-09-06 14:51 | ED Physician Documentation ---
PD HPI ABD PAIN - Stated complaint Stated Complaint: ABD PX, NAUSEA - Chief complaint Chief Complaint: Abd Pain - History obtained from History obtained from: Patient - History of Present Illness Timing - onset: Today Timing - duration: Hours (4) Timing - details: Gradual onset Pain level max: 8 Pain level now: 6 Quality: Aching, Pain Location: RUQ, Epigastric, LUQ Radiation: Other (non-radiating.) Improved by: Other (nothing) Worsened by: Eating, Moving Associated symptoms: No: Fever, Vomiting, Hematemesis, Diarrhea, Constipation, Melena, Hematochezia, Dysuria - Additional information Additional information: Patient is a 29-year-old female who presents to the emergency department stating that she has abdominal pain today. She states this started this morning. Epigastric. Similar to prior events. She states is been ongoing for years. She states she has been worked up for biliary causes, but no cause found. Negative HIDA scan. Negative ultrasounds. She has never had an EGD. Does not know of anything that makes this better or worse. No diarrhea. No constipation. No blood in the stool. Denies any possibility of . 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 : Other HEENT: None Psych: Depression Musculoskeletal: Other Derm: Other - Past Surgical History Past Surgical History: Yes Ortho: Other /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 HEENT: Tonsil/Adenoidectomy - Present Medications Home Medications: Ambulatory Orders Medication Instructions Recorded Confirmed Insulin Glargine [Lantus Solostar] 10 - 20 units SUBQ DAILY 04/01/20 09/06/20 Sitagliptin Phos/Metformin HCl 1 tab PO BID 04/01/20 09/06/20 [Janumet 50-1,000 mg Tablet] Insulin Aspart [NovoLOG] 2 - 10 unit SUBQ 04/06/20 09/06/20 0800,1200,1700,2100 #5 pen Esomeprazole Magnesium [Nexium] 40 mg PO DAILY #30 cap 09/06/20 Famotidine [Pepcid] 20 mg PO BID #60 tablet 09/06/20 HYDROcod/ACETAM 5/325 [[place] 5/325] 1 - 2 ea PO Q6H PRN #14 tablet 09/06/20 Sucralfate [Carafate] 1 gm PO ACHS #60 tablet 09/06/20 - Allergies Allergies/Adverse Reactions: Allergies Allergy/AdvReac Type Severity Reaction Status Date / Time adhesive tape Allergy Rash Verified 09/06/20 12:49 latex Allergy Rash Verified 09/06/20 12:49 - Social History Does the pt smoke?: No Smoking Status: Former smoker Does the pt drink ETOH?: Yes Does the pt have substance abuse?: No - Immunizations Immunizations are current?: Yes - POLST Patient has POLST: No POLST Status: Full Code PD ED PE NORMAL - Vitals Vital signs reviewed: Yes - General General: Alert and oriented X 3, No acute distress, Well developed/nourished - HEENT HEENT: PERRL, Moist mucous membranes - Neck Neck: Supple, no meningeal sign - Cardiac Cardiac: RRR, Strong equal pulses - Respiratory Respiratory: No respiratory distress, Clear bilaterally - Abdomen Abdomen: Soft, Non distended, Other (Tender palpation epigastric and right upper quadrant. No peritoneal signs. Negative Marvin sign) - Derm Derm: Warm and dry - Extremities Extremities: No edema, No calf tenderness / cord - Neuro Neuro: Alert and oriented X 3 - Psych Psych: Normal mood, Normal affect Results - Vitals Vitals: Vital Signs - 24 hr 09/06/20 09/06/20 09/06/20 12:45 13:18 16:46 Temperature 36.7 C 37.2 C 37 C Heart Rate 98 89 95 Respiratory 16 18 18 Rate Blood Pressure 135/90 H 128/85 H 119/84 H O2 Saturation 100 100 98 Oxygen O2 Source Room air - Labs Labs: Laboratory Tests 09/06/20 09/06/20 09/06/20 12:50 13:00 13:00 WBC 12.8 H RBC 4.81 Hgb 14.5 Hct 43.8 MCV 91.1 MCH 30.1 MCHC 33.1 RDW 12.1 Plt Count 354 MPV 9.3 Neut # (Auto) 7.3 H Lymph # (Auto) 4.6 H [place] # (Auto) 0.6 Eos # (Auto) 0.1 Baso # (Auto) 0.1 Absolute Nucleated RBC 0.00 Nucleated RBC % 0.0 Sodium 136 Potassium 3.5 Chloride 98 L Carbon Dioxide 25 Anion Gap 13.0 BUN 17 Creatinine 0.5 Estimated GFR (MDRD) 147 Glucose 227 H Calcium 9.1 Total Bilirubin 0.6 AST 42 ALT 37 Alkaline Phosphatase 160 H Total Protein 8.9 H Albumin 4.4 Globulin 4.5 H Albumin/Globulin Ratio 1.0 Lipase 31 Urine Color DARK YELLOW Urine Clarity HAZY Urine pH 5.5 Ur Specific [place] >=1.030 H Urine Protein 30 H Urine Glucose (UA) >=1000 H Urine Ketones NEGATIVE Urine Occult Blood MODERATE H Urine Nitrite NEGATIVE Urine Bilirubin NEGATIVE Urine Urobilinogen 0.2 (NORMAL) Ur Leukocyte Esterase NEGATIVE Urine RBC 0-5 Urine WBC 0-3 Ur Squamous Epith Cells FEW Squamous Urine Bacteria Few Ur Microscopic Review INDICATED Urine Culture Comments NOT INDICATED Urine HCG, Qual NEGATIVE PD MEDICAL DECISION MAKING - ED course Complexity details: reviewed results, re-evaluated patient, considered differential, d/w patient ED course: Unclear etiology the patient's symptoms. Does feel better after GI cocktail. Possible gastritis? No acute findings on CT of the abdomen pelvis. She is not tender in the right lower quadrant. Patient has been worked up multiple times for biliary colic including negative ultrasound and negative HIDA scan. Possible gastroparesis? She would likely benefit from an EGD and possible gastric emptying study. She will follow up with her doctor for this. We will place her on a PPI and Carafate for home. Patient is well-appearing, nontoxic. Pain improved in the emergency department. Patient counseled regarding signs and symptoms for which I believe and urgent re-evaluation would be necessary. Patient with good understanding of and agreement to plan and is comfortable going home at this time This document was made in part using voice recognition software. While efforts are made to proofread this document, sound alike and grammatical errors may occur. Departure - Departure Disposition: 01 Home, Self Care Clinical Impression: Abdominal pain Qualifiers: Abdominal location: unspecified location Qualified Code(s): R10.9 - Unspecified abdominal pain Condition: Good Instructions: ED Abdominal Pain Unkn Cause Follow-Up: Lemme,Dru, DO [Primary Care Provider] - Within 1 week Prescriptions: Sucralfate [Carafate] 1 gm PO ACHS #60 tablet Esomeprazole Magnesium [Nexium] 40 mg PO DAILY #30 cap HYDROcod/ACETAM 5/325 [[place] 5/325] 1 - 2 ea PO Q6H PRN #14 tablet PRN Reason: Pain Famotidine [Pepcid] 20 mg PO BID #60 tablet Comments: The cause of your symptoms is unclear today. Please follow-up with Dr. Currie for further care. Return if you worsen. You would likely benefit from a gastric emptying study and EGD. Possible that you have gastritis and or ulcers. Possible that you have gastroparesis. Return if you worsen. I am prescribing a short course of narcotic pain medication for you. These are potentially dangerous and addictive medications that should be used carefully. These medications may constipate you. Take an nghd-joq-lyagcjy stool softener (docusate) twice daily with plenty of water while taking these medications. If you go 24 hours without a bowel movement, take mwsi-[id number] miralax, per package instructions. Do not drink or drive while taking these medications. If you received narcotic or sedating medications while in the emergency department, do not drive for 24 hours. Store this medication in a safe, secure place and out of reach of children. It is a violation of federal law to give or sell this medication to another person or to use in a manner other than prescribed. The ED will not refill narcotic prescriptions, including prescriptions lost or stolen. To dispose of unwanted medications: 1. [facility] at [address] in [place] has a medication drop box. They accept prescription medications (in pill form) Friday through Friday 9:00 a.m. to 5:00 p.m. 2. The [facility] [employer] accepts prescription medications (in pill form only) for disposal year round. Call for more information. 3. Contact the [facility] for the next [facility] sponsored prescription drug collection event. , [phone], or [phone]; Discharge Date/Time: 09/06/20 16:47
--- NOTE | 2020-09-06 15:20 | CT Report ---
PROCEDURE: Abdomen/Pelvis W INDICATIONS: epigastric abd pain CONTRAST: IV CONTRAST: Optiray 320 ml: 100 PO CONTRAST: *NO PO CONTRAST TECHNIQUE: After the administration of IV contrast, 5 mm thick sections acquired from the diaphragms to the symp hysis. 5 mm thick coronal and sagittal reformats were acquired. For radiation dose reduction, the f ollowing was used: automated exposure control, adjustment of mA and/or kV according to patient size. COMPARISON: Abdomen ultrasound 07/24/2020 FINDINGS: Image quality: Excellent. ABDOMEN: Lung bases: Lung bases are clear. Heart size is normal. Solid organs: Liver is enlarged with steatosis. The spleen is normal in size and enhancement. Gallb ladder is unremarkable. Biliary system is non dilated. Pancreas enhances normally. No adrenal nodu les. Kidneys demonstrate normal size and enhancement, without hydronephrosis. Peritoneum and bowel: Bowel loops are nonobstructed. The proximal portion of the appendix is at the upper limits of normal measuring 6 mm. No appreciable associated inflammatory change. No free fluid o r air. Nodes and vessels: No retroperitoneal or mesenteric adenopathy by size criteria. Scattered right low er quadrant lymph nodes are present the largest measuring 9 mm in short axis. Aorta and inferior vena cava are normal in size. Miscellaneous: No ventral hernias. PELVIS: Genitourinary: Bladder wall thickness is normal. Miscellaneous: No inguinal hernias or adenopathy. Bones: No suspicious bony lesions. No vertebral body compression fractures. IMPRESSION: 1. Proximal portion of the appendix is at the upper limits of normal without associated inflammatory change. No priors are available for comparison. This could be secondary to normal variation in size. However, if pain or other clinical symptoms are present within this region, short interval imaging fo llow-up is recommended as very early appendicitis cannot be definitively excluded. 2. Scattered right lower quadrant lymph nodes possibly reactive in nature. Reviewed by: Hermelinda Bauman MD on 09/06/2020 3:19 PM PDT Approved by: Hermelinda Bauman MD on 09/06/2020 3:19 PM PDT Station ID: [id number]
[2020-09-06 16:47] VITALS: BP 119/84
== END 2020-09-06 16:47 | disposition home or self-care (01) ==
LOC: ED 12:28
DX: R10.9 Unspecified abdominal pain (principal); Z87.891 Personal history of nicotine dependence
CPT/HCPCS: 36415; 74177; 80053; 81001; 81025; 83690; 85025; 96374; 99284; A9270; Q9967; 81003; 87086

== ENCOUNTER 2021-02-08 08:55 | Emergency (ER) | payer OTHER ==
[2021-02-08 09:26] LABS: BILIRUBIN,URINE NEGATIVE (NEGATIVE); GLUCOSE, URINE (UA) 250 mg/dL (NEGATIVE); KETONES,URINE (UA) TRACE mg/dL (NEGATIVE); LEUKOCYTE ESTERASE, URINE NEGATIVE (NEGATIVE); NITRITE,URINE NEGATIVE (NEGATIVE); OCCULT BLOOD,URINE MODERATE (NEGATIVE); PH,URINE 5.5 PH (5.0-7.5); PROTEIN,URINE NEGATIVE (NEGATIVE); UROBILINOGEN,URINE 0.2 (NORMAL) E.U./dL (NORMAL)
[2021-02-08 09:28] LABS: BASOPHILS # (AUTO) 0.1 10^3/uL (0.0-0.1); BASOPHILS % (AUTO) 0.5 %; EOSINOPHILS # (AUTO) 0.3 10^3/uL (0.0-0.7); EOSINOPHILS % (AUTO) 2.7 %; HCT - HEMATOCRIT 42.6 % (37.0-47.0); HGB - HEMOGLOBIN 13.9 g/dL (12.0-16.0); LYMPHOCYTES # (AUTO) 3.6 10^3/uL (1.5-3.5); LYMPHOCYTES % (AUTO) 30.3 %; MEAN CORPUSCULAR HEMOGLOBIN 29.6 pg (27.0-31.0); MEAN CORPUSCULAR HGB CONC 32.6 g/dL (32.0-36.0); MEAN CORPUSCULAR VOLUME 90.6 fL (81.0-99.0); MEAN PLATELET VOLUME 9.2 fL (7.9-10.8); MONOCYTES # (AUTO) 0.5 10^3/uL (0.0-1.0); MONOCYTES % (AUTO) 4.5 %; NEUTROPHILS # (AUTO) 7.2 10^3/uL (1.5-6.6); NEUTROPHILS % (AUTO) 61.7 %; PLT - PLATELET COUNT 379 10^3/uL (130-450); RED CELL DISTRIBUTION WIDTH 12.1 % (12.0-15.0); WHITE BLOOD COUNT 11.7 x10^3/uL (4.8-10.8)
[2021-02-08 09:29] LABS: CLARITY,URINE CLEAR (CLEAR); HCG UR QUAL NEGATIVE
[2021-02-08 09:42] LABS: BACTERIA,URINE Few /HPF (None Seen); MUCUS,URINE Few Strands; SQUAMOUS EPITHELIAL CELL,UR MOD Squamous (<= Few); WBC,URINE 0-3 /HPF (0-5)
[2021-02-08 09:43] LABS: CRYSTALS,URINE 11-25 Ca Oxalate /LPF
[2021-02-08 09:46] LABS: ALBUMIN 4.2 g/dL (3.2-5.5); BILIRUBIN,TOTAL 0.6 mg/dL (0.2-1.0); CALCIUM 9.3 mg/dL (8.5-10.3); CREATININE 0.6 mg/dL (0.4-1.0); POTASSIUM 3.8 mmol/L (3.5-5.0); TOTAL PROTEIN 8.5 g/dL (6.7-8.2)
[2021-02-08] MEDS ORDERED: MORPHINE 2 MG/ML CARPUJECT IM STA (10:32)
[2021-02-08] MEDS ORDERED: ONDANSETRON 4 MG/2 ML VIAL IM STA (10:33)
--- NOTE | 2021-02-08 10:35 | ED Physician Documentation ---
History of Present Illness - Stated complaint Stated Complaint: ABDOMINAL PX - Chief complaint Chief Complaint: Abd Pain - History obtained from History obtained from: Patient - Additonal information Additional information: Patient comes emergency department with chief complaint of left upper quadrant pain since yesterday. She states that sometimes it radiates into her left lower quadrant. Patient has had this pain before, sometimes with and sometimes without vomiting. She is currently somewhat nauseated but not actively vomiting. No fevers or chills. No diarrhea or blood in her stools. No dysuria. No history of diverticulitis or ulcers. Nothing makes better or worse. She states that over the course of time and having these episodes repeatedly, she has had multiple studies done and work-up, including CT scans, ultrasound multiple times, and HIDA scan, all of which have been negative. Patient states she is scheduled for an EGD in about a week, but was so uncomfortable that she decided to come in today for symptomatic relief. No other complaints at this time. Review of Systems Ten Systems: 10 systems reviewed and negative Constitutional: reports: Reviewed and negative Eyes: reports: Reviewed and negative Ears: reports: Reviewed and negative Nose: reports: Reviewed and negative Throat: reports: Reviewed and negative Cardiac: reports: Reviewed and negative Respiratory: reports: Reviewed and negative GI: reports: Abdominal Pain : reports: Reviewed and negative Skin: reports: Reviewed and negative Musculoskeletal: reports: Reviewed and negative Neurologic: reports: Reviewed and negative Psychiatric: reports: Reviewed and negative Endocrine: reports: Reviewed and negative Immunocompromised: reports: Reviewed and negative PD PAST MEDICAL HISTORY - Past Medical History Cardiovascular: None Respiratory: None Neuro: None Endocrine/Autoimmune: Type 2 diabetes 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 : Other HEENT: None Psych: Depression Musculoskeletal: Other Derm: Other - Past Surgical History Past Surgical History: Yes 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 HEENT: Tonsil/Adenoidectomy - Present Medications Home Medications: Ambulatory Orders Medication Instructions Recorded Confirmed Insulin Glargine [Lantus Solostar] 10 - 20 units SUBQ DAILY 04/01/20 02/08/21 Sitagliptin Phos/Metformin HCl 1 tab PO BID 04/01/20 02/08/21 [Janumet 50-1,000 mg Tablet] Insulin Aspart [NovoLOG] 2 - 10 unit SUBQ 04/06/20 02/08/21 0800,1200,1700,2100 #5 pen HYDROcod/ACETAM 5/325 [[place] 5/325] 1 - 2 tablet PO Q6H PRN #7 tablet 02/08/21 Ondansetron Odt [Zofran] 4 mg TL Q6H PRN #10 tablet 02/08/21 Venlafaxine ER [Effexor ER] 1 cap ORAL DAILY 02/08/21 02/08/21 - Allergies Allergies/Adverse Reactions: Allergies Allergy/AdvReac Type Severity Reaction Status Date / Time adhesive tape Allergy Rash Verified 02/08/21 09:06 latex Allergy Rash Verified 02/08/21 09:06 - Social History Does the pt smoke?: No Smoking Status: Never smoker Does the pt drink ETOH?: No Does the pt have substance abuse?: No - Immunizations Immunizations are current?: Yes - POLST Patient has POLST: No POLST Status: Full Code PD ED PE NORMAL - Vitals Vital signs reviewed: Yes - General General: Alert and oriented X 3, Well developed/nourished, Other (No distress, but patient looks uncomfortable.) - HEENT HEENT: Atraumatic, PERRL, EOMI, Moist mucous membranes - Neck Neck: Supple, no meningeal sign - Cardiac Cardiac: RRR, No murmur - Respiratory Respiratory: No respiratory distress, Clear bilaterally - Abdomen Abdomen: Soft, Non distended, Other (Tenderness left upper quadrant.) - Derm Derm: Normal color, Warm and dry, No rash - Extremities Extremities: No deformity, No edema - Neuro Neuro: Alert and oriented X 3, vehicle 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 2-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, Normal speech - Psych Psych: Normal mood, Normal affect Results - Vitals Vitals: Oxygen O2 Source Room air - Labs Labs: Laboratory Tests 02/08/21 02/08/21 02/08/21 09:10 09:19 09:19 WBC 11.7 H RBC 4.70 Hgb 13.9 Hct 42.6 MCV 90.6 MCH 29.6 MCHC 32.6 RDW 12.1 Plt Count 379 MPV 9.2 Neut # (Auto) 7.2 H Lymph # (Auto) 3.6 H [place] # (Auto) 0.5 Eos # (Auto) 0.3 Baso # (Auto) 0.1 Absolute Nucleated RBC 0.00 Nucleated RBC % 0.0 Sodium 136 Potassium 3.8 Chloride 98 L Carbon Dioxide 24 Anion Gap 14.0 H BUN 16 Creatinine 0.6 Estimated GFR (MDRD) 118 Glucose 244 H Calcium 9.3 Total Bilirubin 0.6 AST 80 H ALT 66 H Alkaline Phosphatase 178 H Total Protein 8.5 H Albumin 4.2 Globulin 4.3 H Albumin/Globulin Ratio 1.0 Lipase 33 Urine Color DARK YELLOW Urine Clarity CLEAR Urine pH 5.5 Ur Specific [place] >=1.030 H Urine Protein NEGATIVE Urine Glucose (UA) 250 H Urine Ketones TRACE Urine Occult Blood MODERATE H Urine Nitrite NEGATIVE Urine Bilirubin NEGATIVE Urine Urobilinogen 0.2 (NORMAL) Ur Leukocyte Esterase NEGATIVE Urine RBC 11-25 H Urine WBC 0-3 Ur Squamous Epith Cells MOD Squamous H Urine Crystals 11-25 Ca Oxalate Urine Bacteria Few Urine Mucus Few Strands Ur Microscopic Review INDICATED Urine Culture Comments NOT INDICATED Urine HCG, Qual NEGATIVE PD MEDICAL DECISION MAKING - ED course Complexity details: reviewed old records, reviewed results, re-evaluated patient, considered differential, d/w patient ED course: The patient was worked up with labs, which showed some elevation of her LFTs, but were otherwise unremarkable. The patient had previously had LFT elevations which should prompted the ultrasounds which have been repeatedly negative. I did not feel any imaging was indicated today, as this is all been done the patient does have an EGD scheduled. The patient was treated symptomatically and found to be feeling better. We have discussed the usual indications for return. Departure - Departure Disposition: 01 Home, Self Care Clinical Impression: Abdominal pain Qualifiers: Abdominal location: upper abdomen, unspecified Qualified Code(s): R10.10 - Upper abdominal pain, unspecified Condition: Stable Instructions: ED Abdominal Pain Female Non-Specific Abdominal Pain Prescriptions: HYDROcod/ACETAM 5/325 [[place] 5/325] 1 - 2 tablet PO Q6H PRN #7 tablet PRN Reason: Pain Ondansetron Odt [Zofran] 4 mg TL Q6H PRN #10 tablet PRN Reason: Nausea / Vomiting Comments: Your prescription has been electronically transmitted to [facility]'s pharmacy in [place]. Discharge Date/Time: 02/08/21 10:55
[2021-02-08 10:55] VITALS: BP 130/90
== END 2021-02-08 10:55 | disposition home or self-care (01) ==
LOC: ED 08:55
DX: R10.12 Left upper quadrant pain (principal); R94.5 Abnormal results of liver function studies
CPT/HCPCS: 36415; 80053; 81001; 81003; 81025; 83690; 85025; 87086; 96372; 99283; 99284

== ENCOUNTER 2021-05-28 08:47 | Emergency (ER) | payer OTHER ==
--- NOTE | 2021-05-28 09:10 | ED Physician Documentation ---
PD HPI ABD PAIN - Stated complaint Stated Complaint: ABD PX/NAUSEA/VOMITING - Chief complaint Chief Complaint: Abd Pain - History obtained from History obtained from: Patient - History of Present Illness Timing - onset: How many hours ago (4-5), Today Timing - duration: Hours (4-5) Timing - details: Abrupt onset, Still present Quality: Cramping, Aching, Pain Location: Epigastric Radiation: Upper back Improved by: No: Laying still, Vomiting Worsened by: No: Moving, Breathing Associated symptoms: Nausea, Vomiting. No: Fever, Hematemesis, Diarrhea, Constipation Similar symptoms before: No diagnosis (has had this several times in the past episodically with normal scans/ US/ labs/ HIDA in the past. No clear Dx. Has not had EGD, per patient.) Recently seen: Not recently seen Review of Systems Constitutional: denies: Fever, Chills Nose: denies: Rhinorrhea / runny nose, Congestion Throat: denies: Sore throat Respiratory: denies: Dyspnea, Cough GI: reports: Abdominal Pain, Nausea, Vomiting. 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 HEENT: Tonsil/Adenoidectomy - Present Medications Home Medications: Ambulatory Orders Medication Instructions Recorded Confirmed Insulin Glargine [Lantus Solostar] 10 - 20 units SUBQ DAILY 04/01/20 02/08/21 Sitagliptin Phos/Metformin HCl 1 tab PO BID 04/01/20 02/08/21 [Janumet 50-1,000 mg Tablet] Insulin Aspart [NovoLOG] 2 - 10 unit SUBQ 04/06/20 02/08/21 0800,1200,1700,2100 #5 pen HYDROcod/ACETAM 5/325 [[place] 5/325] 1 - 2 tablet PO Q6H PRN #7 tablet 02/08/21 Ondansetron Odt [Zofran] 4 mg TL Q6H PRN #10 tablet 02/08/21 Venlafaxine ER [Effexor ER] 1 cap ORAL DAILY 02/08/21 02/08/21 Promethazine Supp [Phenergan Supp] 25 mg [place] Q6H PRN #10 supp 05/28/21 - Allergies Allergies/Adverse Reactions: Allergies Allergy/AdvReac Type Severity Reaction Status Date / Time adhesive tape Allergy Rash Verified 05/28/21 08:54 latex Allergy Rash Verified 05/28/21 08:54 - Social History Does the pt smoke?: No Smoking Status: Never smoker Does the pt drink ETOH?: No Does the pt have substance abuse?: No - Immunizations Immunizations are current?: Yes - POLST Patient has POLST: No POLST Status: Full Code PD ED PE NORMAL - Vitals Vital signs reviewed: Yes - General General: Alert and oriented X 3, Well developed/nourished, Other (appears in distress with abd pain and dry heaving. ) - HEENT HEENT: PERRL, EOMI (no icterus.) - Neck Neck: Supple, no meningeal sign, No adenopathy - Cardiac Cardiac: No murmur. No: RRR (regular but tachycardic) - Respiratory Respiratory: Clear bilaterally - Abdomen Abdomen: Soft, Non distended, No organomegaly, Other (tender epigastric with guarding and percussion tenderness. ). No: Normal bowel sounds (increased) - Derm Derm: Normal color, Warm and dry - Extremities Extremities: No edema, No calf tenderness / cord - Neuro Neuro: Alert and oriented X 3, No motor deficit, Normal speech Results - Vitals Vitals: Vital Signs - 24 hr 05/28/21 05/28/21 08:52 10:54 Temperature 37.0 C 36.6 C Heart Rate 112 H 95 Respiratory 22 16 Rate Blood Pressure 124/81 H 117/87 H O2 Saturation 99 97 Oxygen O2 Source Room air - Labs Labs: Laboratory Tests 05/28/21 05/28/21 05/28/21 09:38 09:38 10:57 WBC 10.5 RBC 4.76 Hgb 14.4 Hct 43.2 MCV 90.8 MCH 30.3 MCHC 33.3 RDW 12.5 Plt Count 311 MPV 9.2 Neut # (Auto) 8.9 H Lymph # (Auto) 1.1 L [place] # (Auto) 0.4 Eos # (Auto) 0.1 Baso # (Auto) 0.0 Absolute Nucleated RBC 0.00 Nucleated RBC % 0.0 Sodium 134 L Potassium 3.9 Chloride 97 L Carbon Dioxide 23 Anion Gap 14.0 H BUN 15 Creatinine 0.6 Estimated GFR (MDRD) 118 Glucose 283 H Calcium 8.5 Total Bilirubin 0.8 AST 188 H ALT 100 H Alkaline Phosphatase 141 H Total Protein 7.7 Albumin 3.7 Globulin 4.0 Albumin/Globulin Ratio 0.9 L Lipase 38 Urine Color YELLOW Urine Clarity CLEAR Urine pH 6.0 Ur Specific [place] 1.025 Urine Protein NEGATIVE Urine Glucose (UA) 500 H Urine Ketones 40 H Urine Occult Blood NEGATIVE Urine Nitrite NEGATIVE Urine Bilirubin NEGATIVE Urine Urobilinogen 0.2 (NORMAL) Ur Leukocyte Esterase NEGATIVE Ur Microscopic Review NOT INDICATED Urine Culture Comments NOT INDICATED Urine Opiates Screen NEGATIVE Ur Oxycodone Screen NEGATIVE Urine Methadone Screen NEGATIVE Ur Propoxyphene Screen NEGATIVE Ur Barbiturates Screen NEGATIVE Ur Tricyclics Screen NEGATIVE Ur Phencyclidine Scrn NEGATIVE Ur Amphetamine Screen NEGATIVE U Methamphetamines Scrn NEGATIVE U Benzodiazepines Scrn NEGATIVE Urine Cocaine Screen NEGATIVE U Cannabinoids Screen NEGATIVE PD MEDICAL DECISION MAKING - ED course Complexity details: re-evaluated patient (markedly improved with meds and fluids IV: Inapsine, Toradol, and fentanyl 25 mcg. ), considered differential, d/w patient Departure - Departure Disposition: 01 Home, Self Care Clinical Impression: Nausea and vomiting, Acute upper abdominal pain Condition: Stable Record reviewed to determine appropriate education?: Yes Instructions: ED Nausea Vomiting Follow-Up: EVELIO HALEY MD [Primary Care Provider] - Prescriptions: Promethazine Supp [Phenergan Supp] 25 mg [place] Q6H PRN #10 supp PRN Reason: Nausea / Vomiting Comments: Small frequent fluids today and bland food. Progress diet as able. Use ondansetron (Zofran) every 4-6 hours if needed for nausea. Alternatively promethazine suppository if vomiting and unable to keep down the oral medicine. Tylenol or ibuprofen if needed for pains. Recheck if not improved maintaining oral intake, or recurrence of persistent vomiting or pain again through the day or tomorrow. Discharge Date/Time: 05/28/21 11:10
[2021-05-28] MEDS ORDERED: DROPERIDOL 5 MG/2 ML VIAL IVP STA (09:32)
[2021-05-28] MEDS ORDERED: SODIUM CHLORIDE 0.9% 1,000 ML IV STA (09:32)
[2021-05-28] MEDS ORDERED: fentaNYL 100 MCG/2 ML VIAL IVP STA (09:32)
[2021-05-28] MEDS ORDERED: KETOROLAC 15 MG/ML VIAL IVP STA (09:32)
[2021-05-28 09:44] LABS: BASOPHILS % (AUTO) 0.3 %; EOSINOPHILS # (AUTO) 0.1 10^3/uL (0.0-0.7); EOSINOPHILS % (AUTO) 0.8 %; HCT - HEMATOCRIT 43.2 % (37.0-47.0); HGB - HEMOGLOBIN 14.4 g/dL (12.0-16.0); LYMPHOCYTES # (AUTO) 1.1 10^3/uL (1.5-3.5); LYMPHOCYTES % (AUTO) 10.7 %; MEAN CORPUSCULAR HEMOGLOBIN 30.3 pg (27.0-31.0); MEAN CORPUSCULAR HGB CONC 33.3 g/dL (32.0-36.0); MEAN CORPUSCULAR VOLUME 90.8 fL (81.0-99.0); MEAN PLATELET VOLUME 9.2 fL (7.9-10.8); MONOCYTES # (AUTO) 0.4 10^3/uL (0.0-1.0); MONOCYTES % (AUTO) 3.3 %; NEUTROPHILS # (AUTO) 8.9 10^3/uL (1.5-6.6); NEUTROPHILS % (AUTO) 84.4 %; PLT - PLATELET COUNT 311 10^3/uL (130-450); RED BLOOD COUNT 4.76 10^6/uL (4.20-5.40); RED CELL DISTRIBUTION WIDTH 12.5 % (12.0-15.0); WHITE BLOOD COUNT 10.5 x10^3/uL (4.8-10.8)
[2021-05-28 10:17] LABS: ALBUMIN 3.7 g/dL (3.2-5.5); ALBUMIN/GLOBULIN RATIO 0.9 (1.0-2.2); BILIRUBIN,TOTAL 0.8 mg/dL (0.2-1.0); CALCIUM 8.5 mg/dL (8.5-10.3); CREATININE 0.6 mg/dL (0.4-1.0); POTASSIUM 3.9 mmol/L (3.5-5.0); TOTAL PROTEIN 7.7 g/dL (6.7-8.2)
[2021-05-28 10:56] VITALS: BP 117/87
[2021-05-28 11:02] LABS: MUDS CUTOFF CONCENTRATIONS CUTOFF CONC BELOW:
[2021-05-28 11:05] LABS: BILIRUBIN,URINE NEGATIVE (NEGATIVE); GLUCOSE, URINE (UA) 500 mg/dL (NEGATIVE); KETONES,URINE (UA) 40 mg/dL (NEGATIVE); LEUKOCYTE ESTERASE, URINE NEGATIVE (NEGATIVE); NITRITE,URINE NEGATIVE (NEGATIVE); OCCULT BLOOD,URINE NEGATIVE (NEGATIVE); PROTEIN,URINE NEGATIVE (NEGATIVE); UROBILINOGEN,URINE 0.2 (NORMAL) E.U./dL (NORMAL)
[2021-05-28 11:16] LABS: AMPHETAMINE SCREEN,URINE NEGATIVE (NEGATIVE); BARBITURATE SCREEN,UR NEGATIVE (NEGATIVE); BENZODIAZEPINES SCREEN, URINE NEGATIVE (NEGATIVE); CLARITY,URINE CLEAR (CLEAR); COCAINE SCREEN URINE NEGATIVE (NEGATIVE); METHADONE SCREEN, URINE NEGATIVE (NEGATIVE); METHAMPHETAMINES SCREEN, URINE NEGATIVE (NEGATIVE); OPIATE SCREEN, URINE NEGATIVE (NEGATIVE); OXYCODONE SCREEN, URINE NEGATIVE (NEGATIVE); PROPOXYPHENE SCREEN, URINE NEGATIVE (NEGATIVE); THC CANNABINOID SCREEN, URINE NEGATIVE (NEGATIVE); TRICYCLIC ANTIDEPRESSANT,URINE NEGATIVE (NEGATIVE)
== END 2021-05-28 11:10 | disposition home or self-care (01) ==
LOC: ED 08:47
DX: R11.2 Nausea with vomiting, unspecified (principal); R10.13 Epigastric pain; E11.9 Type 2 diabetes mellitus without complications; Z79.4 Long term (current) use of insulin
CPT/HCPCS: 36415; 80053; 80306; 81001; 81003; 83690; 85025; 87086; 96361; 96374; 96375; 99284

== ENCOUNTER 2022-12-20 18:30 | Emergency (ER) | payer OTHER ==
[2022-12-20 18:51] VITALS: O2SAT 98
[2022-12-20] MEDS ORDERED: SODIUM CHLORIDE 0.9% 1,000 ML IV STA (20:03)
--- NOTE | 2022-12-20 20:03 | ED Physician Documentation ---
History of Present Illness - Stated complaint Stated Complaint: HIGH GLUCOSE,BILAT ANKLE PX - Chief complaint Chief Complaint: General - History obtained from History obtained from: Patient - Additonal information Additional information: 32-year-old female with history of insulin-dependent diabetes presents by private vehicle from home for 1 month of gradually worsening ankle pain. Pain initially began only on the left-hand side, however began to include her right ankle as well. Reports it is a "wphk-ayw-nyejyph" sensation, worse with movement. She contacted her primary care doctor's nursing line, and they referred her to the emergency department for evaluation. Patient states that her blood sugars have been very poorly controlled with her average blood sugar being 270. Most recent A1c was 12 Review of Systems Constitutional: denies: Fever, Chills Cardiac: denies: Chest pain / pressure, Palpitations Respiratory: denies: Dyspnea, Cough, Wheezing GI: denies: Abdominal Pain, Nausea, Vomiting Musculoskeletal: reports: Joint pain. 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 : Other HEENT: None Psych: Depression Musculoskeletal: Other Derm: Other - Past Surgical History Past Surgical History: Yes Ortho: Other /JOURNEYMAN WELDER: section HEENT: Tonsil/Adenoidectomy - Present Medications Home Medications: Ambulatory Orders Medication Instructions Recorded Confirmed Insulin Glargine [Lantus Solostar] 10 - 20 units SUBQ DAILY 04/01/20 02/08/21 Sitagliptin Phos/Metformin HCl 1 tab PO BID 04/01/20 02/08/21 [Janumet 50-1,000 mg Tablet] Insulin Aspart [NovoLOG] 2 - 10 unit SUBQ 04/06/20 02/08/21 0800,1200,1700,2100 #5 pen HYDROcod/ACETAM 5/325 [[place] 5/325] 1 - 2 tablet PO Q6H PRN #7 tablet 02/08/21 Ondansetron Odt [Zofran] 4 mg TL Q6H PRN #10 tablet 02/08/21 Venlafaxine ER [Effexor ER] 1 cap ORAL DAILY 02/08/21 02/08/21 Promethazine Supp [Phenergan Supp] 25 mg NV Q6H PRN #10 supp 05/28/21 Gabapentin [Neurontin] 300 mg PO TID #90 cap 12/20/22 - Allergies Allergies/Adverse Reactions: Allergies Allergy/AdvReac Type Severity Reaction Status Date / Time adhesive tape Allergy Rash Verified 05/28/21 08:54 latex Allergy Rash Verified 05/28/21 08:54 - Social History Does the pt smoke?: No Smoking Status: Never smoker Does the pt drink ETOH?: No Does the pt have substance abuse?: No - Immunizations Immunizations are current?: Yes - POLST Patient has POLST: No POLST Status: Full Code PD ED PE NORMAL - Vitals Vital signs reviewed: Yes - General General: Alert and oriented X 3, No acute distress, Well developed/nourished - HEENT HEENT: Atraumatic - Cardiac Cardiac: RRR, Strong equal pulses - Respiratory Respiratory: No respiratory distress, Clear bilaterally - Abdomen Abdomen: Soft, Non tender, Non distended - Back Back: No CVA TTP, No spinal TTP - Derm Derm: Normal color, Warm and dry, No rash - Extremities Extremities: No deformity, No tenderness to palpate, Normal ROM s pain, No edema, No calf tenderness / cord, Other (pain wth movement of bilateral ankles. 2+ DP pulses bilaterally) - Neuro Neuro: Alert and oriented X 3, sourcing coordinator 2-12 intact, No motor deficit, No sensory deficit, Normal speech - Psych Psych: Normal mood, Normal affect Results - Vitals Vitals: Vital Signs - 24 hr 12/20/22 12/20/22 18:37 21:18 Temperature 37.5 C 37.0 C Heart Rate 100 88 Respiratory 20 18 Rate Blood Pressure 137/97 H 130/88 H O2 Saturation 98 98 Oxygen O2 Source Room air - Labs Labs: Laboratory Tests 12/20/22 12/20/22 12/20/22 18:41 20:09 20:09 WBC 13.9 H RBC 4.77 Hgb 13.6 Hct 42.2 MCV 88.5 MCH 28.5 MCHC 32.2 RDW 11.9 L Plt Count 412 MPV 9.0 Neut # (Auto) 8.4 H Lymph # (Auto) 4.6 H [place] # (Auto) 0.7 Eos # (Auto) 0.1 Baso # (Auto) 0.1 Absolute Nucleated RBC 0.00 Nucleated RBC % 0.0 Sodium 133 L Potassium 3.9 Chloride 99 L Carbon Dioxide 25 Anion Gap 9.0 BUN 15 Creatinine 0.5 L Estimated GFR (MDRD) 144 Glucose 299 H POC Whole Bld Glucose 304 H Uric Acid Calcium 9.4 12/20/22 20:09 WBC RBC Hgb Hct MCV MCH MCHC RDW Plt Count MPV Neut # (Auto) Lymph # (Auto) [place] # (Auto) Eos # (Auto) Baso # (Auto) Absolute Nucleated RBC Nucleated RBC % Sodium Potassium Chloride Carbon Dioxide Anion Gap BUN Creatinine Estimated GFR (MDRD) Glucose POC Whole Bld Glucose Uric Acid 3.3 Calcium PD Medical Decision Making - ED course Complexity details: reviewed results, re-evaluated patient, considered differential, d/w patient ED course: 1 month of gradually worsening bilateral lower extremity pain. Patient's description of pain is well as history of very poorly controlled diabetes is concerning for possible development of neuropathy. Patient is neurovascularly intact at this time. Laboratory work is significant for elevated blood glucose, kidney function normal. Patient has liver function panel from 12/10/22 taken at her dermatologists office that show normal liver function. We will trial patient on gabapentin for pain. She was strongly encouraged to take better care of her glucose and instructed on the long-term side effects of uncontrolled blood sugars including limb loss. Patient will follow-up with her primary care physician. Departure - Departure Disposition: 01 Home, Self Care Clinical Impression: Hyperglycemia, Paresthesias Condition: Stable Instructions: Hyperglycemia, ED Neuropathy Peripheral Prescriptions: Gabapentin [Neurontin] 300 mg PO TID #90 cap Comments: Today you are seen for bilateral ankle pain and elevated blood sugars at home. Your laboratory work confirms that you do have elevated blood glucose, but your kidney function is normal. Your x-rays did not show any obvious reason for your ankle pain. I am very concerned however that this pain may be the development of diabetic neuropathy. It is extremely important that you control your blood sugars at home to prevent worsening of your pain. Please make sure that you keep your follow-up appointment with your primary care doctor as scheduled. I am discharging you on a medication called gabapentin, which sometimes helps with neuropathy Forms: PCP List Discharge Date/Time: 12/20/22 21:18
[2022-12-20 20:13] LABS: BASOPHILS # (AUTO) 0.1 10^3/uL (0.0-0.1); BASOPHILS % (AUTO) 0.4 %; EOSINOPHILS # (AUTO) 0.1 10^3/uL (0.0-0.7); EOSINOPHILS % (AUTO) 0.7 %; HCT - HEMATOCRIT 42.2 % (37.0-47.0); HGB - HEMOGLOBIN 13.6 g/dL (12.0-16.0); LYMPHOCYTES # (AUTO) 4.6 10^3/uL (1.5-3.5); MEAN CORPUSCULAR HEMOGLOBIN 28.5 pg (27.0-31.0); MEAN CORPUSCULAR HGB CONC 32.2 g/dL (32.0-36.0); MEAN CORPUSCULAR VOLUME 88.5 fL (81.0-99.0); MONOCYTES # (AUTO) 0.7 10^3/uL (0.0-1.0); MONOCYTES % (AUTO) 5.3 %; NEUTROPHILS # (AUTO) 8.4 10^3/uL (1.5-6.6); NEUTROPHILS % (AUTO) 60.3 %; PLT - PLATELET COUNT 412 10^3/uL (130-450); RED BLOOD COUNT 4.77 10^6/uL (4.20-5.40); RED CELL DISTRIBUTION WIDTH 11.9 % (12.0-15.0); WHITE BLOOD COUNT 13.9 x10^3/uL (4.8-10.8)
--- NOTE | 2022-12-20 20:25 | XRAY Report ---
PROCEDURE: Ankle 3 View BILAT INDICATIONS: DIABETIC/PAIN/SWELLING TECHNIQUE: 3 views of the right and left ankle were acquired. COMPARISON: None. FINDINGS: Bones: No fractures or dislocations. Ankle mortise is normally aligned. No suspicious bony lesions . Soft tissues: Possible right tibiotalar joint effusion. IMPRESSION: No acute bony abnormality. If there remains a high clinical concern for fracture, consider cross-sect ional imaging now. If pain persists, consider repeat x-ray in 10-14 days or cross-sectional imaging. Possible right tibiotalar fusion. Reviewed by: Sergio Owens MD on 12/20/2022 8:23 PM PDT Approved by: Sergio Owens MD on 12/20/2022 8:23 PM PDT Station ID: [id number]
[2022-12-20 20:32] LABS: CALCIUM 9.4 mg/dL (8.5-10.3); CREATININE 0.5 mg/dL (0.6-1.3); POTASSIUM 3.9 mmol/L (3.5-4.5)
[2022-12-20] MEDS ORDERED: GABAPENTIN 100 MG CAPSULE PO STA (20:53)
[2022-12-20 21:26] VITALS: BP 130/88
== END 2022-12-20 21:18 | disposition home or self-care (01) ==
LOC: ED 18:30
DX: R20.2 Paresthesia of skin (principal); E11.65 Type 2 diabetes mellitus with hyperglycemia; Z79.4 Long term (current) use of insulin; Z79.84 Long term (current) use of oral hypoglycemic drugs
CPT/HCPCS: 36415; 73610; 80048; 84550; 85025; 99284; A9270

== ENCOUNTER 2023-01-05 08:54 | Emergency (ER) | payer OTHER ==
[2023-01-05 09:33] VITALS: O2SAT 100
--- NOTE | 2023-01-05 10:31 | XRAY Report ---
PROCEDURE: Knee 3 View LT INDICATIONS: pain TECHNIQUE: 3 views of the knee(s) were acquired. COMPARISON: 04/10/2020, 04/01/2020 FINDINGS: Bones: No fractures or dislocations. No suspicious bony lesions. There is mild medial femorotibial joint space narrowing, with associated degenerative change with subchondral sclerosis and osteophyte formation. The knee joint spaces are otherwise well preserved. Soft tissues: There is a small knee joint effusion. No suspicious soft tissue calcifications or mass es. IMPRESSION: Small joint effusion, without an acute abnormality seen by plain film. Mild medial femorotibial joint space narrowing again seen. If it would be helpful for clinical management decision making, please consider a dedicated, schedule d knee MRI for further evaluation (assuming that there is no contraindication). Reviewed by: Hardeep Rivera MD on 01/05/2023 9:[address] [facility] Approved by: Hardeep Rivera MD on 01/05/2023 9:[address] [facility] Station ID: [id number]
--- NOTE | 2023-01-05 10:31 | XRAY Report ---
PROCEDURE: Ankle 3 View LT INDICATIONS: pain TECHNIQUE: 3 views of the ankle were acquired. COMPARISON: 12/20/2022 FINDINGS: Bones: No fractures or dislocations. Ankle mortise is normally aligned. No suspicious bony lesions . The talar dome demonstrates an unremarkable appearance. Soft tissues: No tibiotalar joint effusion. Achilles tendon appears normal. IMPRESSION: No significant plain film abnormality is seen. Reviewed by: Hardeep Rivera MD on 01/05/2023 9:30 AM [facility] Approved by: Hardeep Rivera MD on 01/05/2023 9:30 AM [facility] Station ID: [id number]
--- NOTE | 2023-01-05 10:44 | ED Physician Documentation ---
PD HPI LOWER EXT INJURY - Stated complaint Stated Complaint: LT ANKLE/LEG PX - Chief complaint Chief Complaint: Ext Problem - History obtained from History obtained from: Patient - Additional information Additional information: Patient is a 32-year-old female presenting for evaluation of left ankle pain and swelling since last night. She is unsure of any known trauma. She states that she was has some swelling in this ankle as she has had prior surgery to it but it seems worse this morning. She also reports feeling pain in the left knee and feels that it is stiff. She does have a history of a septic knee joint in the past after having had a fall and contusion to the site. Denies again trauma to the knee. Denies fever. She is an insulin-dependent diabetic. Denies IV drug use. 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 HEENT: Tonsil/Adenoidectomy - Present Medications Home Medications: Ambulatory Orders Medication Instructions Recorded Confirmed Insulin Glargine [Lantus Solostar] 10 units SUBQ BID 04/01/20 01/05/23 Sitagliptin Phos/Metformin HCl 1 tab PO BID 04/01/20 01/05/23 [Janumet 50-1,000 mg Tablet] Insulin Aspart [NovoLOG] 2 - 10 unit SUBQ 04/06/20 01/05/23 0800,1200,1700,2100 #5 pen Gabapentin [Neurontin] 300 mg PO TID PRN 01/05/23 01/05/23 HYDROcod/ACETAM 5/325 [[place] 5/325] 1 tablet PO Q6H PRN #10 tablet 01/05/23 Norgestimate-Ethinyl Estradiol 1 tab ORAL DAILY 01/05/23 01/05/23 [Tri-Sprintec Tablet] - Allergies Allergies/Adverse Reactions: Allergies Allergy/AdvReac Type Severity Reaction Status Date / Time adhesive tape Allergy Rash Verified 11/05/23 09:32 latex Allergy Rash Verified 01/05/23 09:32 - Social History Does the pt smoke?: No Smoking Status: Never smoker Does the pt drink ETOH?: No Does the pt have substance abuse?: No - Immunizations Immunizations are current?: Yes - POLST Patient has POLST: No POLST Status: Full Code PD ED PE NORMAL - General General: Alert and oriented X 3, No acute distress, Well developed/nourished - HEENT HEENT: Atraumatic - Neck Neck: Supple, no meningeal sign - Cardiac Cardiac: Strong equal pulses - Respiratory Respiratory: No respiratory distress - Derm Derm: Warm and dry - Extremities Extremities: Other (Mild swelling to the left knee and left ankle with no erythema or warmth to the joints. Pain on range of motion of left knee but able to flex and extend. Pain on range of motion of left ankle primarily posteriorl y.; Compartments of extremity are soft) - Neuro Neuro: No motor deficit, No sensory deficit Results - Vitals Vitals: Vital Signs - 24 hr 01/05/23 01/05/23 09:28 10:57 Temperature 98.6 C H 36 C L Heart Rate 99 74 Respiratory 20 14 Rate Blood Pressure 124/88 H 113/87 H O2 Saturation 100 100 Oxygen O2 Source Room air PD Medical Decision Making - ED course Complexity details: reviewed results, re-evaluated patient, d/w patient ED course: Patient is a 32-year-old presenting for evaluation of left knee and left ankle pain. Cannot recall any specific trauma. Reports pain with ambulation. No significant deformities. No redness, warmth or fevers to suggest a septic joint. X-rays were obtained of the knee as well as ankle which I reviewed I see no fracture or dislocation. At this time I do not see an indication for arthrocentesis and recommend trial of supportive care. Patient is counseled on strict return precautions. Departure - Departure Disposition: 01 Home, Self Care Clinical Impression: Left ankle pain, Left knee pain Condition: Stable Instructions: ED Knee Pain UKO, ED Sprain Ankle Prescriptions: HYDROcod/ACETAM 5/325 [[place] 5/325] 1 tablet PO Q6H PRN #10 tablet PRN Reason: Pain Comments: Your knee and ankle x-rays do not show any broken or out of place bones. You do have a small effusion present in your left knee. At this time I do not see signs of a joint infection such as redness or warmth to the joints. However I would recommend close follow-up if your symptoms are not improving and certainly return to the ER if they are getting any worse. I have sent a small amount of narcotic pain medication to [facility] in [place]. I am prescribing a short course of narcotic pain medication for you. These are potentially dangerous and addictive medications that should be used carefully. These medications may constipate you. Take an dkrz-xvw-xzayybh stool softener (docusate) twice daily with plenty of water while taking these medications. If you go 24 hours without a bowel movement, take izwj-wxh-cgqjevt miralax, per package instructions. Do not drink or drive while taking these medications. If you received narcotic or sedating medications while in the emergency department, do not drive for 24 hours. Store this medication in a safe, secure place and out of reach of children. It is a violation of federal law to give or sell this medication to another person or to use in a manner other than prescribed. The ED will not refill narcotic prescriptions, including prescriptions lost or stolen. To dispose of unwanted medications: 1. [facility] [address] in [place] has a medication drop box. They accept prescription medications (in pill form) Friday through Friday 9:00 a.m. to 5:00 p.m. 2. The [facility] [employer] accepts prescription medications (in pill form only) for disposal year round. Call for more information. 3. Contact the [facility] for the next [facility] sponsored prescription drug collection event. , [phone], or [phone]; Note that many narcotic pain relievers also contain Tylenol/acetaminophen. Please ensure that your total dose of acetaminophen from all sources does not exceed 3 g (3000 mg) per day. Forms: PCP List Discharge Date/Time: 01/05/23 10:57
[2023-01-05 11:06] VITALS: BP 113/87
== END 2023-01-05 10:57 | disposition home or self-care (01) ==
LOC: ED 08:54
DX: M25.572 Pain in left ankle and joints of left foot (principal); M25.562 Pain in left knee; E11.9 Type 2 diabetes mellitus without complications; Z79.4 Long term (current) use of insulin; Z79.899 Other long term (current) drug therapy; Z79.3 Long term (current) use of hormonal contraceptives; Z91.040 Latex allergy status
CPT/HCPCS: 99283

== ENCOUNTER 2023-01-07 12:11 | Inpatient (IN) | payer OTHER ==
[2023-01-07 12:57] LABS: BASOPHILS % (AUTO) 0.3 %; EOSINOPHILS # (AUTO) 0.1 10^3/uL (0.0-0.7); EOSINOPHILS % (AUTO) 0.5 %; HCT - HEMATOCRIT 38.3 % (37.0-47.0); HGB - HEMOGLOBIN 12.2 g/dL (12.0-16.0); LYMPHOCYTES # (AUTO) 3.2 10^3/uL (1.5-3.5); LYMPHOCYTES % (AUTO) 28.8 %; MEAN CORPUSCULAR HEMOGLOBIN 28.6 pg (27.0-31.0); MEAN CORPUSCULAR HGB CONC 31.9 g/dL (32.0-36.0); MEAN CORPUSCULAR VOLUME 89.7 fL (81.0-99.0); MEAN PLATELET VOLUME 8.7 fL (7.9-10.8); MONOCYTES # (AUTO) 0.6 10^3/uL (0.0-1.0); MONOCYTES % (AUTO) 5.3 %; NEUTROPHILS # (AUTO) 7.3 10^3/uL (1.5-6.6); NEUTROPHILS % (AUTO) 64.7 %; PLT - PLATELET COUNT 495 10^3/uL (130-450); RED BLOOD COUNT 4.27 10^6/uL (4.20-5.40); RED CELL DISTRIBUTION WIDTH 12.2 % (12.0-15.0); WHITE BLOOD COUNT 11.2 x10^3/uL (4.8-10.8)
[2023-01-07 13:14] LABS: ALBUMIN 3.8 g/dL (3.2-5.5); ALBUMIN/GLOBULIN RATIO 0.8 (1.0-2.2); BILIRUBIN,TOTAL 0.3 mg/dL (0.2-1.0); CALCIUM 9.6 mg/dL (8.5-10.3); CREATININE 0.5 mg/dL (0.6-1.3); CRP - C-REACTIVE PROTEIN 11.2 mg/dL (<0.5); POTASSIUM 3.9 mmol/L (3.5-4.5); TOTAL PROTEIN 8.6 g/dL (6.4-8.9)
[2023-01-07] MEDS ORDERED: HYDROcod/ACETAM 5/325 MG TABLET PO STA (14:56)
--- NOTE | 2023-01-07 19:35 | ED Physician Documentation ---
History of Present Illness - Stated complaint Stated Complaint: LT KNEE PX - Chief complaint Chief Complaint: Ext Problem - History obtained from History obtained from: Patient - History of Present Illness Timing: How many days ago (2) Pain level now: 10 - Additonal information Additional information: HPI from patient. Note that my shift started at 7 PM, patient brought from waiting room to ED room 3 at approximately 7:30 PM. Patient says that 2 days ago, she had gradual onset of left knee swelling, atraumatic. Eventually, as the swelling progressed during the day, it became associated with increasing, constant pain. The pain and swelling continued to progress overnight and during the day today. The pain is worse with attempts to bare weight. She had similar symptoms in 2020 (same knee) which led to diagnosis of septic arthritis, requiring OR washout. Patient denies fever. Review of Systems Constitutional: reports: Chills, Sweats. 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 CLERK: section HEENT: Tonsil/Adenoidectomy - Present Medications Home Medications: Ambulatory Orders Medication Instructions Recorded Confirmed Insulin Glargine [Lantus Solostar] 10 units SUBQ BID 04/01/20 01/07/23 Sitagliptin Phos/Metformin HCl 1 tab PO BID 04/01/20 01/07/23 [Janumet 50-1,000 mg Tablet] Insulin Aspart [NovoLOG] 2 - 10 unit SUBQ 04/06/20 01/07/23 0800,1200,1700,2100 #5 pen Gabapentin [Neurontin] 300 mg PO TID PRN 01/05/23 01/07/23 HYDROcod/ACETAM 5/325 [[place] 5/325] 1 tablet PO Q6H PRN #10 tablet 01/05/23 01/07/23 Norgestimate-Ethinyl Estradiol 1 tab ORAL DAILY 01/05/23 01/07/23 [Tri-Sprintec Tablet] - Allergies Allergies/Adverse Reactions: Allergies Allergy/AdvReac Type Severity Reaction Status Date / Time adhesive tape Allergy Rash Verified 01/07/23 12:33 latex Allergy Rash Verified 01/07/23 12:33 - Social History Does the pt smoke?: No Smoking Status: Never smoker Does the pt drink ETOH?: No Does the pt have substance abuse?: No - Immunizations Immunizations are current?: Yes - POLST Patient has POLST: No POLST Status: Full Code PD ED PE NORMAL - Vitals Vital signs reviewed: Yes - General General: Alert and oriented X 3, Well developed/nourished, Other (crying at times due to severity of pain) - Cardiac Cardiac: No murmur PD ED PE EXPANDED - Cardiac Cardiac: Tachy - Extremities Extremities: Tenderness, Limited ROM, Swelling, Joint effusion, Other (left knee is swollen, TTP, very limited ROM, and hot to touch. no erythema) Results - Vitals Vitals: Vital Signs - 24 hr 01/07/23 01/07/23 01/07/23 12:33 19:47 20:32 Temperature 36.8 C Heart Rate 113 H 102 H 100 Respiratory 18 18 18 Rate Blood Pressure 111/76 114/81 H 129/93 H O2 Saturation 100 99 99 01/07/23 01/08/23 01/08/23 22:49 00:00 02:00 Temperature Heart Rate 60 86 91 Respiratory 18 15 18 Rate Blood Pressure 135/87 H 147/109 H 124/86 H O2 Saturation 95 98 98 01/08/23 01/08/23 04:00 06:00 Temperature Heart Rate 89 80 Respiratory 18 16 Rate Blood Pressure 121/86 H O2 Saturation 97 97 Oxygen O2 Source Room air - Labs Labs: Microbiology 01/07/23 20:26 Body Fluid Culture - Preliminary Synovial Fluid Laboratory Tests 01/07/23 01/07/23 01/07/23 12:52 12:52 12:52 WBC 11.2 H RBC 4.27 Hgb 12.2 Hct 38.3 MCV 89.7 MCH 28.6 MCHC 31.9 L RDW 12.2 Plt Count 495 H MPV 8.7 Neut # (Auto) 7.3 H Lymph # (Auto) 3.2 [place] # (Auto) 0.6 Eos # (Auto) 0.1 Baso # (Auto) 0.0 Absolute Nucleated RBC 0.00 Nucleated RBC % 0.0 ESR 96 H Sodium 134 L Potassium 3.9 Chloride 99 L Carbon Dioxide 26 Anion Gap 9.0 BUN 11 Creatinine 0.5 L Estimated GFR (MDRD) 144 Glucose 298 H POC Whole Bld Glucose Calcium 9.6 Total Bilirubin 0.3 AST 10 ALT 8 L Alkaline Phosphatase 130 H C-Reactive Protein 11.2 H Total Protein 8.6 Albumin 3.8 Globulin 4.8 H Albumin/Globulin Ratio 0.8 L Lipase 22 Fluid Source Fluid Color Fluid Clarity Fluid WBC Fluid RBC Fluid Neutrophils % Fluid Lymphocytes % Fluid Macrophages % Fld Mesothelial Cell % Fluid Crystals 01/07/23 01/07/23 01/08/23 20:26 20:26 08:35 WBC RBC Hgb Hct MCV MCH MCHC RDW Plt Count MPV Neut # (Auto) Lymph # (Auto) [place] # (Auto) Eos # (Auto) Baso # (Auto) Absolute Nucleated RBC Nucleated RBC % ESR Sodium Potassium Chloride Carbon Dioxide Anion Gap BUN Creatinine Estimated GFR (MDRD) Glucose POC Whole Bld Glucose 229 H Calcium Total Bilirubin AST ALT Alkaline Phosphatase C-Reactive Protein Total Protein Albumin Globulin Albumin/Globulin Ratio Lipase Fluid Source SYNOVIAL Fluid Color STRAW Fluid Clarity CLOUDY Fluid WBC 50721 Fluid RBC 2000 Fluid Neutrophils % 80 Fluid Lymphocytes % 15 Fluid Macrophages % 5 Fld Mesothelial Cell % Not Reportable Fluid Crystals NONE SEEN Procedures - Arthrocentesis Joint: Left Preparation: Sterile prep and drape Anesthesia: Lidocaine 1% Fluid: Sent for cell count, Cloudy, Sent for crystals, Sent for culture, Fluid obtained - cc (30), Sent for gram stain Aftercare: No complications, Patient tolerated well PD Medical Decision Making - ED course Complexity details: reviewed old records (reviewed ED and inpatient records from 2020 when she was admitted for septic arthritis), reviewed results, re-evaluated patient, considered differential, d/w patient ED course: Patient has minimal leukocytosis on CBC (WBC 11.2). Platelets are high at 495. Significantly elevated ESR (96), CRP (11.2). Synovial fluid analysis is as follows 38,900 white blood cells 2000 red blood cells 80% neutrophils No crystals Gram stain: Many WBC, no organisms seen. I discussed this case with Dr. Landeros (on-call orthopedic surgery for [facility]). Included in the discussion are the results of the blood tests including the inf lammatory markers, as well as the results of the synovial fluid analysis and Gram stain. His recommendation is admit to [facility] hospitalist service, as he is not convinced this is a septic joint given that there were no organisms seen on the Gram stain. His recommendation is to wait for results of blood cultures and synovial fluid cultures before a decision can be made regarding taking patient to OR for flush out of the joint. 22:59 I contacted the telehealth physician for [facility]. He does not feel comfortable admitting the patient to the hospitalist service due to concern for septic joint. He says the patient would be appropriate for admission to the orthopedic service with hospitalist as consult or else to transfer if the orthopedic surgeon is not comfortable with that plan. I will recontact the orthopedic surgeon to discuss this with him. 23:40 I got back in contact with Dr. Landeros to update him regarding the situation. Dr. Landeros does not feel comfortable admitting to the orthopedic service. I discussed with him that I would be calling other facilities in this case to see if I can get the patient transferred to another hospital for admission. There are no beds available at any of the [facility] that were subsequently contacted. Plan is to hold patient in the emergency department into the morning when I will request Dr. Landeros to evaluate patient in the ED and he can discuss/coordinate with the hospitalist regarding admission. 03:30 I discussed this case with [facility]. They confirmed that there are no beds available at any [facility] at this time. Note that patient has received IV vancomycin and ceftriaxone earlier in stay subsequent to synovial fluid and blood cultures being obtained. 06:[address] Landeros and requested that he evaluate patient in the ED this morning. He says he will be in to evaluate patient and will then discussed this case with the hospitalist to coordinate plan for admission to [facility] if appropriate. Departure - Departure Disposition: 66 [facility] DC/Xfer Clinical Impression: Inflammatory arthritis Condition: Good Forms: PCP List
[2023-01-07] MEDS ORDERED: lidocaine 1% 20 ML MDV SUBQ STA (19:51)
[2023-01-07] MEDS ORDERED: HYDROmorphone 1 MG/ML CARPUJECT IVP STA (19:54)
[2023-01-07] MEDS ORDERED: MORPHINE 2 MG/ML CARPUJECT IVP STA ×2 (20:00→23:34)
[2023-01-07 20:59] LABS: CC,BF WBC 38900 /mm^3
[2023-01-07 21:00] LABS: BF CLARITY CLOUDY; BF COLOR STRAW; BF SOURCE SYNOVIAL; CC,BF RBC 2000 /mm^3
[2023-01-07 21:28] LABS: LYMPHOCYTES %,BODY FLUID 15 %; MACROPHAGES %,BODY FLUID 5 %; NEUTROPHILS %, BF 80 %
[2023-01-08] MEDS ORDERED: VANCOMYCIN INJ 1 GM in SODIUM CHLORIDE 0.9% 500 ML IV STA (00:06)
[2023-01-08] MEDS ORDERED: cefTRIAXone 1 GM VIAL IVP STA (00:06)
[2023-01-08] MEDS ORDERED: VANCOMYCIN 1 GM VIAL ONE (00:35)
[2023-01-08] MEDS ORDERED: MORPHINE 2 MG/ML CARPUJECT IVP STA ×2 (02:13→05:17)
[2023-01-08] MEDS ORDERED: ONDANSETRON 4 MG/2 ML VIAL IVP STA ×3 (02:38→13:25)
[2023-01-08] MEDS ORDERED: oxyCODONE 5 MG TABLET PO STA ×2 (05:17→10:20)
--- NOTE | 2023-01-08 08:10 | ED Physician Documentation ---
ED Addendum - Addendum Addendum: 01/08/23 08:08 Care assumed at shift change. Patient is boarding in the emergency department awaiting orthopedic surgery evaluation this morning to determine disposition. Patient is currently on IV antibiotics for rule out septic joint. 0834 - Hospitalist has come down to evaluate the patient after speaking with orthopedic surgery. Disposition to be determined. 01/08/23 1045 - Patient will be admitted here. Has required doses of oral pain medications this morning. Departure - Departure Disposition: [address] [facility] DC/Xfer Clinical Impression: Inflammatory arthritis, Diabetes Condition: Good Discharge Date/Time: 01/08/23 14:30
[2023-01-08] MEDS ORDERED: ACETAMINOPHEN 325 MG TABLET PO PRN (12:56)
[2023-01-08] MEDS ORDERED: HYDROcod/ACETAM 5/325 MG TABLET PO PRN (12:56)
[2023-01-08] MEDS ORDERED: SODIUM CHLORIDE FLUSH 0.9% 10 ML SYRINGE IVP PRN (12:56)
[2023-01-08] MEDS ORDERED: IBUPROFEN 400 MG TABLET PO PRN (12:56)
[2023-01-08] MEDS ORDERED: HYDROmorphone 0.5 MG/0.5 ML SYRINGE IVP PRN (12:56)
[2023-01-08] MEDS ORDERED: GABAPENTIN 300 MG CAPSULE PO PRN (13:40)
--- NOTE | 2023-01-08 13:56 | HISTORY & PHYSICAL EXAMINATION ---
Chief Complaint - Chief Complaint Chief Complaint: Left knee pain and swelling History of Present Illness - Admitted From Admitted From:: ED - History Obtained From Records Reviewed: Yes History obtained from: Patient Exam Limitations: No - History of Present Illness HPI Comment/Other: Patient is a 32-year-old female with a past medical history of poorly controlled type 2 diabetes who presented to the ED due to nontraumatic swelling of her left knee which began approximately 2 days prior. Patient does have a prior history of a septic knee which required an OR washout in 2020. During his hospitalization she required 2 I&D procedures and was given 1 dose of IV Dalvance 1500 mg and lieu of long-term antibiotics. In the ED during this hospitalization, a joint aspiration was performed showing 38,900 WBCs. This fluid has been sent out for culture. There was no evidence of crystals in the aspirate. X-ray showed a small joint effusion. Case was discussed with orthopedic surgery and she was admitted to the floor. Patient is unable to bear weight on her affected extremity. She denies any fever or chills but is in excruciating pain with any movement of her left knee. She reports she is a type II diabetic and her last A1c was 11.7 in 2020. She also has a history of gestational diabetes. Patient has no known cardiac or pulmonary history. 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 He used to smoke and drink. The patient's mother has diabetes mellitus type 2. She has obesity and underwent a gastric bypass. The patient sister has diabetes mellitus type 2. Social History Notes: The patient lives at home with her son and . Her is in the [employer] and is currently in [place] on duty. Her sister is currently living with her and helping with her son. The patient does not smoke tobacco products. She quit smoking 3 years ago. She smoked for 2 years before then. She stated that a pack of cigarettes would last her about a month when she was smoking. She smokes marijuana. She rarely drinks alcohol. - POLST Patient has POLST: No POLST Status: Full Code Meds/Allgy - Home Medications Home Medications: Ambulatory Orders Medication Instructions Recorded Confirmed Insulin Glargine [Lantus Solostar] 10 units SUBQ BID 04/01/20 01/07/23 Sitagliptin Phos/Metformin HCl 1 tab PO BID 04/01/20 01/07/23 [Janumet 50-1,000 mg Tablet] Insulin Aspart [NovoLOG] 2 - 10 unit SUBQ 04/06/20 01/07/23 0800,1200,1700,2100 #5 pen Gabapentin [Neurontin] 300 mg PO TID PRN 01/05/23 01/07/23 HYDROcod/ACETAM 5/325 [Martin 5/325] 1 tablet PO Q6H PRN #10 tablet 01/05/23 01/07/23 Norgestimate-Ethinyl Estradiol 1 tab ORAL DAILY 01/05/23 01/07/23 [Tri-Sprintec Tablet] - Allergies Allergies/Adverse Reactions: Allergies Allergy/AdvReac Type Severity Reaction Status Date / Time adhesive tape Allergy Rash Verified 01/07/23 12:33 latex Allergy Rash Verified 01/07/23 12:33 Review of Systems - Musculoskeletal Musculoskeletal: reports: Limited range of motion, Joint pain, Joint swelling - All Other Systems All Other Systems: reports: Reviewed and negative Prior Level of Functionality: Independent Exam - Vital Signs Vital Signs: Vital Signs x48h Temp Pulse Resp BP Pulse Ox 01/08/23 13:26 36.7 C 102 H 20 117/84 H 97 01/08/23 12:32 88 16 99/66 99 01/08/23 11:00 100 20 113/82 H 99 01/08/23 09:31 92 16 105/68 99 01/08/23 06:00 80 16 97 - Physical Exam General Appearance: positive: Moderate distress Respiratory: positive: Chest non-tender, No respiratory distress, Breath sounds nml Cardiovascular: positive: No murmur, No gallop, Tachycardia Abdomen: positive: Non-tender, No organomegaly, Nml bowel sounds, No distention Extremities: positive: Joint swelling. negative: Full ROM, Nml appearance Sepsis Event Note (H) - Evaluation Current Stage of Sepsis: Sepsis Possible source of Sepsis: positive: Bone/Joint - Sepsis Criteria Sepsis Criteria: Recorded Heart Rate greater than 90 bpm, Recorded Respiratory R ate greater than 20 Conclusion/Plan - Problem List (1) Inflammatory arthritis Conclusion/Plan: --Concern for sepsis secondary to septic arthritis. -- Aspirate of knee joint effusion showed a WBC of 39,000. Case was discussed with orthopedic surgery and they will follow. She has remained n.p.o. at midnight. --Started on IV vancomycin and Zosyn for empiric antibiotic coverage. --Blood cultures and knee joint fluid cultures are pending. -- No evidence of crystals in aspirate. --Analgesia available. --RCRI class II risk. 6% 30-day risk of , [place], or cardiac arrest. She is currently medically optimized for surgery. No contraindications for surgery. (2) DM hyperosmolarity type II, uncontrolled Conclusion/Plan: --Repeat A1c is pending. --We will start with long-acting insulin 10 units nightly with high-dose sliding scale. --Nutrition consulted. - Lab Results Lab results reviewed: Yes Fish Bones: 01/07/23 12:52 01/07/23 12:52 - Diagnostic Imaging Results Diagnostic Imaging Results: positive: Final report reviewed Core Measures - DVT/VTE - Prophylaxis VTE/DVT Device ordered at admit?: Yes
[2023-01-08] MEDS: PIPERACILLIN/TAZOBACTAM 4.5 GM in SODIUM CHLORIDE 0.9% MINIBAG 100 ML IV SCH ×2 (14:08→21:27)
[2023-01-08 14:16] LABS: ESTIMATED AVERAGE GLUCOSE 263 mg/dL (70-100); HEMOGLOBIN A1c% 10.8 % (4.27-6.07)
[2023-01-08] MEDS: VANCOMYCIN INJ 2 GM in SODIUM CHLORIDE 0.9% 500 ML IV SCH (15:11)
[2023-01-08] MEDS ORDERED: BUFFERED LIDOCAINE 10 ML SYRINGE IU ONE (16:17)
--- NOTE | 2023-01-08 17:14 | HISTORY & PHYSICAL EXAMINATION ---
HPI - History Obtained From History obtained from: Patient Exam limitations: Clinical condition - History of Present Illness HPI Comment/Other: This is a 32-year-old woman who presented to the emergency room yesterday and 2 days earlier for left knee pain. She developed spontaneous onset left knee pain beginning on Friday, January 05, 2023. She had increasing pain associated with swelling to her left knee that developed over the next 2 days. Yesterday she came to the emergency room because of marked difficulty bearing weight on the left leg, marked difficulty moving the left knee and considerable swelling. She denies any injury. She denies symptoms or signs of previous infection. She denies chest pain, shortness of breath, urinary frequency or burning, back pain, abdominal pain or changes in bowel. She does have a history of insulin-dep endent diabetes mellitus, poorly controlled. She also has a history of hydradenitis suppurativa affecting her inguinal folds and axillary folds and has had dermatological treatment including Kenalog injections. She denies fever or definite chills but has had night sweats over the past 1-2 evenings. She is normally active has a 4-year-old child and a who is in active duty [employer]; he is currently on deployment. She had a similar episode and was admitted to this hospital in 2020 and had a rthroscopic irrigation debridement for presumed left knee infectionShe states that she was in the hospital about a week and she cannot remember if she was given antibiotics after that period of time. She has been normally active since that time up until this recent admission. She had arthrocentesis of the left knee yesterday evening by the emergency room physician, Dr. Curtis. He obtained about 35 cc of greenish tinged turbid fluid. This was sent to the lab with negative crystals but increased white blood cell count. Her cultures are pending. She was started on Zosyn and vancomycin after cultures were obtained. She does not note any change in her pain since last night till tonight. She denies other areas of joint swelling. She has occasional pain and swelling to both ankles but this is not new. PMH/PSH - Past Medical History Cardiovascular: positive: None Respiratory: positive: None Neuro: positive: None Endocrine/Autoimmune: positive: Type 2 diabetes GI: positive: Other WHEEL SETTER: positive: None : positive: Other HEENT: positive: None Psych: positive: Depression Musculoskeletal: positive: Other Derm: positive: Other MRSA Hx?: No - Past Surgical History Ortho: positive: Other /WHEEL SETTER: positive: section HEENT: positive: Tonsil/Adenoidectomy Social & Family Hx - Social History Does the pt smoke?: No Smoking Status: Never smoker Does the pt drink ETOH?: No Does the pt have substance abuse?: No - POLST Patient has POLST: No POLST Status: Full Code Meds/Allgy - Home Medications Home Medications: Ambulatory Orders Medication Instructions Recorded Confirmed Insulin Glargine [Lantus Solostar] 10 units SUBQ BID 04/01/20 01/07/23 Sitagliptin Phos/Metformin HCl 1 tab PO BID 04/01/20 01/07/23 [Janumet 50-1,000 mg Tablet] Insulin Aspart [NovoLOG] 2 - 10 unit SUBQ 04/06/20 01/07/23 0800,1200,1700,2100 #5 pen Gabapentin [Neurontin] 300 mg PO TID PRN 01/05/23 01/07/23 HYDROcod/ACETAM 5/325 [[place] 5/325] 1 tablet PO Q6H PRN #10 tablet 01/05/23 01/07/23 Norgestimate-Ethinyl Estradiol 1 tab ORAL DAILY 01/05/23 01/07/23 [Tri-Sprintec Tablet] - Allergies Allergies/Adverse Reactions: Allergies Allergy/AdvReac Type Severity Reaction Status Date / Time adhesive tape Allergy Rash Verified 01/07/23 12:33 latex Allergy Rash Verified 01/07/23 12:33 Exam - Vital Signs Vital Signs: Vital Signs x48h Temp Pulse Pulse Resp BP BP Pulse Ox 01/08/23 15:50 37.0 C 87 20 111/65 98 01/08/23 15:26 36.6 C 85 20 124/87 H 99 01/08/23 14:27 36.4 C L 01/08/23 13:26 36.7 C 102 H 20 117/84 H 97 01/08/23 12:32 88 16 99/66 99 01/08/23 11:00 100 20 113/82 H 99 01/08/23 09:31 92 16 105/68 99 - Physical Exam General Appearance: positive: Mild distress Neurologic/Psychiatric: positive: Oriented x3, Motor nml, Sensation nml Comments/Other: The left knee has a moderate effusion, mild synovitis. The left knee is held in about 10 to 15 degrees of flexion for comfort. She has marked tenderness diffusely about the left knee. She has markedly limited motion to the left knee because of pain. There is no redness or lymphangitis. She does have signs of hydradenitis suppurativa to her inguinal folds and axillary folds without gross infection. Results - Lab Results Fish Bones: 01/07/23 12:52 01/07/23 12:52 Other Lab Results: Lab Results x24hrs 01/08/23 01/08/23 01/08/23 Range/Units 16:35 14:26 08:35 POC Whole Bld Glucose 164 H 182 H 229 H (70 - 100) mg/dL Estimat Average Glucose (70-100) mg/dL Hemoglobin A1c % (4.27-6.07) % Fluid Source Fluid Color Fluid Clarity Fluid WBC /mm^3 Fluid RBC /mm^3 Fluid Neutrophils % % Fluid Lymphocytes % % Fluid Macrophages % % Fld Mesothelial Cell % Fluid Crystals 01/07/23 01/07/23 01/07/23 Range/Units 20:26 20:26 12:52 POC Whole Bld Glucose (70 - 100) mg/dL Estimat Average Glucose 263 H (70-100) mg/dL Hemoglobin A1c % 10.8 H (4.27-6.07) % Fluid Source SYNOVIAL Fluid Color STRAW Fluid Clarity CLOUDY Fluid WBC 28593 /mm^3 Fluid RBC 2000 /mm^3 Fluid Neutrophils % 80 % Fluid Lymphocytes % 15 % Fluid Macrophages % 5 % Fld Mesothelial Cell % Not Reportable Fluid Crystals NONE SEEN - Diagnostic Imaging Results Diagnostic Imaging Results: positive: Read independently (Routine x-rays of the left knee are normal), Other (Synovial fluid white count is elevated, increased neutrophils; crystals negative and culture pending. Synovial fluid culture from 01/07/2023 is negative so far) Sepsis Event Note (H) - Evaluation Current Stage of Sepsis: Sepsis Possible source of Sepsis: positive: Bone/Joint - Sepsis Criteria Sepsis Criteria: Recorded Heart Rate greater than 90 bpm, Recorded Respiratory Rate greater than 20 Impression/Plan - Problem List Problem List: Monoarticular inflammatory arthritis left knee She had a similar episode in 2020 that may have been infectious; she did have arthroscopic irrigation and debridement and was on antibiotics for a short period of time. So far, current cultures are negative from synovial fluid left knee obtained yesterday. She is on broad-spectrum antibiotics: Zosyn and vancomycin. There has been no significant change in her symptoms since admission. Her white blood cell count was mildly elevated on her CBC. An arthrocentesis was performed using a sterile technique at her bedside. Verbal consent has been obtained. A lateral suprapatellar puncture was made and removal of 35 cc of synovial fluid, green-tinged and turbid was obtained. This synovial fluid was sent for crystals, cell count, aerobic and anaerobic culture. The plan is for arthroscopic irrigation debridement tomorrow. Patient has diabetes, not well controlled and is probably immunocompromisedA positive culture would provide definitive proof of septic arthritis. The patient is agreement to proceeding with arthroscopy, irrigation debridement of her left knee tomorrow. Occasionally this has to be repeated for infection control. I have also discussed the case with our hospitalist; I suggest arthritis panel. The risk, goals and likelihood of achieving goals, alternatives to surgery and consequences, disability and rarely were discussed the patient she is in agreement to the surgery has signed informed consent
[2023-01-08] MEDS: INSULIN LISPRO 300 UNIT/3 ML PEN SUBQ SCH ×2 (17:21→21:28)
[2023-01-08 17:23] LABS: CC,BF RBC 7000 /mm^3
[2023-01-08] MEDS: SODIUM CHLORIDE FLUSH 0.9% 10 ML SYRINGE IVP SCH (17:23)
[2023-01-08 17:24] LABS: BF CLARITY CLOUDY; BF COLOR YELLOW; BF SOURCE SYNOVIAL
[2023-01-08 17:35] LABS: LYMPHOCYTES %,BODY FLUID 15 %; MACROPHAGES %,BODY FLUID 4 %; NEUTROPHILS %, BF 81 %
[2023-01-08 19:00] LABS: CC,BF WBC 38125 /mm^3
[2023-01-09] MEDS: SODIUM CHLORIDE FLUSH 0.9% 10 ML SYRINGE IVP SCH ×3 (00:03→16:56)
[2023-01-09] MEDS: ONDANSETRON ODT 4 MG TABLET TL PRN ×2 (00:06→08:14)
[2023-01-09] MEDS: PIPERACILLIN/TAZOBACTAM 4.5 GM in SODIUM CHLORIDE 0.9% MINIBAG 100 ML IV SCH ×4 (02:18→20:54)
[2023-01-09] MEDS: VANCOMYCIN INJ 2 GM in SODIUM CHLORIDE 0.9% 500 ML IV SCH (03:27)
[2023-01-09 05:18] LABS: BASOPHILS % (AUTO) 0.3 %; EOSINOPHILS # (AUTO) 0.1 10^3/uL (0.0-0.7); EOSINOPHILS % (AUTO) 1.1 %; HCT - HEMATOCRIT 33.3 % (37.0-47.0); HGB - HEMOGLOBIN 10.6 g/dL (12.0-16.0); LYMPHOCYTES # (AUTO) 2.8 10^3/uL (1.5-3.5); LYMPHOCYTES % (AUTO) 25.2 %; MEAN CORPUSCULAR HGB CONC 31.8 g/dL (32.0-36.0); MEAN PLATELET VOLUME 8.8 fL (7.9-10.8); MONOCYTES # (AUTO) 0.9 10^3/uL (0.0-1.0); MONOCYTES % (AUTO) 8.3 %; NEUTROPHILS # (AUTO) 7.3 10^3/uL (1.5-6.6); NEUTROPHILS % (AUTO) 64.7 %; PLT - PLATELET COUNT 381 10^3/uL (130-450); RED BLOOD COUNT 3.66 10^6/uL (4.20-5.40); RED CELL DISTRIBUTION WIDTH 11.9 % (12.0-15.0); WHITE BLOOD COUNT 11.3 x10^3/uL (4.8-10.8)
[2023-01-09 05:32] LABS: CALCIUM 8.7 mg/dL (8.5-10.3); CREATININE 0.7 mg/dL (0.6-1.3); CRP - C-REACTIVE PROTEIN 17.5 mg/dL (<0.5); POTASSIUM 3.5 mmol/L (3.5-4.5); URIC ACID 3.4 mg/dL (2.3-6.6)
[2023-01-09 06:17] LABS: RHEUMATOID FACTOR NEGATIVE (Negative)
[2023-01-09] MEDS ORDERED: cefTRIAXone 2 GM in SODIUM CHLORIDE 0.9% MINIBAG 100 ML IV SCH (09:00)
[2023-01-09] MEDS ORDERED: BUPIVACAINE 0.25% PF 30 ML VIAL ONE (09:07)
[2023-01-09] MEDS ORDERED: EPINEPHrine 1 MG/ML AMP ONE (09:07)
[2023-01-09] MEDS ORDERED: BACITRACIN ZINC OINT 1 PACKET TOP ONE (09:07)
[2023-01-09] MEDS: INSULIN GLARGINE-YFGN 300 UNIT/3 ML PEN SUBQ SCH (09:09)
[2023-01-09] MEDS: INSULIN REGULAR HUMAN 300 UNIT/3 ML VIAL SUBQ SCH ×2 (09:10→11:40)
--- NOTE | 2023-01-09 09:46 | ANESTHESIA ---
Pre-Anesthesia VS, & Labs - Diagnosis monoarticular arthritis left knee - Procedure arthroscopic I&D L knee Vital Signs: Temp Pulse Resp BP Pulse Ox O2 Flow Rate 36.6 C 80 16 107/81 H 99 01/09/23 07:54 01/09/23 07:54 01/09/23 07:54 01/09/23 07:54 01/09/23 07:54 Height: 5 ft 2 in Weight (kg): 85 kg Body Mass Index: 34.2 BMI Classification: Obese - NPO >8 hours - Is Patient ?: No - Lab Results Current Lab Results: Laboratory Tests 01/09/23 05:08: POC Whole Bld Glucose 199 H 01/09/23 05:08: ESR > 140 H 01/09/23 05:08: Sodium 135, Potassium 3.5, Chloride 102, Carbon Dioxide 23, Anion Gap 10.0, BUN 11, Creatinine 0.7, Estimated GFR (MDRD) 98, Glucose 215 H, Uric Acid 3.4, Calcium 8.7, C-Reactive Protein 17.5 H 01/09/23 05:08: WBC 11.3 H, RBC 3.66 L, Hgb 10.6 L, Hct 33.3 L, MCV 91.0, MCH 29.0, MCHC 31.8 L, RDW 11.9 L, Plt Count 381, MPV 8.8, Neut # (Auto) 7.3 H, Lym ph # (Auto) 2.8, [place] # (Auto) 0.9, Eos # (Auto) 0.1, Baso # (Auto) 0.0, Absolute Nucleated RBC 0.00, Nucleated RBC % 0.0 01/08/23 22:29: POC Whole Bld Glucose 221 H 01/08/23 20:47: POC Whole Bld Glucose 211 H 01/08/23 16:35: POC Whole Bld Glucose 164 H 01/08/23 14:26: POC Whole Bld Glucose 182 H 01/08/23 08:35: POC Whole Bld Glucose 229 H 01/07/23 12:52: Estimat Average Glucose 263 H, Hemoglobin A1c % 10.8 H 01/07/23 12:52: ESR 96 H 01/07/23 12:52: Sodium 134 L, Potassium 3.9, Chloride 99 L, Carbon Dioxide 26, Anion Gap 9.0, BUN 11, Creatinine 0.5 L, Estimated GFR (MDRD) 144, Glucose 298 H , Calcium 9.6, Total Bilirubin 0.3, AST 10, ALT 8 L, Alkaline Phosphatase 130 H, C-Reactive Protein 11.2 H, Total Protein 8.6, Albumin 3.8, Globulin 4.8 H, Albumin/Globulin Ratio 0.8 L, Lipase 22 01/07/23 12:52: WBC 11.2 H, RBC 4.27, Hgb 12.2, Hct 38.3, MCV 89.7, MCH 28.6, MCHC 31.9 L, RDW 12.2, Plt Count 495 H, MPV 8.7, Neut # (Auto) 7.3 H, Lymph # ( Auto) 3.2, [place] # (Auto) 0.6, Eos # (Auto) 0.1, Baso # (Auto) 0.0, Absolute Nucleated RBC 0.00, Nucleated RBC % 0.0 Lab results reviewed: Yes Fish Bones: 01/09/23 05:08 01/09/23 05:08 Home Medications and Allergies Active Medications Acetaminophen (Acetaminophen 325 Mg Tablet) 650 mg PO Q4HR PRN PRN Reason: Pain 1 to 4, or Fever Hydrocodone Bitart/Acetaminophen (Hydrocod/Acetam 5/325 Mg Tablet) 1 tab PO Q4HR PRN PRN Reason: Pain 5 to 7 Last Admin: 01/08/23 21:30 Dose: 1 tab Gabapentin (Gabapentin 300 Mg Capsule) 300 mg PO TID PRN PRN Reason: PAIN 1-4 Hydromorphone HCl (Hydromorphone 0.5 Mg/0.5 Ml Syringe) 0.5 mg IVP Q2H PRN PRN Reason: Pain 8 to 10 Vancomycin HCl 2 gm/ Sodium (Chloride) 500 mls @ 250 mls/hr IV Q12H [facility] Last Infusion: 01/09/23 05:34 Dose: Infused Piperacillin Sod/Tazobactam (Sod 4.5 gm/ Sodium Chloride) 100 mls @ 200 mls/hr IV Q6H [facility] Stop: 01/18/23 13:59 Last Admin: 01/09/23 09:10 Dose: 200 mls/hr Ibuprofen (Ibuprofen 400 Mg Tablet) 400 mg PO Q4HR PRN PRN Reason: Pain 1 to 4 Last Admin: 01/09/23 00:06 Dose: 400 mg Insulin Glargine-yfgn (Insulin Glargine-Yfgn 300 Unit/3 Ml Pen) 10 unit SUBQ QDBREAKFAST [facility] Last Admin: 01/09/23 09:09 Dose: 10 unit Insulin Human Regular (Insulin Regular Human 300 Unit/3 Ml Vial) 3 - 11 unit SUBQ Q6HR [facility]; Protocol Last Admin: 01/09/23 09:10 Dose: 5 unit Ondansetron HCl (Ondansetron Odt 4 Mg Tablet) 4 mg TL Q6HR PRN PRN Reason: Nausea / Vomiting Last Admin: 01/09/23 08:14 Dose: 4 mg Norgestimate- Ethinyl Estradiol [ Tri-Sprintec Tablet] 1 Each Tablet 1 each PO DAILY [facility] Sodium Chloride (Sodium Chloride Flush 0.9% 10 Ml Syringe) 10 ml IVP PRN PRN PRN Reason: NEEDED PER PROVIDER ORDERS Last Admin: 01/08/23 21:28 Dose: 10 ml Sodium Chloride (Sodium Chloride Flush 0.9% 10 Ml Syringe) 10 ml IVP 0100,0900,1700 [facility] Last Admin: 01/09/23 09:11 Dose: 10 ml Insulin Glargine [Lantus Solostar] 10 units SUBQ BID 04/01/20 Sitagliptin Phos/Metformin HCl [Janumet 50-1,000 mg Tablet] 1 tab PO BID 04/01/20 Gabapentin [Neurontin] 300 mg PO TID PRN 01/05/23 Norgestimate-Ethinyl Estradiol [Tri-Sprintec Tablet] 1 tab ORAL DAILY 01/05/23 Allergies/Adverse Reactions: Allergies Allergy/AdvReac Type Severity Reaction Status Date / Time adhesive tape Allergy Rash Verified 01/07/23 12:33 latex Allergy Rash Verified 01/07/23 12:33 Anes History & Medical History - Anesthetic History Anesthesia Complications: reports: Emergence delirium, Other-see comment (combative) Family history of Anesthesia Complications: Denies Family history of Malignant Hyperthermia: Denies - Medical History Cardiovascular: reports: None Pulmonary: reports: None Gastrointestinal: reports: GERD (occ symptoms, none currently) Urinary: reports: Other Neuro: reports: None Musculoskeletal: reports: Other Endocrine/Autoimmune: reports: Type 2 diabetes (poorly controlled A1C>10) Blood Disorders: reports: None Skin: reports: Other Smoking Status: Current every day smoker (vape) Psychosocial: reports: No issues indicated Other Past Medical History: hidradenitis suppurativa - Surgical History Eyes Ears Nose Throat (EENT): reports: Tonsil/Adenoidectomy Gynecologic: reports: section Orthopedic: reports: Other Exam General: Alert, Oriented x3, Cooperative Dental: WNL Mouth Openin Fingerbreadth Neck Mobility: Normal Mallampati classification: II Thyromental Distance: 4-6 cm Respiratory: Lungs clear Cardiovascular: Regular rate Plan Anesthesia Type: General Consent for Procedure(s) Verified and Reviewed: Yes Code Status: Attempt Resuscitation ASA classification: 2-Mild systemic disease Is this case an emergency?: No
[2023-01-09] MEDS ORDERED: fentaNYL 100 MCG/2 ML VIAL IVP PRN (09:48)
[2023-01-09] MEDS ORDERED: HYDROmorphone 0.5 MG/0.5 ML SYRINGE IVP PRN (09:48)
[2023-01-09] MEDS ORDERED: NALOXONE 0.4 MG/ML VIAL IVP PRN (09:48)
[2023-01-09] MEDS ORDERED: ATROPINE ABBOJECT 1 MG/10 ML SYRINGE IVP PRN (09:48)
[2023-01-09] MEDS ORDERED: ONDANSETRON 4 MG/2 ML VIAL IVP PRN (09:48)
[2023-01-09] MEDS ORDERED: ePHEDrine 50 MG/ML VIAL IVP PRN (09:48)
[2023-01-09] MEDS ORDERED: LACTATED RINGERS 1,000 ML IV SCH (10:00)
[2023-01-09] MEDS ORDERED: PROPOFOL 500 MG/50 ML 500 MG/50 ML VIAL ONE (10:02)
[2023-01-09] MEDS ORDERED: PROCHLORPERAZINE 5 MG TABLET PO PRN (10:10)
[2023-01-09] MEDS: NORGESTIMATE ETHINYL ESTRADIOL PO SCH (10:19)
--- NOTE | 2023-01-09 10:41 | PHARMACY PROGRESS NOTE ---
- Best Possible Medication History Admit Date and Time: 01/08/23 1256 Processed by: Pharmacy Medication History completed: Yes Patient Interview: Completed Secondary Source(s): Pharmacy records, Insurance records As the person ultimately responsible for medication therapy, providers are able to order a medication from an existing home medication list in [facility] via the "Reconcile Routine" prior to Confirmation of that medication by pc support specialist. Such practice is discouraged except when the physician, in their clinical judgment, deems that a medical need exists for a medication without regard to previous use.
[2023-01-09 11:18] LABS: HCG UR QUAL NEGATIVE
[2023-01-09] MEDS ORDERED: MIDAZOLAM 2 MG/2 ML VIAL ONE (11:42)
[2023-01-09] MEDS ORDERED: fentaNYL 100 MCG/2 ML VIAL ONE (11:43)
[2023-01-09] MEDS ORDERED: ONDANSETRON 4 MG/2 ML VIAL ONE (11:43)
[2023-01-09] MEDS ORDERED: VANCOMYCIN 1 GM VIAL ONE (11:46)
--- NOTE | 2023-01-09 13:07 | PROVIDER PROGRESS NOTE ---
Subjective - General Admit Date: 01/08/23 - Review of Systems Genitourinary: positive: No symptoms All Other Systems: positive: Reviewed and negative - Other Other Information/Narrative: Patient reports considerable improvement in pain to her left knee. This has occurred since her visit last night. She is able to move the left knee Much better but not normal. She was able to get out of bed with crutches. She denies fever or chills. Objective - Patient Data Vital Signs: Vital Signs x48h Temp Pulse Resp BP Pulse Ox 01/09/23 07:54 36.6 C 80 16 107/81 H 99 Weight: Weight 01/07/23 01/08/23 01/09/23 23:59 23:59 23:59 Weight (kg) 84.822 kg 85 kg 85 kg Intake & Output: Intake and Output Totals x24h 01/07/23 01/08/23 01/09/23 23:59 23:59 23:59 Intake Total 1650 800 Output Total 300 Balance 1350 800 - Lab Results Lab Results: 01/09/23 05:08 01/09/23 05:08 Other Lab Results: Lab Results x24hrs 01/09/23 01/09/23 01/09/23 Range/Units 11:15 11:08 05:08 WBC (4.8-10.8) x10^3/uL RBC (4.20-5.40) 10^6/uL Hgb (12.0-16.0) g/dL Hct (37.0-47.0) % MCV (81.0-99.0) fL MCH (27.0-31.0) pg MCHC (32.0-36.0) g/dL RDW (12.0-15.0) % Plt Count (130-450) 10^3/uL MPV (7.9-10.8) fL Neut # (Auto) (1.5-6.6) 10^3/uL Lymph # (Auto) (1.5-3.5) 10^3/uL [place] # (Auto) (0.0-1.0) 10^3/uL Eos # (Auto) (0.0-0.7) 10^3/uL Baso # (Auto) (0.0-0.1) 10^3/uL Absolute Nucleated RBC x10^3/uL Nucleated RBC % /100WBC ESR (0-20) mm/Hr Sodium (135-145) mmol/L Potassium (3.5-4.5) mmol/L Chloride (101-111) mmol/L Carbon Dioxide (21-32) mmol/L Anion Gap (6-13) BUN (6-20) mg/dL Creatinine (0.6-1.3) mg/dL Estimated GFR (MDRD) (>89) Glucose (74-104) mg/dL POC Whole Bld Glucose 176 H 199 H (70 - 100) mg/dL Estimat Average Glucose (70-100) mg/dL Hemoglobin A1c % (4.27-6.07) % Uric Acid (2.3-6.6) mg/dL Calcium (8.5-10.3) mg/dL C-Reactive Protein (<0.5) mg/dL Urine HCG, Qual NEGATIVE Fluid Source Fluid Color Fluid Clarity Fluid WBC /mm^3 Fluid RBC /mm^3 Fluid Neutrophils % % Fluid Lymphocytes % % Fluid Macrophages % % Fld Mesothelial Cell % Fluid Crystals Rheumatoid Factor (Negative) 01/09/23 01/09/23 01/09/23 Range/Units 05:08 05:08 05:08 WBC (4.8-10.8) x10^3/uL RBC (4.20-5.40) 10^6/uL Hgb (12.0-16.0) g/dL Hct (37.0-47.0) % MCV (81.0-99.0) fL MCH (27.0-31.0) pg MCHC (32.0-36.0) g/dL RDW (12.0-15.0) % Plt Count (130-450) 10^3/uL MPV (7.9-10.8) fL Neut # (Auto) (1.5-6.6) 10^3/uL Lymph # (Auto) (1.5-3.5) 10^3/uL [place] # (Auto) (0.0-1.0) 10^3/uL Eos # (Auto) (0.0-0.7) 10^3/uL Baso # (Auto) (0.0-0.1) 10^3/uL Absolute Nucleated RBC x10^3/uL Nucleated RBC % /100WBC ESR > 140 H (0-20) mm/Hr Sodium 135 (135-145) mmol/L Potassium 3.5 (3.5-4.5) mmol/L Chloride 102 (101-111) mmol/L Carbon Dioxide 23 (21-32) mmol/L Anion Gap 10.0 (6-13) BUN 11 (6-20) mg/dL Creatinine 0.7 (0.6-1.3) mg/dL Estimated GFR (MDRD) 98 (>89) Glucose 215 H (74-104) mg/dL POC Whole Bld Glucose (70 - 100) mg/dL Estimat Average Glucose (70-100) mg/dL Hemoglobin A1c % (4.27-6.07) % Uric Acid 3.4 (2.3-6.6) mg/dL Calcium 8.7 (8.5-10.3) mg/dL C-Reactive Protein 17.5 H (<0.5) mg/dL Urine HCG, Qual Fluid Source Fluid Color Fluid Clarity Fluid WBC /mm^3 Fluid RBC /mm^3 Fluid Neutrophils % % Fluid Lymphocytes % % Fluid Macrophages % % Fld Mesothelial Cell % Fluid Crystals Rheumatoid Factor NEGATIVE (Negative) 01/09/23 01/08/23 01/08/23 Range/Units 05:08 22:29 20:47 WBC 11.3 H (4.8-10.8) x10^3/uL RBC 3.66 L (4.20-5.40) 10^6/uL Hgb 10.6 L (12.0-16.0) g/dL Hct 33.3 L (37.0-47.0) % MCV 91.0 (81.0-99.0) fL MCH 29.0 (27.0-31.0) pg MCHC 31.8 L (32.0-36.0) g/dL RDW 11.9 L (12.0-15.0) % Plt Count 381 (130-450) 10^3/uL MPV 8.8 (7.9-10.8) fL Neut # (Auto) 7.3 H (1.5-6.6) 10^3/uL Lymph # (Auto) 2.8 (1.5-3.5) 10^3/uL [place] # (Auto) 0.9 (0.0-1.0) 10^3/uL Eos # (Auto) 0.1 (0.0-0.7) 10^3/uL Baso # (Auto) 0.0 (0.0-0.1) 10^3/uL Absolute Nucleated RBC 0.00 x10^3/uL Nucleated RBC % 0.0 /100WBC ESR (0-20) mm/Hr Sodium (135-145) mmol/L Potassium (3.5-4.5) mmol/L Chloride (101-111) mmol/L Carbon Dioxide (21-32) mmol/L Anion Gap (6-13) BUN (6-20) mg/dL Creatinine (0.6-1.3) mg/dL Estimated GFR (MDRD) (>89) Glucose (74-104) mg/dL POC Whole Bld Glucose 221 H 211 H (70 - 100) mg/dL Estimat Average Glucose (70-100) mg/dL Hemoglobin A1c % (4.27-6.07) % Uric Acid (2.3-6.6) mg/dL Calcium (8.5-10.3) mg/dL C-Reactive Protein (<0.5) mg/dL Urine HCG, Qual Fluid Source Fluid Color Fluid Clarity Fluid WBC /mm^3 Fluid RBC /mm^3 Fluid Neutrophils % % Fluid Lymphocytes % % Fluid Macrophages % % Fld Mesothelial Cell % Fluid Crystals Rheumatoid Factor (Negative) 01/08/23 01/08/23 01/08/23 Range/Units 16:50 16:50 16:35 WBC (4.8-10.8) x10^3/uL RBC (4.20-5.40) 10^6/uL Hgb (12.0-16.0) g/dL Hct (37.0-47.0) % MCV (81.0-99.0) fL MCH (27.0-31.0) pg MCHC (32.0-36.0) g/dL RDW (12.0-15.0) % Plt Count (130-450) 10^3/uL MPV (7.9-10.8) fL Neut # (Auto) (1.5-6.6) 10^3/uL Lymph # (Auto) (1.5-3.5) 10^3/uL [place] # (Auto) (0.0-1.0) 10^3/uL Eos # (Auto) (0.0-0.7) 10^3/uL Baso # (Auto) (0.0-0.1) 10^3/uL Absolute Nucleated RBC x10^3/uL Nucleated RBC % /100WBC ESR (0-20) mm/Hr Sodium (135-145) mmol/L Potassium (3.5-4.5) mmol/L Chloride (101-111) mmol/L Carbon Dioxide (21-32) mmol/L Anion Gap (6-13) BUN (6-20) mg/dL Creatinine (0.6-1.3) mg/dL Estimated GFR (MDRD) (>89) Glucose (74-104) mg/dL POC Whole Bld Glucose 164 H (70 - 100) mg/dL Estimat Average Glucose (70-100) mg/dL Hemoglobin A1c % (4.27-6.07) % Uric Acid (2.3-6.6) mg/dL Calcium (8.5-10.3) mg/dL C-Reactive Protein (<0.5) mg/dL Urine HCG, Qual Fluid Source SYNOVIAL Fluid Color YELLOW Fluid Clarity CLOUDY Fluid WBC 02010 /mm^3 Fluid RBC 7000 /mm^3 Fluid Neutrophils % 81 % Fluid Lymphocytes % 15 % Fluid Macrophages % 4 % Fld Mesothelial Cell % Not Reportable Fluid Crystals NONE SEEN Rheumatoid Factor (Negative) 01/08/23 01/07/23 Range/Units 14:26 12:52 WBC (4.8-10.8) x10^3/uL RBC (4.20-5.40) 10^6/uL Hgb (12.0-16.0) g/dL Hct (37.0-47.0) % MCV (81.0-99.0) fL MCH (27.0-31.0) pg MCHC (32.0-36.0) g/dL RDW (12.0-15.0) % Plt Count (130-450) 10^3/uL MPV (7.9-10.8) fL Neut # (Auto) (1.5-6.6) 10^3/uL Lymph # (Auto) (1.5-3.5) 10^3/uL [place] # (Auto) (0.0-1.0) 10^3/uL Eos # (Auto) (0.0-0.7) 10^3/uL Baso # (Auto) (0.0-0.1) 10^3/uL Absolute Nucleated RBC x10^3/uL Nucleated RBC % /100WBC ESR (0-20) mm/Hr Sodium (135-145) mmol/L Potassium (3.5-4.5) mmol/L Chloride (101-111) mmol/L Carbon Dioxide (21-32) mmol/L Anion Gap (6-13) BUN (6-20) mg/dL Creatinine (0.6-1.3) mg/dL Estimated GFR (MDRD) (>89) Glucose (74-104) mg/dL POC Whole Bld Glucose 182 H (70 - 100) mg/dL Estimat Average Glucose 263 H (70-100) mg/dL Hemoglobin A1c % 10.8 H (4.27-6.07) % Uric Acid (2.3-6.6) mg/dL Calcium (8.5-10.3) mg/dL C-Reactive Protein (<0.5) mg/dL Urine HCG, Qual Fluid Source Fluid Color Fluid Clarity Fluid WBC /mm^3 Fluid RBC /mm^3 Fluid Neutrophils % % Fluid Lymphocytes % % Fluid Macrophages % % Fld Mesothelial Cell % Fluid Crystals Rheumatoid Factor (Negative) - Imaging Results Radiology Imaging: positive: Other (Synovial fluid analysis from arthrocentesis on 01/08/2023 without significant change from the same procedure done on 01/07/2023. Culture reports continue to be normal; no sign of bacterial growth on synovial fluid culture) - Current Medications Current Medications: Current Medications Generic Name Dose Route Start Last Admin Trade Name Freq PRN Reason Stop Dose Admin Hydrocodone Bitart/Acetaminophen 1 tab 01/08/23 12:56 01/08/23 21:30 Hydrocod/Acetam 5/325 Mg Tablet PO 1 tab Q4HR PRN Administration Pain 5 to 7 Piperacillin Sod/Tazobactam 100 mls @ 200 mls/hr 01/08/23 14:00 01/09/23 11:44 Sod 4.5 gm/ Sodium Chloride IV 01/18/23 13:59 Infused Q6H NURYS Infusion Lactated Ringer's 1,000 mls @ 100 mls/hr 01/09/23 10:00 01/09/23 11:21 Lr IV 01/09/23 19:59 100 mls/hr .Q10H NURYS Administration Insulin Glargine-yfgn 10 unit 01/09/23 08:00 01/09/23 09:09 Insulin Glargine-Yfgn 300 Unit/3 Ml Pen SUBQ 10 unit QDBREAKFAST NURYS Administration Insulin Human Regular 3 - 11 unit 01/09/23 08:00 01/09/23 11:40 Insulin Regular Human 300 Unit/3 Ml Vial SUBQ 3 unit Q6HR NURYS Administration Protocol Ondansetron HCl 4 mg 01/08/23 12:56 01/09/23 08:14 Ondansetron Odt 4 Mg Tablet TL 4 mg Q6HR PRN Administration Nausea / Vomiting Norgestimate- 1 each 01/09/23 09:00 01/09/23 10:19 Ethinyl Estradiol [ PO 1 each Tri-Sprintec Tablet] DAILY NURYS Administration 1 Each Tablet Sodium Chloride 10 ml 01/08/23 12:56 01/08/23 21:28 Sodium Chloride Flush 0.9% 10 Ml Syringe IVP 10 ml PRN PRN Administration NEEDED PER PROVIDER ORDERS Sodium Chloride 10 ml 01/08/23 17:00 01/09/23 09:11 Sodium Chloride Flush 0.9% 10 Ml Syringe IVP 10 ml 0100,0900,1700 NURYS Administration - Physical Exam General Appearance: positive: No acute distress Comments/Other: The left knee still shows an effusion and mild synovitis the effusion in the left knee is slightly less. She is able to move the knee markedly better today she has about 70 degrees of active flexion without pain and this was only about 15 to 20 degrees yesterday. He has been up out of bed with crutches. Impression/Plan - Problem List Problem List: Inflammatory monoarticular arthritis left knee She has been on broad-spectrum antibiotics. Cultures obtained prior to antibiotic administration are normal. She is made marked clinical improvement overnight with less pain and better motion to her left knee. She is now asking to go home almost because of the improvement. I discussed the case with Dr. Pete. The plan is to try Toradol for pain as needed and Celebrex. I think the vancomycin can be stopped. We will evaluate culture report again tomorrow. Her arthritis panel is still pending but her rheumatoid factor was negative. Erythrocyte sedimentation rate and C-reactive protein are quite high. I have canceled her surgery today in the face of clinical improvement that is significant. I discussed this with her and she is in complete agreement
[2023-01-09] MEDS: CELECOXIB 100 MG CAPSULE PO SCH ×2 (13:41→20:54)
--- NOTE | 2023-01-09 15:04 | PROVIDER PROGRESS NOTE ---
Assessment/Plan - Problem List (1) Inflammatory arthritis Assessment/Plan: (1) Inflammatory arthritis Conclusion/Plan: -- Case was discussed with orthopedic surgery. Surgery was canceled this morning as patient has had quite a bit of improvement over the past 24 hours. She is able to bear weight on her knee and her pain is significantly reduced. --Vancomycin has been discontinued. We will continue her on IV Zosyn for now. --Knee joint effusion showing no growth to date. --We have started her on Celebrex as well as Toradol for breakthrough pain. -- If she continues to improve anticipate discharge in the next 24 hours. (2) DM hyperosmolarity type II, uncontrolled Conclusion/Plan: --We will start with long-acting insulin 10 units nightly with high-dose sliding scale. --Nutrition consulted. - Current Meds Current Meds: Current Medications Generic Name Dose Route Start Last Admin Trade Name Freq PRN Reason Stop Dose Admin Hydrocodone Bitart/Acetaminophen 1 tab 01/08/23 12:56 01/08/23 21:30 Hydrocod/Acetam 5/325 Mg Tablet PO 1 tab Q4HR PRN Administration Pain 5 to 7 Celecoxib 100 mg 01/09/23 13:00 01/09/23 13:41 Celecoxib 100 Mg Capsule PO 100 mg BID NURYS Administration Piperacillin Sod/Tazobactam 100 mls @ 200 mls/hr 01/08/23 14:00 01/09/23 14:36 Sod 4.5 gm/ Sodium Chloride IV 01/18/23 13:59 Infused Q6H NURYS Infusion Lactated Ringer's 1,000 mls @ 100 mls/hr 01/09/23 10:00 01/09/23 11:21 Lr IV 01/09/23 19:59 100 mls/hr .Q10H NURYS Administration Insulin Glargine-yfgn 10 unit 01/09/23 08:00 01/09/23 09:09 Insulin Glargine-Yfgn 300 Unit/3 Ml Pen SUBQ 10 unit QDBREAKFAST NURYS Administration Ondansetron HCl 4 mg 01/08/23 12:56 01/09/23 08:14 Ondansetron Odt 4 Mg Tablet TL 4 mg Q6HR PRN Administration Nausea / Vomiting Norgestimate- 1 each 01/09/23 09:00 01/09/23 10:19 Ethinyl Estradiol [ PO 1 each Tri-Sprintec Tablet] DAILY NURYS Administration 1 Each Tablet Sodium Chloride 10 ml 01/08/23 12:56 01/08/23 21:28 Sodium Chloride Flush 0.9% 10 Ml Syringe IVP 10 ml PRN PRN Administration NEEDED PER PROVIDER ORDERS Sodium Chloride 10 ml 01/08/23 17:00 01/09/23 09:11 Sodium Chloride Flush 0.9% 10 Ml Syringe IVP 10 ml 0100,0900,1700 NURYS Administration - Lab Result Fish Bone Diagrams: 01/09/23 05:08 01/09/23 05:08 - Additional Planning My Orders: My Active Orders 01/08/23 16:50 ANAEROBIC CULTURE+GRAM STAIN [REFLAB] Routine CUL,WOUND (AEROBIC) [RM] Routine 01/08/23 17:00 Sodium Chloride Flush 0.9% [Normal Saline Flush 0.9%] 10 ml IVP 0100,0900,1700 01/09/23 05:08 RASHAD COMPREHENSIVE PROFILE [REFLAB] DAILY CYCLIC CITRULLINATED PEP IGG/A [REFLAB] DAILY 01/09/23 07:14 Initiate Hypoglycemia Protocol [RC] .protocol 01/09/23 08:00 Insulin Glargine-Yfgn [Semglee] 10 unit SUBQ QDBREAKFAST 01/09/23 09:00 Patient Own Med 1 each PO DAILY 01/09/23 10:10 Prochlorperazine [Compazine] 5 mg PO Q6HR PRN 01/09/23 13:00 Celecoxib [CeleBREX] 100 mg PO BID 01/09/23 15:00 Blood Glucose Checks - Eating [RC] 0800,1200,1700,2100 Initiate Hypoglycemia Protocol [RC] .protocol 01/09/23 Dinner Carb-controlled Diet [DIET] 01/09/23 17:00 Insulin Lispro [Humalog Kwikpen U-100] 2 - 10 unit SUBQ 0800,1200,1700,2100 01/10/23 05:00 BMP - BASIC METABOLIC PANEL [CHEM] DAILYLAB CBC [CBC - COMP BLD CT W/AUTO DIFF] [HEME] DAILYLAB CRP - C-REACTIVE PROTEIN [CHEM] DAILYLAB ESR- ERYTHROCYTE SEDIMENT RATE [HEME] DAILYLAB 01/11/23 05:00 BMP - BASIC METABOLIC PANEL [CHEM] DAILYLAB CBC [CBC - COMP BLD CT W/AUTO DIFF] [HEME] DAILYLAB CRP - C-REACTIVE PROTEIN [CHEM] DAILYLAB ESR- ERYTHROCYTE SEDIMENT RATE [HEME] DAILYLAB 01/12/23 05:00 BMP - BASIC METABOLIC PANEL [CHEM] DAILYLAB CBC [CBC - COMP BLD CT W/AUTO DIFF] [HEME] DAILYLAB CRP - C-REACTIVE PROTEIN [CHEM] DAILYLAB ESR- ERYTHROCYTE SEDIMENT RATE [HEME] DAILYLAB 01/13/23 05:00 BMP - BASIC METABOLIC PANEL [CHEM] DAILYLAB CBC [CBC - COMP BLD CT W/AUTO DIFF] [HEME] DAILYLAB CRP - C-REACTIVE PROTEIN [CHEM] DAILYLAB ESR- ERYTHROCYTE SEDIMENT RATE [HEME] DAILYLAB Subjective - Subjective Patient Reports: Feeling Better (Surg was postponed due to improvement.), Resting Comfortably Objective Vital Signs: Vital Signs - 24 hr 01/08/23 01/08/23 01/08/23 15:26 15:50 22:52 Temperature 36.6 C 37.0 C 36.8 C Heart Rate [ 85 87 Brachial] Respiratory 20 20 Rate Blood Pressure 124/87 H 111/65 [Right Brachial artery] O2 Saturation 99 98 01/09/23 01/09/23 00:00 07:54 Temperature 37.2 C 36.6 C Heart Rate [ 89 80 Brachial] Respiratory 16 16 Rate Blood Pressure 115/81 H 107/81 H [Right Brachial artery] O2 Saturation 96 99 Oxygen O2 Source Room air I&O (Last 24 Hrs): Intake and Output Totals x24h 01/07/23 01/08/23 01/09/23 23:59 23:59 23:59 Intake Total 1650 900 Output Total 300 Balance 1350 900 General: Alert, Oriented x3, Cooperative, No acute distress Cardiovascular: Regular rate, Normal S1, Normal S2, No murmurs Respiratory: Chest non-tender, No respiratory distress, Breath sounds nml Abdomen: Normal bowel sounds, Soft, No tenderness, No hepatospenomegaly, No masses Extremities: No clubbing, No cyanosis, No edema, Normal pulses, No tenderness/swelling, Other (Continues to have swelling of the knee. She is able to bear weight and ambulate.) - Results Results: Laboratory Results WBC 11.3 x10^3/uL (4.8-10.8) H 01/09/23 05:08 RBC 3.66 10^6/uL (4.20-5.40) L 01/09/23 05:08 Hgb 10.6 g/dL (12.0-16.0) L 01/09/23 05:08 Hct 33.3 % (37.0-47.0) L 01/09/23 05:08 MCV 91.0 fL (81.0-99.0) 01/09/23 05:08 MCH 29.0 pg (27.0-31.0) 01/09/23 05:08 MCHC 31.8 g/dL (32.0-36.0) L 01/09/23 05:08 RDW 11.9 % (12.0-15.0) L 01/09/23 05:08 Plt Count 381 10^3/uL (130-450) 01/09/23 05:08 MPV 8.8 fL (7.9-10.8) 01/09/23 05:08 Neut # (Auto) 7.3 10^3/uL (1.5-6.6) H 01/09/23 05:08 Lymph # (Auto) 2.8 10^3/uL (1.5-3.5) 01/09/23 05:08 [place] # (Auto) 0.9 10^3/uL (0.0-1.0) 01/09/23 05:08 Eos # (Auto) 0.1 10^3/uL (0.0-0.7) 01/09/23 05:08 Baso # (Auto) 0.0 10^3/uL (0.0-0.1) 01/09/23 05:08 Absolute Nucleated RBC 0.00 x10^3/uL 01/09/23 05:08 Nucleated RBC % 0.0 /100WBC 01/09/23 05:08 ESR > 140 mm/Hr (0-20) H 01/09/23 05:08 Sodium 135 mmol/L (135-145) 01/09/23 05:08 Potassium 3.5 mmol/L (3.5-4.5) 01/09/23 05:08 Chloride 102 mmol/L (101-111) 01/09/23 05:08 Carbon Dioxide 23 mmol/L (21-32) 01/09/23 05:08 Anion Gap 10.0 (6-13) 01/09/23 05:08 BUN 11 mg/dL (6-20) 01/09/23 05:08 Creatinine 0.7 mg/dL (0.6-1.3) 01/09/23 05:08 Estimated GFR (MDRD) 98 (>89) 01/09/23 05:08 Glucose 215 mg/dL (74-104) H 01/09/23 05:08 POC Whole Bld Glucose 176 mg/dL (70 - 100) H 01/09/23 11:15 Estimat Average Glucose 263 mg/dL (70-100) H 01/07/23 12:52 Hemoglobin A1c % 10.8 % (4.27-6.07) H 01/07/23 12:52 Uric Acid 3.4 mg/dL (2.3-6.6) 01/09/23 05:08 Calcium 8.7 mg/dL (8.5-10.3) 01/09/23 05:08 Total Bilirubin 0.3 mg/dL (0.2-1.0) 01/07/23 12:52 AST 10 IU/L (10-42) 01/07/23 12:52 ALT 8 IU/L (10-60) L 01/07/23 12:52 Alkaline Phosphatase 130 IU/L (42-121) H 01/07/23 12:52 C-Reactive Protein 17.5 mg/dL (<0.5) H 01/09/23 05:08 Total Protein 8.6 g/dL (6.4-8.9) 01/07/23 12:52 Albumin 3.8 g/dL (3.2-5.5) 01/07/23 12:52 Globulin 4.8 g/dL (2.1-4.2) H 01/07/23 12:52 Albumin/Globulin Ratio 0.8 (1.0-2.2) L 01/07/23 12:52 Lipase 22 U/L (11-82) 01/07/23 12:52 Urine HCG, Qual NEGATIVE 01/09/23 11:08 Fluid Source SYNOVIAL 01/08/23 16:50 Fluid Color YELLOW 01/08/23 16:50 Fluid Clarity CLOUDY 01/08/23 16:50 Fluid WBC 34847 /mm^3 11/08/23 16:50 Fluid RBC 7000 /mm^3 01/08/23 16:50 Fluid Neutrophils % 81 % 01/08/23 16:50 Fluid Lymphocytes % 15 % 01/08/23 16:50 Fluid Macrophages % 4 % 01/08/23 16:50 Fld Mesothelial Cell % Not Reportable 01/08/23 16:50 Fluid Crystals NONE SEEN 01/08/23 16:50 Rheumatoid Factor NEGATIVE (Negative) 01/09/23 05:08 - Procedures Procedures: Procedures DRAINAGE OF LEFT KNEE JOINT, PERC ENDO APPROACH, DIAGN (04/02/20) INSERTION OF INFUSION DEVICE INTO R ATRIUM, PERC APPROACH (04/02/20) Sepsis Event Note (H) - Evaluation Current Stage of Sepsis: Sepsis Possible source of Sepsis: positive: Bone/Joint - Sepsis Criteria Sepsis Criteria: Recorded Heart Rate greater than 90 bpm, Recorded Respiratory Rate greater than 20 Current Medications - Current Medications Current Medications: Active Medications Generic Name Dose Route Start Last Admin Trade Name Freq PRN Reason Stop Dose Admin Acetaminophen 650 mg 01/08/23 12:56 Acetaminophen 325 Mg Tablet PO Q4HR PRN Pain 1 to 4, or Fever Hydrocodone Bitart/Acetaminophen 1 tab 01/08/23 12:56 01/08/23 21:30 Hydrocod/Acetam 5/325 Mg Tablet PO 1 tab Q4HR PRN Administration Pain 5 to 7 Atropine Sulfate 0.5 mg 01/09/23 09:48 Atropine Abboject 1 Mg/10 Ml Syringe IVP 01/10/23 09:48 Q5M PRN Bradycardia Celecoxib 100 mg 01/09/23 13:00 01/09/23 13:41 Celecoxib 100 Mg Capsule PO 100 mg BID NURYS Administration Ephedrine Sulfate 10 mg 01/09/23 09:48 Ephedrine 50 Mg/Ml Vial IVP 01/10/23 09:48 Q5M PRN HYPOTENSION Fentanyl 25 - 50 mcg 01/09/23 09:48 Fentanyl 100 Mcg/2 Ml Vial IVP 01/10/23 09:48 Q5M PRN BREAKTHROUGH PAIN (2nd Choice) Gabapentin 300 mg 01/08/23 13:40 Gabapentin 300 Mg Capsule PO TID PRN PAIN 1-4 Hydromorphone HCl 0.5 mg 01/08/23 12:56 Hydromorphone 0.5 Mg/0.5 Ml Syringe IVP Q2H PRN Pain 8 to 10 Hydromorphone HCl 0.2 - 0.6 mg 01/09/23 09:48 Hydromorphone 0.5 Mg/0.5 Ml Syringe IVP 01/10/23 09:48 Q5M PRN PAIN (First Choice) Piperacillin Sod/Tazobactam 100 mls @ 200 mls/hr 01/08/23 14:00 01/09/23 14:36 Sod 4.5 gm/ Sodium Chloride IV 01/18/23 13:59 Infused Q6H NURYS Infusion Lactated Ringer's 1,000 mls @ 100 mls/hr 01/09/23 10:00 01/09/23 11:21 Lr IV 01/09/23 19:59 100 mls/hr .Q10H NURYS Administration Insulin Glargine-yfgn 10 unit 01/09/23 08:00 01/09/23 09:09 Insulin Glargine-Yfgn 300 Unit/3 Ml Pen SUBQ 10 unit QDBREAKFAST NURYS Administration Insulin Human Lispro 2 - 10 unit 01/09/23 17:00 Insulin Lispro 300 Unit/3 Ml Pen SUBQ 0800,1200,1700,2100 NURYS Protocol Naloxone HCl 0.1 mg 01/09/23 09:48 Naloxone 0.4 Mg/Ml Vial IVP 01/10/23 09:48 Q2M PRN RESP RATE <8 Ondansetron HCl 4 mg 01/08/23 12:56 01/09/23 08:14 Ondansetron Odt 4 Mg Tablet TL 4 mg Q6HR PRN Administration Nausea / Vomiting Ondansetron HCl 4 mg 01/09/23 09:48 Ondansetron 4 Mg/2 Ml Vial IVP 01/10/23 09:48 ONCE PRN N/V (First Choice) Norgestimate- 1 each 01/09/23 09:00 01/09/23 10:19 Ethinyl Estradiol [ PO 1 each Tri-Sprintec Tablet] DAILY NURYS Administration 1 Each Tablet Prochlorperazine Maleate 5 mg 01/09/23 10:10 Prochlorperazine 5 Mg Tablet PO Q6HR PRN Nausea / Vomiting Sodium Chloride 10 ml 01/08/23 12:56 01/08/23 21:28 Sodium Chloride Flush 0.9% 10 Ml Syringe IVP 10 ml PRN PRN Administration NEEDED PER PROVIDER ORDERS Sodium Chloride 10 ml 01/08/23 17:00 01/09/23 09:11 Sodium Chloride Flush 0.9% 10 Ml Syringe IVP 10 ml 0100,0900,1700 NURYS Administration Insulin Glargine [Lantus Solostar] 10 units SUBQ BID 04/01/20 Gabapentin [Neurontin] 300 mg PO TID PRN 01/05/23 Norgestimate-Ethinyl Estradiol [Tri-Sprintec Tablet] 1 tab ORAL DAILY 01/05/23 Sitagliptin Phos/Metformin HCl [Janumet Xr 50-500 mg Tablet] 2 each PO DAILY 01/09/23
[2023-01-09] MEDS: INSULIN LISPRO 300 UNIT/3 ML PEN SUBQ SCH ×2 (16:55→20:56)
[2023-01-10] MEDS: PIPERACILLIN/TAZOBACTAM 4.5 GM in SODIUM CHLORIDE 0.9% MINIBAG 100 ML IV SCH ×2 (01:49→07:58)
[2023-01-10] MEDS: SODIUM CHLORIDE FLUSH 0.9% 10 ML SYRINGE IVP SCH ×2 (01:49→07:59)
[2023-01-10] MEDS: ONDANSETRON ODT 4 MG TABLET TL PRN (03:20)
[2023-01-10 06:01] LABS: BASOPHILS % (AUTO) 0.2 %; EOSINOPHILS # (AUTO) 0.1 10^3/uL (0.0-0.7); EOSINOPHILS % (AUTO) 0.9 %; HCT - HEMATOCRIT 31.8 % (37.0-47.0); LYMPHOCYTES % (AUTO) 28.1 %; MEAN CORPUSCULAR HEMOGLOBIN 28.4 pg (27.0-31.0); MEAN CORPUSCULAR HGB CONC 31.4 g/dL (32.0-36.0); MEAN CORPUSCULAR VOLUME 90.3 fL (81.0-99.0); MONOCYTES # (AUTO) 0.8 10^3/uL (0.0-1.0); NEUTROPHILS # (AUTO) 6.8 10^3/uL (1.5-6.6); NEUTROPHILS % (AUTO) 63.3 %; PLT - PLATELET COUNT 392 10^3/uL (130-450); RED BLOOD COUNT 3.52 10^6/uL (4.20-5.40); RED CELL DISTRIBUTION WIDTH 12.2 % (12.0-15.0); WHITE BLOOD COUNT 10.7 x10^3/uL (4.8-10.8)
[2023-01-10 06:20] LABS: CALCIUM 8.6 mg/dL (8.5-10.3); CRP - C-REACTIVE PROTEIN 13.9 mg/dL (<0.5); POTASSIUM 3.9 mmol/L (3.5-4.5)
[2023-01-10 07:29] VITALS: O2SAT 99
[2023-01-10] MEDS: INSULIN GLARGINE-YFGN 300 UNIT/3 ML PEN SUBQ SCH (07:53)
[2023-01-10] MEDS: INSULIN LISPRO 300 UNIT/3 ML PEN SUBQ SCH (07:54)
[2023-01-10] MEDS: CELECOXIB 100 MG CAPSULE PO SCH (07:55)
[2023-01-10] MEDS: NORGESTIMATE ETHINYL ESTRADIOL PO SCH (07:56)
--- NOTE | 2023-01-10 11:15 | Discharge Plan ---
Discharge Plan Problem Reviewed?: Yes Disposition: Home, Self Care Condition: Good Prescriptions: Celecoxib [CeleBREX] 100 mg PO BID #60 cap cephALEXin [Keflex] 500 mg PO Q6H #28 tab Diet: Diabetic Activity Restrictions: No Restrictions Shower Restrictions: No Driving Restrictions: No Weight Bearing: Full Weight No Smoking: If you smoke, Please STOP! Call for help. Follow-up with: Mathew Landeros MD [Provider Admit Priv/Credential] -
--- NOTE | 2023-01-10 11:22 | DISCHARGE SUMMARY ---
"Discharge Summary Discharge Date: 01/10/23 Discharging Provider: Terrence Oliver Primary Care Provider: Navy Hutson Code Status: Attempt Resuscitation Condition at Discharge: Good Discharge Disposition: 01 Home, Self Care - DIAGNOSES Discharge Diagnoses with Status of Each Condition: (1) Inflammatory arthritis Improving. Still undergoing workup. Discharged on oral keflex and NSAIDs. Cultures are negative. Will follow-up with orthopedic surgery early next week. (2) DM hyperosmolarity type II, uncontrolled Ongoing management. A1c 10.8 this admission. - HPI History of Present Illness: Patient is a 32-year-old female with a past medical history of poorly controlled type 2 diabetes who presented to the ED due to nontraumatic swelling of her left knee which began approximately 2 days prior. Patient does have a prior history of a septic knee which required an OR washout in 2020. During his hospitalization she required 2 I&D procedures and was given 1 dose of IV Dalvan ce 1500 mg and lieu of long-term antibiotics. In the ED during this hospitalization, a joint aspiration was performed showing 38,900 WBCs. This fluid has been sent out for culture. There was no evidence of crystals in the aspirate. X-ray showed a small joint effusion. Case was discussed with orthopedic surgery and she was admitted to the floor. Patient is unable to bear weight on her affected extremity. She denies any fever or chills but is in excruciating pain with any movement of her left knee. She reports she is a type II diabetic and her last A1c was 11.7 in 2020. She also has a history of gestational diabetes. Patient has no known cardiac or pulmonary history. - CONSULTS | PROCEDURES Consultations: Orthopedic surgery Procedures: Athrocentesis x2. - HOSPITAL COURSE Hospital Course: Patient is a 32-year-old female who presented to the ED due to complaints of left knee swelling which began 2 days prior. In the ED she underwent an arthrocentesis due to concern for septic arthritis. There was evidence of 38 K white blood cells therefore she was admitted and started on IV vancomycin and Zosyn. She was eval by orthopedic surgery who performed a repeat arthrocentesis the following day with similar results. She was initially scheduled for a washout of her left knee in the OR however her symptoms began to improve with anti-inflammatories and antibiotics. Cultures remain negative throughout her hospitalization. She was able to increase her range of motion and bear weight on the affected extremity, the decision was made to discharge the patient home and have her follow-up as an outpatient with orthopedic surgery. Plan of care was extensively discussed with orthopedic surgery. Her CRP on discharge was 13.9. We discharged her on oral Keflex for 7 days which should take her to her follow-up as well as Celebrex for anti-inflammatory. The exact etiology of her knee pain is unclear at this time although concern for septic arthritis is low given her negative cultures. We did perform a rheumatoid factor which was negative. Her RASHAD and anti-CCP antibodies are currently pending. - ALLERGIES Allergies/Adverse Reactions: Allergies Allergy/AdvReac Type Severity Reaction Status Date / Time adhesive tape Allergy Rash Verified 01/07/23 12:33 latex Allergy Rash Verified 01/07/23 12:33 - MEDICATIONS Home Medications: Ambulatory Orders Medication Instructions Recorded Confirmed Insulin Glargine [Lantus Solostar] 10 units SUBQ BID 04/01/20 01/07/23 Insulin Aspart [NovoLOG] 2 - 10 unit SUBQ 04/06/20 01/07/23 0800,1200,1700,2100 #5 pen Gabapentin [Neurontin] 300 mg PO TID PRN 01/05/23 01/07/23 Norgestimate-Ethinyl Estradiol 1 tab ORAL DAILY 01/05/23 01/07/23 [Tri-Sprintec Tablet] Sitagliptin Phos/Metformin HCl 2 each PO DAILY 01/09/23 01/09/23 [Janumet Xr 50-500 mg Tablet] Celecoxib [CeleBREX] 100 mg PO BID #60 cap 01/10/23 cephALEXin [Keflex] 500 mg PO Q6H #28 tab 01/10/23 - PHYSICAL EXAM AT DISCHARGE General Appearance: positive: No acute distress, Alert Eyes Bilateral: positive: Normal inspection, PERRL, EOMI Respiratory: positive: Chest non-tender, No respiratory distress, Breath sounds nml Cardiovascular: positive: Regular rate & rhythm, No murmur, No gallop Abdomen: positive: Non-tender, No organomegaly, Nml bowel sounds Extremities: positive: Non-tender, Full ROM (ROM limited in her left knee due to swelling and pain. Is much improved compared to her admission.), Nml appearance (Left knee swelling.), No pedal edema, Joint swelling Neurologic/Psychiatric: positive: Oriented x3, CN's nml (2-12) - LABS Result Diagrams: 01/10/23 05:23 01/10/23 05:23 - DIAGNOSTIC IMAGING Diagnostic Imaging Results: Final report reviewed - SEPSIS Current Stage of Sepsis: Ruled out Possible source of Sepsis: Bone/Joint Sepsis Criteria: Recorded Heart Rate greater than 90 bpm, Recorded Respiratory Rate greater than 20 - FOLLOW UP Follow Up: Follow-up with Orthopedic surgery on 01/13. - TIME SPENT Time Spent in Discharge (Minutes): 35"
--- NOTE | 2023-01-10 11:32 | PROVIDER PROGRESS NOTE ---
Subjective - General Admit Date: 01/08/23 - Review of Systems Genitourinary: positive: No symptoms All Other Systems: positive: Reviewed and negative - Other Other Information/Narrative: The patient is cheerful, not in any distress, anxious to go home. Her left knee pain and swelling continue to improve, her knee motion continues to improve and she is able to weight-bear on the left leg now with minimal pain. She denies fever or chills, no night sweats. Objective - Patient Data Vital Signs: Vital Signs x48h Temp Pulse Resp BP Pulse Ox 01/10/23 07:23 36.6 C 78 16 105/72 99 Weight: Weight 01/08/23 01/09/23 01/10/23 23:59 23:59 23:59 Weight (kg) 85 kg 85 kg 85 kg Intake & Output: Intake and Output Totals x24h 01/08/23 01/09/23 01/10/23 23:59 23:59 23:59 Intake Total 1650 2320 1180 Output Total 300 Balance 1350 2320 1180 - Lab Results Lab Results: 01/10/23 05:23 01/10/23 05:23 Other Lab Results: Lab Results x24hrs 01/10/23 01/10/23 01/10/23 Range/Units 11:05 07:16 05:23 WBC (4.8-10.8) x10^3/uL RBC (4.20-5.40) 10^6/uL Hgb (12.0-16.0) g/dL Hct (37.0-47.0) % MCV (81.0-99.0) fL MCH (27.0-31.0) pg MCHC (32.0-36.0) g/dL RDW (12.0-15.0) % Plt Count (130-450) 10^3/uL MPV (7.9-10.8) fL Neut # (Auto) (1.5-6.6) 10^3/uL Lymph # (Auto) (1.5-3.5) 10^3/uL Benzie # (Auto) (0.0-1.0) 10^3/uL Eos # (Auto) (0.0-0.7) 10^3/uL Baso # (Auto) (0.0-0.1) 10^3/uL Absolute Nucleated RBC x10^3/uL Nucleated RBC % /100WBC ESR > 140 H (0-20) mm/Hr Sodium (135-145) mmol/L Potassium (3.5-4.5) mmol/L Chloride (101-111) mmol/L Carbon Dioxide (21-32) mmol/L Anion Gap (6-13) BUN (6-20) mg/dL Creatinine (0.6-1.3) mg/dL Estimated GFR (MDRD) (>89) Glucose (74-104) mg/dL POC Whole Bld Glucose 229 H 204 H (70 - 100) mg/dL Calcium (8.5-10.3) mg/dL C-Reactive Protein (<0.5) mg/dL 01/10/23 01/10/23 01/09/23 Range/Units 05:23 05:23 20:53 WBC 10.7 (4.8-10.8) x10^3/uL RBC 3.52 L (4.20-5.40) 10^6/uL Hgb 10.0 L (12.0-16.0) g/dL Hct 31.8 L (37.0-47.0) % MCV 90.3 (81.0-99.0) fL MCH 28.4 (27.0-31.0) pg MCHC 31.4 L (32.0-36.0) g/dL RDW 12.2 (12.0-15.0) % Plt Count 392 (130-450) 10^3/uL MPV 9.0 (7.9-10.8) fL Neut # (Auto) 6.8 H (1.5-6.6) 10^3/uL Lymph # (Auto) 3.0 (1.5-3.5) 10^3/uL Benzie # (Auto) 0.8 (0.0-1.0) 10^3/uL Eos # (Auto) 0.1 (0.0-0.7) 10^3/uL Baso # (Auto) 0.0 (0.0-0.1) 10^3/uL Absolute Nucleated RBC 0.00 x10^3/uL Nucleated RBC % 0.0 /100WBC ESR (0-20) mm/Hr Sodium 136 (135-145) mmol/L Potassium 3.9 (3.5-4.5) mmol/L Chloride 104 (101-111) mmol/L Carbon Dioxide 24 (21-32) mmol/L Anion Gap 8.0 (6-13) BUN 13 (6-20) mg/dL Creatinine 1.0 (0.6-1.3) mg/dL Estimated GFR (MDRD) 65 L (>89) Glucose 224 H (74-104) mg/dL POC Whole Bld Glucose 102 H (70 - 100) mg/dL Calcium 8.6 (8.5-10.3) mg/dL C-Reactive Protein 13.9 H (<0.5) mg/dL 01/09/23 Range/Units 16:27 WBC (4.8-10.8) x10^3/uL RBC (4.20-5.40) 10^6/uL Hgb (12.0-16.0) g/dL Hct (37.0-47.0) % MCV (81.0-99.0) fL MCH (27.0-31.0) pg MCHC (32.0-36.0) g/dL RDW (12.0-15.0) % Plt Count (130-450) 10^3/uL MPV (7.9-10.8) fL Neut # (Auto) (1.5-6.6) 10^3/uL Lymph # (Auto) (1.5-3.5) 10^3/uL Benzie # (Auto) (0.0-1.0) 10^3/uL Eos # (Auto) (0.0-0.7) 10^3/uL Baso # (Auto) (0.0-0.1) 10^3/uL Absolute Nucleated RBC x10^3/uL Nucleated RBC % /100WBC ESR (0-20) mm/Hr Sodium (135-145) mmol/L Potassium (3.5-4.5) mmol/L Chloride (101-111) mmol/L Carbon Dioxide (21-32) mmol/L Anion Gap (6-13) BUN (6-20) mg/dL Creatinine (0.6-1.3) mg/dL Estimated GFR (MDRD) (>89) Glucose (74-104) mg/dL POC Whole Bld Glucose 189 H (70 - 100) mg/dL Calcium (8.5-10.3) mg/dL C-Reactive Protein (<0.5) mg/dL - Current Medications Current Medications: Current Medications Generic Name Dose Route Start Last Admin Trade Name Freq PRN Reason Stop Dose Admin Hydrocodone Bitart/Acetaminophen 1 tab 01/08/23 12:56 01/08/23 21:30 Hydrocod/Acetam 5/325 Mg Tablet PO 1 tab Q4HR PRN Administration Pain 5 to 7 Celecoxib 100 mg 01/09/23 13:00 01/10/23 07:55 Celecoxib 100 Mg Capsule PO 100 mg BID NURYS Administration Piperacillin Sod/Tazobactam 100 mls @ 200 mls/hr 01/08/23 14:00 01/10/23 09:58 Sod 4.5 gm/ Sodium Chloride IV 01/18/23 13:59 Infused Q6H NURYS Infusion Insulin Glargine-yfgn 10 unit 01/09/23 08:00 01/10/23 07:53 Insulin Glargine-Yfgn 300 Unit/3 Ml Pen SUBQ 10 unit QDBREAKFAST NURYS Administration Insulin Human Lispro 2 - 10 unit 01/09/23 17:00 01/10/23 07:54 Insulin Lispro 300 Unit/3 Ml Pen SUBQ 4 unit 0800,1200,1700,2100 NURYS Administration Protocol Ondansetron HCl 4 mg 01/08/23 12:56 01/10/23 03:20 Ondansetron Odt 4 Mg Tablet TL 4 mg Q6HR PRN Administration Nausea / Vomiting Norgestimate- 1 each 01/09/23 09:00 01/10/23 07:56 Ethinyl Estradiol [ PO 1 each Tri-Sprintec Tablet] DAILY NURYS Administration 1 Each Tablet Sodium Chloride 10 ml 01/08/23 12:56 01/08/23 21:28 Sodium Chloride Flush 0.9% 10 Ml Syringe IVP 10 ml PRN PRN Administration NEEDED PER PROVIDER ORDERS Sodium Chloride 10 ml 01/08/23 17:00 01/10/23 07:59 Sodium Chloride Flush 0.9% 10 Ml Syringe IVP 10 ml 0100,0900,1700 NURYS Administration - Physical Exam Comments/Other: She is happy and cheerful. Her left knee is improving each day. She has full extension, 110 degrees flexion. Her effusion to the left knee has decreased as so as the heat or synovitis. She is able to do a straight leg raise easily. She has been up ambulating to the bathroom and about her room. She is using a single crutch to ambulate. Impression/Plan - Problem List Problem List: 1. Monoarticular inflammatory arthritis left knee The blood cultures and synovial fluid cultures from the left knee remain normal. Her CBC shows a decrease in her white blood cell count and her C-reactive protein has decreased as well. Her arthritis panel is still pending; rheumatoid factor is negative. She has made excellent response to treatment and has been on antibiotics and anti-inflammatory medication. In the absence of positive culture, septic arthritis is unlikely. However she does have risk factors including poorly controlled diabetes, hidradenitis suppurativa and a history in the past of arthritis to the left knee although not clearly septic but treated i n part for such. 2. Diabetes mellitus, not well controlled 3. Hidradenitis suppurativa to axillary and inguinal folds I have discussed the case with Dr. Oliver our hospitalist. The plan of treatment is as follows: 1. Keflex 500 mg 4 times daily 2. Celebrex as suggested 3. Patient to work on diabetic control 4. Dermatologic follow-up for her hidradenitis suppurativa 5. Orthopedic follow-up in the orthopedic clinic on 01/13/2023 6. Ambulate as tolerated with walking aid such as crutch or cane, elevate and ice left knee 7. Discharge to home today
[2023-01-10 12:00] VITALS: BP 107/79
[2023-01-10 17:09] LABS: ANTI-DNA (DS) AB QN 24 IU/mL (0-9); CENTROMERE B ANTIBODIES <0.2 AI (0.0-0.9); CHROMATIN ANTIBODIES <0.2 AI (0.0-0.9); JO-1 AB <0.2 AI (0.0-0.9); RIBOSOMAL P ANTIBODIES <0.2 AI (0.0-0.9); RNP ANTIBODIES <0.2 AI (0.0-0.9); SCLERODERMA-70 ANTIBODIES <0.2 AI (0.0-0.9); SJOGREN'S ANTI-SS-A <0.2 AI (0.0-0.9); SJOGREN'S ANTI-SS-B <0.2 AI (0.0-0.9); SMITH ANTIBODIES <0.2 AI (0.0-0.9); SMITH/RNP ANTIBODIES <0.2 AI (0.0-0.9)
[2023-01-11 18:07] LABS: CYCLIC CITRULLINATED PEP IGG/A 6 units (0-19)
== END 2023-01-10 11:40 | disposition home or self-care (01) | DRG 553 ==
LOC: ED 12:11 → MS2 01-08 12:56
PROVIDERS: ADMIT Family Medicine; ATTEND Family Medicine
PROC: 0S9D3ZZ Drainage of Left Knee Joint, Percutaneous Approach (ICD-10-PCS; principal; 2023-01-08)
DX: M13.862 Other specified arthritis, left knee (principal); E11.00 Type 2 diabetes mellitus with hyperosmolarity without nonketotic hyperglycemic-hyperosmolar coma (NKHHC); L73.2 Hidradenitis suppurativa; Z79.4 Long term (current) use of insulin; Z87.891 Personal history of nicotine dependence; E66.9 Obesity, unspecified; Z68.34 Body mass index [BMI] 34.0-34.9, adult
CPT/HCPCS: 20610; 36415; 80048; 80053; 81025; 83036; 83516; 83690; 84550; 85025; 85651; 86140; 86200; 86225; 86235; 86430; 87040; 87070; 87075; 87205; 89051; 89060; 96365; 96366; 96375; 96376; 99284; 99285; A9270; J1170; J1815; J3370; J7120; Q0162

== ENCOUNTER 2023-08-21 10:05 | Outpatient (CLI) | payer OTHER ==
--- NOTE | 2023-08-21 12:34 | XRAY Report ---
PROCEDURE: Ankle 3+V LT INDICATIONS: SPRAIN OF OTHER LIGAMENT OF LEFT ANKLE TECHNIQUE: 3 views of the ankle were acquired. COMPARISON: Left ankle dated 01/05/2023. FINDINGS: Bones: No fractures or dislocations. Ankle mortise is normally aligned. No suspicious bony lesions . Soft tissues: No tibiotalar joint effusion. Achilles tendon appears normal. IMPRESSION: No acute bony abnormality. Reviewed by: Steven Navarrete MD on 08/21/2023 12:33 PM PDT Approved by: Steven Navarrete MD on 08/21/2023 12:33 PM PDT Station ID: [id number]
== END 2023-08-21 10:43 | disposition home or self-care (01) ==
LOC: DI.N 10:05
PROVIDERS: ATTEND Family Medicine
DX: S93.492A Sprain of other ligament of left ankle, initial encounter (principal)

== ENCOUNTER 2023-09-09 07:57 | Emergency (ER) | payer OTHER ==
--- NOTE | 2023-09-09 08:33 | ED Physician Documentation ---
PD HPI LOWER EXT INJURY - Stated complaint Stated Complaint: LT ANKLE PX,SWELLING - Chief complaint Chief Complaint: Trauma Ext - History obtained from History obtained from: Patient - History of Present Illness PD HPI LOW EXT INJURY LOCATION: Left, Ankle Type of injury: Twist (she states had walked with new shoes that had slight elevated heel and onset pain foot and achilles next day, but has persisted despite regular shoes, NSAIDs and use of boot orthosis from [facility].). No: Fall, Blunt / blow Timing - onset: How many months ago (1) Timing - details: Gradual onset, Still present, Constant Review of Systems Skin: denies: Rash, Lesions Neurologic: denies: Focal weakness, Numbness PD PAST MEDICAL HISTORY - Past Medical History Past Medical History: Yes Cardiovascular: None Respiratory: None Neuro: None Endocrine/Autoimmune: Type 2 diabetes GI: GERD INFORMATION MANAGEMENT SPECIALIST: None : Other HEENT: None Psych: Depression Musculoskeletal: Osteoarthritis, Other Derm: Other - Past Surgical History Past Surgical History: Yes Ortho: Other /INFORMATION MANAGEMENT SPECIALIST: section HEENT: Tonsil/Adenoidectomy - Present Medications Home Medications: Ambulatory Orders Medication Instructions Recorded Confirmed Insulin Glargine [Lantus Solostar] 10 units SUBQ BID 04/01/20 09/09/23 Insulin Aspart [NovoLOG] 2 - 10 unit SUBQ 04/06/20 09/09/23 0800,1200,1700,2100 #5 pen Gabapentin [Neurontin] 300 mg PO TID PRN 01/05/23 09/09/23 Norgestimate-Ethinyl Estradiol 1 tab ORAL DAILY 01/05/23 09/09/23 [Tri-Sprintec Tablet] Celecoxib [CeleBREX] 100 mg PO BID #60 cap 01/10/23 09/09/23 Citalopram [CeleXA] 10 mg PO DAILY 09/09/23 09/09/23 Colchicine 0.6 mg PO BID #20 tablet 09/09/23 Diclofenac Sodium 1% Gel [Voltaren 2 gm TOP QID #50 gm 09/09/23 Gel] Dulaglutide [Trulicity] 0.75 mg SQ Q7D 09/09/23 09/09/23 HYDROcod/ACETAM 5/325 [[place] 5/325] 1 ea PO Q6H PRN #20 tablet 09/09/23 ISOtretinoin [Accutane] 20 mg PO BID 09/09/23 09/09/23 Lidocaine Patch 5% [Lidoderm Patch] 1 patch TOP DAILY PRN #10 patch 09/09/23 Metformin HCl [Metformin ER 500 mg PO BID 09/09/23 09/09/23 Gastric] - Allergies Allergies/Adverse Reactions: Allergies Allergy/AdvReac Type Severity Reaction Status Date / Time adhesive tape Allergy Rash Verified 09/09/23 08:06 latex Allergy Rash Verified 09/09/23 08:06 - Social History Does the pt smoke?: No Smoking Status: Never smoker Does the pt drink ETOH?: Yes Does the pt have substance abuse?: Yes Substance Use and Type: Marijuana, CBD oil / Products - Immunizations Immunizations are current?: Yes - POLST Patient has POLST: No POLST Status: Full Code PD ED PE NORMAL - Vitals Vital signs reviewed: Yes - General General: Alert and oriented X 3, Well developed/nourished - Derm Derm: Normal color, Warm and dry - Extremities Extremities: No edema, No calf tenderness / cord, Other (left ankle with tenderness some in distal Achilles but only mild pain with passive dorsiflexion. Also very tender lateral ankle distal and anterior to malleolus, with pain on inversion, c/w tendonitis fo ATFL. plantar area not tender. ) - Neuro Neuro: Alert and oriented X 3, No motor deficit, No sensory deficit Results - Vitals Vitals: Oxygen O2 Source Room air PD Medical Decision Making - ED course Complexity details: considered differential, d/w patient Departure - Departure Disposition: 01 Home, Self Care Clinical Impression: Achilles tendonitis, Ankle tendinitis Condition: Stable Record reviewed to determine appropriate education?: Yes Follow-Up: HEBERT MUNSON ARNP [Primary Care Provider] - Prescriptions: Colchicine 0.6 mg PO BID #20 tablet Lidocaine Patch 5% [Lidoderm Patch] 1 patch TOP DAILY PRN #10 patch PRN Reason: pain HYDROcod/ACETAM 5/325 [[place] 5/325] 1 ea PO Q6H PRN #20 tablet PRN Reason: Pain Diclofenac Sodium 1% Gel [Voltaren Gel] 2 gm TOP QID #50 gm Comments: Portion of your ankle symptoms seem to relate to inflammation or tightness in the Achilles tendon and plantar fascia. There is tenderness throughout the rest of the ankle and top of the foot as well. For the Achilles and plantar aspect, I would suggest adding a heel lift gel cup to both heels to raise the angle of the ankle and decrease some of the tension in those structures. In order to try a different anti-inflammatories since the current combination is not helping, and to minimize interactions with your diabetes and other conditions, I would suggest continuing with your Celexa sib and stopping the ibuprofen. Instead we can add an a different category of anti-inflammatory called colchicine. This is associated with gout treatment but is actually an anti-inflammatory for other conditions in general. It operates by different mechanism. In addition do local antiinflammatories around the most tender areas with the diclofenac/Voltaren gel 2 or 3 times daily. You can also decrease some of the symptoms with lidocaine patches around the Achilles and plantar or medial arch area. At acetaminophen a few times daily for pain. Add hydrocodone/acetaminophen if needed for worse pain. I sent your prescriptions to your preferred pharmacy. 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 I am prescribing a short course of narcotic pain medication for you. These are potentially dangerous and addictive medications that should be used carefully. These medications may constipate you. Take an [id number] stool softener such as docusate twice daily with plenty of water while taking these medications. If you go 24 hours without a bowel movement, take [id number] MiraLAX, per package instructions. Do not drink or drive while taking these medications. If you received narcotic or sedating medications while in the emergency department do not drive for 24 hours. Store this medication in a safe, secure place and out of reach of children. It is a violation of federal law to give or sell this medication to another person or to use in a manner other than prescribed. The ED will not refill narcotic prescriptions, including prescriptions lost or stolen. You can dispose of unwanted medications at the [facility]'s office or at several pharmacies such as [facility]. Forms: PCP List Discharge Date/Time: 09/09/23 10:31
[2023-09-09 08:50] VITALS: O2SAT 98
[2023-09-09] MEDS: KETOROLAC 30 MG/ML VIAL IM STA (09:41)
[2023-09-09 10:38] VITALS: BP 107/81
== END 2023-09-09 10:31 | disposition home or self-care (01) ==
LOC: ED 07:57
DX: M76.62 Achilles tendinitis, left leg (principal); M77.52 Other enthesopathy of left foot and ankle; X50.1XXA Overexertion from prolonged static or awkward postures, initial encounter; Y93.01 Activity, walking, marching and hiking
CPT/HCPCS: 96372; 99283

== ENCOUNTER 2023-09-12 07:55 | Outpatient (CLI) | payer OTHER ==
--- NOTE | 2023-09-12 14:51 | MRI Report ---
PROCEDURE: Ankle LT WO INDICATIONS: LEFT ANKLE PAIN TECHNIQUE: Noncontrast sagittal T1 spin echo and T2 fast spin echo with fat saturation, axial proton density fas t spin echo and T2 fast spin echo with fat saturation, coronal T1 spin echo and T2 fast spin echo wit h fat saturation through the ankle/hindfoot. COMPARISON: Left ankle radiograph dated 08/21/2023 and 01/05/2023. FINDINGS: Image quality: Excellent. Bones and joints: 4 mm osteochondral injury involving medial weightbearing portion of talar dome is s een with mild surrounding edema. There is no other area of abnormal marrow signal. No fracture or dis location. Small to moderate tibiotalar and subtalar joint effusion is noted, no gross intra-articular loose bodies. Medial structures: The posterior tibialis, flexor digitorum longus, and flexor hallucis longus tendo ns are thickened with fluid distending tendon sheath at the level of mid to distal talus and talonavi cular joint. The posterior tibial neurovascular bundle appears normal within the tarsal tunnel, witho ut extrinsic mass effect. The deltoid ligament and spring ligament are mildly thickened with intrasu bstance T2 hyperintense signal. Lateral structures: The anterior talofibular, calcaneofibular, and posterior talofibular ligaments a ppear intact. More superiorly, the anterior and posterior tibiofibular ligaments appear normal, as i s the intermalleolar ligament. The tibiofibular syndesmosis is normal in width at 2 mm or less. The peroneus longus and brevis tendons demonstrate normal location and morphology. Adjacent bony perone al tubercle and retrotrochlear prominence are normal in size. The sinus tarsi demonstrates normal fa tty signal, without edema, fibrosis, or cyst formation. Visualized sinus tarsi components (cervical ligament, interosseous talocalcaneal ligament, roots of the inferior extensor retinaculum) appear nor mal. Anterior structures: The tibialis anterior, extensor hallucis longus, and extensor digitorum longus tendons appear intact. Posterior and plantar structures: Achilles tendon is intact. Medial and lateral bands of the planta r fascia are of normal thickness. No abductor digiti quinti muscle atrophy to suggest Peralta neuropa thy. IMPRESSION: 1. 4 mm osteochondral injury involving medial weightbearing portion of talar dome. Moderate ankle katie nt effusion. No fracture or dislocation. No intra-articular loose bodies. 2. Low to moderate grade tenosynovitis and intrasubstance partial thickness tear involving flexor ten dons at the level of mid to distal talus and talonavicular joint most notably involving posterior tib ialis tendon. No full-thickness ankle tendon rupture. Extensor, peroneus and Achilles tendons are int act. 3. Low-grade sprain/intrasubstance partial thickness tear involving the deltoid ligament and spring l igament. Lateral ankle ligaments are intact. Reviewed by: Gilberto Freire MD on 09/12/2023 2:50 PM PDT Approved by: Gilberto Freire MD on 09/12/2023 2:50 PM PDT Station ID: [id number]
== END 2023-09-12 07:56 | disposition home or self-care (01) ==
LOC: DI 07:55
PROVIDERS: ATTEND Physician Assistant
DX: S99.812A Other specified injuries of left ankle, initial encounter (principal); M25.472 Effusion, left ankle; S96.812A Strain of other specified muscles and tendons at ankle and foot level, left foot, initial encounter; S93.422A Sprain of deltoid ligament of left ankle, initial encounter

== ENCOUNTER 2023-10-23 09:20 | Outpatient (CLI) | payer OTHER ==
--- NOTE | 2023-10-23 15:28 | MRI Report ---
Knee LT WO CLINICAL INFORMATION: 32 years of age, Female, PSORIATIC ARTHRITIS. COMPARISON: None Technique: Multisequence, multiplanar MRI of the left knee was performed without intravenous contrast . FINDINGS: Menisci: The medial and lateral menisci, including the roots, are intact. Cruciate ligaments: The anterior and posterior cruciate ligaments are intact. MCL/LCL: The MCL is unremarkable. The biceps femoris tendon is unremarkable. The fibular collateral ligament is unremarkable. The iliotibial band is intact. The popliteus muscle and tendon also appear intact. Extensor mechanism: The quadricep tendon is unremarkable. The patella tendon is unremarkable. Mild piedra perolateral Hoffa's fat pad edema, which can be seen in the setting of patellofemoral maltracking. Patellofemoral joint: Alignment within the patellofemoral joint is normal. The patellofemoral ligame nts are intact. Cartilage and bone marrow signal within the patella and femoral trochlea are normal. Cartilage and bone: The cartilage of the medial and lateral compartments are well maintained. No acut e fracture. Miscellaneous: Small knee effusion. Small popliteal cyst. No intra-articular bodies are identified. N ormal muscle signal intensity and morphology. No vascular anomaly. IMPRESSION: 1.Findings suggestive of patellar maltracking. 2.Small popliteal cyst. Reviewed by: Alessandra Zapien MD on 10/23/2023 3:26 PM PDT Approved by: Alessandra Zapien MD on 10/23/2023 3:26 PM PDT Station ID: [id number]
== END 2023-10-23 09:21 | disposition home or self-care (01) ==
LOC: DI 09:20
DX: M71.22 Synovial cyst of popliteal space [Baker], left knee (principal); L40.50 Arthropathic psoriasis, unspecified